=== PATIENT | female | born 1950 | race African-American/Black ===

== ENCOUNTER → 2016-04-20 | Outpatient (CLI) | payer MEDICARE, BC ==
[2015-06-28 17:15] VITALS: BP 125/71
[~2016-04-20] MED LIST: CHOL10003 PO; CRESTOR5 MG PO; DILT180C29 PO; MECL12.52 PO; PARO40TA3 PO
--- NOTE | 2016-04-20 12:37 | RAD ---
Indication: Persistent cough for 4 weeks. Technique: Two-view chest radiograph was obtained. Comparison is from June 28, 2015. Findings: Patient has developed a large right pleural effusion. There is associated atelectasis. Left lung is clear. Heart is not enlarged and there is no heart failure. Bony structures are intact. Impression: New large right pleural effusion.
== END | disposition home or self-care (01) ==
LOC: RAD 11:51
PROVIDERS: ATTEND Internal Medicine
DX: J90 Pleural effusion, not elsewhere classified (principal); J98.11 Atelectasis
CPT/HCPCS: 71020

== ENCOUNTER → 2016-04-21 | Day surgery (SDC) | payer MEDICARE, BC ==
[2016-04-21 15:00] VITALS: BP 143/67
--- NOTE | 2016-04-21 15:01 | PDOC ---
Provider Note Provider Note CONSULT DICTATED ON MY OFFICE LINE CALL OFFICE FOR A COPY CARLINE DOYLE MD Apr 21, 2016 15:01
--- NOTE | 2016-04-21 15:07 | PDOC4 ---
PROCEDURE Procedure THORACENTESIS PERFORMED 1200 CC REMOVED NO COMPLICATION SEE ORDERS CARLINE DOYLE MD Apr 21, 2016 15:07
--- NOTE | 2016-04-21 15:27 | RAD ---
Examination: Single frontal view of the chest. History: History of post thoracentesis Comparison: 04/20/2016 Findings: The cardiomediastinal silhouette grossly appears unremarkable. Mild elevation the right hemidiaphragm is identified. Lung base airspace opacity likely atelectasis or infiltrate. Probable small residual right pleural effusion identified. No evidence of pneumothorax. Impression: 1. No evidence of pneumothorax. Right lung base airspace opacity likely atelectasis or infiltrate with probable small residual right effusion.
[2016-04-21 16:13] LABS: BF CLARITY CLOUDY; BF COLOR YELLOW
--- NOTE | 2016-04-21 18:16 | OP ---
DATE OF SURGERY: 04/21/2016 ATTENDING PHYSICIAN: Carline Doyle MD. PROCEDURE: Thoracentesis. INDICATIONS: The patient with persistent cough presents with abnormal chest x-ray revealing large right-sided effusion. Risks, benefits, and alternatives reviewed with patient. She is undergoing both diagnostic and therapeutic thoracentesis, she is very short of air. DESCRIPTION OF PROCEDURE: Timeout was performed prior to initiating the procedure. The patient was prepped in sterile fashion. I percussed dullness to the right lower mid scapular area. The intercostal space was anesthetized with 1% lidocaine, total of 10 mL. I entered the subpleural space with the small needle that was utilized to anesthetize the intercostal space. There was free flowing fluid. A stab wound was performed. Thereafter a catheter over needle was inserted into the subpleural space. There was free flowing fluid, the catheter was advanced. Needle was removed. The catheter was then attached to a vacuum bottle and a total of 1200 mL of pleural fluid was removed. The patient tolerated procedure well with no immediate complications. IMPRESSION: Right-sided effusion, etiology unclear at this time. PLAN: We will send the pleural fluid for analysis. The patient is to follow up with me in the office next week. We will obtain chest x-ray prior to discharge. CARLINE DOYLE MD DR: LORNE/nishant JOB#: [id number] / [id number] SHANTHI Huff MD
--- NOTE | 2016-04-25 11:56 | PATHOLOGY ---
CYTOPATHOLOGY REPORT CLINICAL HISTORY: Right pleural effusion. SPECIMEN(S) RECEIVED: A.Pleural fluid, Right FINAL DIAGNOSIS: Right pleural fluid, ThinPrep and cell block: - No malignant cells identified. Few mesothelial cells and inflammatory cells identified. (JPM:csd; d/t: 04/25/2016) PATHOLOGIST: Brian Gomez M.D. REPORT ELECTRONICALLY SIGNED BY: Brian Gomez M.D. DATE/TIME: 04/25/2016 11:55 GROSS PATHOLOGY: A. Pleural fluid, Right: The specimen is submitted unfixed, labeled "Lauren Nelson". Received by the Cytology Department is five mL of cloudy yellow fluid. One ThinPrep slide and a cell block were prepared. (clt 04.22.2016) BLUEPRINT ASSEMBLER(S): UCHE Virk(ASCP) INITIAL CPT CODE(S): A; 30154, 63393 Professional services performed by [facility] [place] [address] Technical services performed by [facility] at [address] [place] [address], [address] [address]. PATIENT: LAUREN NELSON /AGE: 5 1950 (Age: 65) SEX: F PATIENT #: [id number] ALT CASE #: SPECIMEN COLLECTION DATE: 04/21/2016 SPECIMEN RECEIVED DATE: 04/22/[address] [facility] [address] [place] [address], [address] [place] [address] PHONE: [phone] DIRECTOR: Jeremy Giron M.D. * * * END OF REPORT * * *
== END | disposition home or self-care (01) ==
LOC: SURG 13:07
PROVIDERS: ATTEND Internal Medicine Pulmonary Disease
DX: J90 Pleural effusion, not elsewhere classified (principal); E78.00 Pure hypercholesterolemia, unspecified; K21.9 Gastro-esophageal reflux disease without esophagitis; Z12.4 Encounter for screening for malignant neoplasm of cervix; M19.90 Unspecified osteoarthritis, unspecified site; F41.9 Anxiety disorder, unspecified; F10.99 Alcohol use, unspecified with unspecified alcohol-induced disorder
CPT/HCPCS: 71010; 82945; 83986; 84157; 87071; 87075; 87102; 87116; 87205; 89050

== ENCOUNTER → 2016-04-25 | Outpatient (CLI) | payer MEDICARE, BC ==
[2016-04-21 15:00] VITALS: BP 143/67
[~2016-04-25] MED LIST changes: +IOHEXOL 300 MG/ML 75 ML VIAL IV ONE
[2016-04-25 12:37] LABS: CREATININE 0.6 mg/dL (0.6-1.0); GFR 120.7
--- NOTE | 2016-04-25 14:24 | RAD ---
Indication pulmonary effusion. Contrast imaging through the chest was performed. No prior CT imaging is available of the chest. 75 cc of Omnipaque 300 was administered intravenously. Note is made of recent plain films and a chest x-ray June 26, 2015 interpreted as unremarkable. The thoracic aorta appears unremarkable. There is no significant hilar or mediastinal adenopathy. The left lung is clear. There is a small right pleural effusion. There is a vascular slightly lobulated soft tissue mass at the right lung base measuring 12 cm in greatest dimension. There are some peripheral calcifications and large central calcification seen associated with the mass. The etiology is unclear. Considerations would include a very aggressive primary neoplasm, possible fungal disease or an amyloidoma . Hydatid disease is felt less likely but cannot be entirely excluded The finding is not typical of pneumonia. An additional finding in the chest is not seen. IMPRESSION: Lobulated 12 cm vascular, partially calcified, mass at the right lung base. The etiology is unclear. See above discussion PQRS Compliance Statement: One or more of the following individualized dose reduction techniques were utilized for this examination: 1. Automated exposure control 2. Adjustment of the mA and/or kV according to patient size 3. Use of iterative reconstruction technique
== END | disposition home or self-care (01) ==
LOC: CT 12:07
PROVIDERS: ATTEND Internal Medicine Pulmonary Disease
DX: R91.8 Other nonspecific abnormal finding of lung field (principal)
CPT/HCPCS: 36415; 71260; 82565; 84520

== ENCOUNTER → 2016-04-28 | Outpatient (CLI) | payer MEDICARE, BC ==
[2016-04-21 15:00] VITALS: BP 143/67
[~2016-04-28] MED LIST changes: -IOHEXOL 300 MG/ML 75 ML VIAL IV ONE
--- NOTE | 2016-04-28 14:38 | RAD ---
Indication lung mass. PET/CT was performed from the skull through the proximal thigh. CT was performed primarily for attenuation and localization purposes as opposed primary diagnostic purposes. 11.8 mCi of FDG was injected. The blood sugar during the examination was 95. No prior PET/CT imaging is available. Note is made of a CT examination of the chest 04/25/2016 demonstrating a complex, vascular and partially calcified mass in the right lower lobe. On CT the visualized brain appears unremarkable. No abnormality is seen in the neck. Known mass in the right lower lobe is reproduced. Known right pleural fluid is additionally noted. These findings are all similar to the recent CT examination. The abdomen and pelvis appear unremarkable. On PET the known mass in the right lower lobe is noted to be moderately FDG avid. There is likely a component of necrosis centrally within the calcific portion of the mass. The FDG avid portion of the mass demonstrates maximum SUVs of approximately 5. There is a more intense focus of FDG activity in the right hilar area, probably representing activity in a lymph node. Maximum SUV associated with this finding is 7.4. No definite abnormal mediastinal activity is seen. The pleural fluid is not FDG avid. The radiopharmaceutical is physiologic distributed in the abdomen and pelvis. IMPRESSION: Known mass in the right lower lobe is moderately FDG avid. Maximum SUVs associated with the mass is approximately 5. (There is likely a component of central necrosis associated with the mass). The mass demonstrates equivocal SUV numbers. Neoplastic disease or infection are still in the differential. (The latter is somewhat favored). Somewhat more avid area of increased uptake in the right hilum probably reflects reactive activity in a lymph node
== END | disposition home or self-care (01) ==
LOC: PETSC 12:30
PROVIDERS: ATTEND Internal Medicine Pulmonary Disease
DX: R91.8 Other nonspecific abnormal finding of lung field (principal)
CPT/HCPCS: 78815; A9552

== ENCOUNTER 2016-05-09 06:42 | Outpatient (CLI) | payer MEDICARE, BC ==
[2016-05-09] VITALS (18 sets, daily range): BP systolic 115–142; BP diastolic 61–71
[2016-05-09] MEDS ORDERED: GLUC100018 PO (07:15)
[2016-05-09] MEDS ORDERED: MULT-129 PO (07:15)
[2016-05-09] MEDS ORDERED: ASPI-482 PO (07:15)
[2016-05-09] MEDS ORDERED: ESTR1TAB3 PO (07:15)
[2016-05-09 07:24] LABS: BASO % 1 % (0-3); EOS % 5 % (0-3); HEMATOCRIT 38.2 % (36.0-47.0); HEMOGLOBIN 12.5 g/dL (12.0-15.5); LYMPH % 17 % (24-48); MEAN CORPUSCULAR HEMOGLOBIN 30 pg (25-35); MEAN CORPUSCULAR HGB CONC 33 g/dL (31-37); MEAN CORPUSCULAR VOLUME 91 fL (79-100); MONO % 7 % (0-9); NEUT % 70 % (31-73); PLATELET COUNT 269 x10^3/uL (140-400); RED BLOOD COUNT 4.19 x10^6/uL (3.50-5.40); RED CELL DISTRIBUTION WIDTH 13.6 % (11.5-14.5); WHITE BLOOD COUNT 6.1 x10^3/uL (4.0-11.0)
[2016-05-09 07:47] LABS: INR 1.1 (0.8-1.1); PROTHROMBIN TIME PATIENT 13.4 SEC (11.7-14.0)
[2016-05-09] MEDS ORDERED: LIDOCAINE 1% / SOD BICARB 8.4% 20 ML VIAL. IJ ONE ×2 (08:11→09:00)
[2016-05-09] MEDS ORDERED: FENTANYL PF 100 MCG/2 ML VIAL. ONE (08:32)
[2016-05-09] MEDS ORDERED: MIDAZOLAM HCL/PF 2 MG/2 ML VIAL. ONE (08:32)
[2016-05-09] MEDS ORDERED: MIDAZOLAM HCL/PF 2 MG/2 ML VIAL. IV ONE (09:00)
[2016-05-09] MEDS ORDERED: FENTANYL PF 100 MCG/2 ML VIAL. IV ONE (09:00)
--- NOTE | 2016-05-09 09:48 | PDOC ---
MODERATE SEDATION ASSESSMENT RISKS/ALTERNATIVES Risks/Alternatives Risks and alternatives of this type of sedation and procedure discussed with: RISK/ALTERNATIVES: Patient H & P ON CHART H & P H & P on chart and reviewed for co-morbid conditions and appropriate labs. H&P ON CHART: Yes STATUS PREG STATUS ASSESSED: N/A MEDS/ALLERGIES REVIEWED Meds/Allergies Reviewed Medications and Allergies including time and route of recently administered narcotics and sedatives. MEDS/ALLERGIES REVIEWED: Yes ASA RATING ASA RATING: II AIRWAY ASSESSMENT Airway Assessment Airway patency, oral function limitations, presence of caps, crowns, dentures, partials, and ability to extend neck assessed. AIRWAY ASSESSMENT: Yes MALLAMPATI SCORE MALLAMPATI SCORE: II PRE-SEDATION ASSESSMENT PRE-SEDATION ASSESSMENT: Yes MITCHEL DE LA ROSA MD May 09, 2016 09:48
--- NOTE | 2016-05-09 09:58 | PDOC ---
Exam News Reporter News Reporter Kimber Audio Visual Facilities Engineer Audio Visual Facilities Engineer B Cates Pre-Procedure Diagnosis Pre-Procedure Diagnosis Large, rim calcified, 12cm x 6 cm right lung mass, with pleural fluid---new since June 2015---Infectious vs neoplastic Post-Procedure Diagnosis Post-Procedure Diagnosis Same Procedure Performed Procedure Performed CT guided Dx/Tx thoracentesis CT guided rt lung mass bx Type of Anesthesia Type of Anesthesia Local + Mod sedation Estimated Blood Loss EBL: Minimal Specimens Specimans 1000 cc right pleural fluid---initially yellow-slt hazy, becoming bloody------ Samples to micro and cyto 6 14G core bx-----3 bx to micro and 3 bx to path Condition of Patient Condition of Patient Stable. No apparent complication. No immediate post bx Ptx. Disposition Disposition From IR/CT to [facility]. 1 hr post thora/bx insp/exp CXR requested. May discharge home from [facility] post recovery, if no Ptx or other problem. F/u with Dr Roque. Full report to follow. MITCHEL DE LA ROSA MD May 09, 2016 09:57
--- NOTE | 2016-05-09 10:03 | PDOC1 ---
History and Physical Date of Procedure Date of Admission 05/09/[address] guided Dx/Tx right thoracentesis CT guided right lung mass bx Indication Indication 65 YO female with very large, partially rim calcified, 12cm x 6cm right lung mass, with pleural fluid-----new since June of 2016-----neoplastic vs infectious Past Medical History Past Medical History See Nursing Pre Procedure PMH Past Surgical History Past Surgical History See Nursing Pre Procedure PSH Current Medications Current Medications Current Medications Lidocaine/Sodium Bicarbonate (Buffered Lidocaine 1%) 20 ml STK-MED ONCE IJ ; Start 05/09/16 at 08:11; Stop 05/09/16 at 08:12; Status DC Fentanyl Citrate (Fentanyl 2ml Vial) 100 mcg STK-MED ONCE .ROUTE ; Start at 08:32; Stop 05/09/16 at 08:33; Status DC Midazolam HCl (Versed) 2 mg STK-MED ONCE .ROUTE ; Start 05/09/16 at 08:32; Stop 05/09/16 at 08:33; Status DC Lidocaine/Sodium Bicarbonate (Buffered Lidocaine 1%) 20 ml 1X ONCE IJ Last administered on 05/09/16 09:44; Start 05/09/16 at 09:00; Stop 05/09/16 at 09:13; Status DC Midazolam HCl (Versed) 2 mg 1X ONCE IV Last administered on 05/09/16 09:45; Start 05/09/16 at 09:00; Stop 05/09/16 at 09:13; Status DC Fentanyl Citrate (Fentanyl 2ml Vial) 100 mcg 1X ONCE IV Last administered on 09:45; Start 05/09/16 at 09:00; Stop 05/09/16 at 09:13; Status DC Active Scripts Active Reported One Daily For Women 50+ Adv Tb (Multivitamins-Min/Fa/Ginkgo) 1 Each Tablet 1 Each PO DAILY Glucosamine (Glucosamine Sulfate 2KCL) 1,000 Mg Tablet 500 Mg PO DAILY Aspir 81 (Aspirin) 81 Mg Tablet.dr 81 Mg PO DAILY Prempro 0.3 Mg-1.5 Mg Tablet (Estrogen,Con/M-Progest Acet) 1 Each Tablet 1 Each PO DAILY Vitamin D3 (Cholecalciferol (Vitamin D3)) 1,000 Unit Tablet 1 Tab PO DAILY Crestor (Rosuvastatin Calcium) 5 Mg Tablet 20 PO HS Diltiazem 24HR Cd (Diltiazem Hcl) 180 Mg Cap.er.24h 180 Mg PO DAILY Paroxetine Hcl 40 Mg Tablet 20 Mg PO DAILY Allergies Allergies: Coded Allergies: Sulfa (Sulfonamide Antibiotics) (Verified Allergy, Severe, facial swelling and rash, 04/21/16) Physical Exam Vital Signs Vital Signs Date Time Temp Pulse Resp B/P Pulse Ox O2 Delivery O2 Flow Rate FiO2 05/09/16 09:45 14 98 Nasal Cannula 3.0 05/09/16 09:41 70 05/09/16 07:51 97.1 133/71 97.1 Lungs: Other (diminished breath sounds rt lung base. Left lung clear) Heart: Regular rate Psych/Mental Status: Mental status NL Diagnostic Data/Imaging Images PMC CT chest from 04/25/16 and PET from 04/28/16 personally reviewed. Assessment Assessment Large, rapidly growing, partially rim calcific 12cm x 6cm rt lung mass, with surrounding pleural fluid-----neoplastic vs infectious Problems: Plan Plan CT guided Dx/Tx right thoracentesis---samples to micro and cyto CT guided rt lung mass bx---samples to micro and path MITCHEL DE LA ROSA MD May 09, 2016 10:03
--- NOTE | 2016-05-09 11:34 | RAD ---
Chest-inspiration and expiration AP views, 05/09/2016: History: Post lung biopsy evaluation Comparison is made to a study from 04/21/2016. There is an ongoing mass with adjacent infiltrate and pleural fluid in the right lower chest. The amount of pleural fluid appears to have increased. The left chest is clear. The heart size and pulmonary vascularity are normal. There is no evidence of pneumothorax. IMPRESSION: 1. Persistent mass with adjacent infiltrate and increasing pleural fluid in the right lower chest. 2. No evidence of pneumothorax status post right lung biopsy.
--- NOTE | 2016-05-10 07:11 | RAD ---
CT-guided right thoracentesis CT-guided right lung mass biopsy Indication: 65-year-old female with a large, elongated, 12 cm x 6 cm rim calcific mass within right lower lung. This mass was not present on a chest x-ray done in June of last year. A moderately large surrounding pleural effusion is present. CT-guided biopsy of the lung mass has been requested. To facilitate the biopsy, preliminary image guided thoracentesis was considered indicated. Anesthesia: 50 minutes moderate sedation was provided utilizing a total of 2 mg Versed and 100 mcg fentanyl, IV. The patient was appropriately monitored by a qualified independent observer throughout the time of moderate sedation. PQRS Compliance Statement: One or more of the following individualized dose reduction techniques was/were utilized for this CT examination or procedure: 1. Automated exposure control. 2. Adjustment of mA and/or kV according to patient size. 3. Iterative reconstruction technique. Procedure: Informed consent was obtained from the patient. She was placed supine on the CT scanner. Preliminary noncontrast CT images confirmed the presence of a large, elongated, rim calcific mass within right lower hemithorax, with a moderately large associated pleural effusion. Moderate sedation was provided with IV Versed and fentanyl. CT-guided thoracentesis: A skin site suitable for CT-guided thoracentesis was selected and marked along the lower lateral aspect of right hemithorax. That area was prepped and draped in the usual sterile fashion. Using aseptic technique, local anesthesia, and CT guidance, a small micropuncture sheath was successfully introduced into right posterolateral pleural space. The micropuncture sheath was exchanged over a guidewire for a 6 Irish drainage catheter. Approximately 1000 cc of pleural fluid was then evacuated. This pleural fluid was initially yellow-slightly hazy, eventually becoming somewhat bloody. Samples of the initial yellow-slightly hazy pleural fluid were submitted to microbiology and to cytology. Post thoracentesis CT images revealed significant reduction in volume of right pleural fluid, without pneumothorax. Patient tolerated the procedure well. The 6 Irish pleural drainage catheter was left in place during the subsequent CT-guided lung biopsy. CT-guided right lung biopsy: Following successful, uneventful CT-guided right thoracentesis, attention was turned to the elongated, large, rim calcific lesion occupying the right lower lung. A skin site suitable for CT-guided biopsy was selected and marked along the lateral aspect of lower right chest. That area was prepped and draped in the usual sterile fashion. Using aseptic technique, local anesthesia, and CT guidance, a 13-gauge needle was successfully introduced into the right lung mass. A total of 6 14-gauge core biopsy samples were obtained. 3 biopsy samples were submitted to microbiology. 3 biopsy samples were submitted in formalin to pathology. The biopsy needle was removed and a sterile dressing was applied. Patient tolerated the procedure well without apparent complication. Completion CT images revealed no postbiopsy pneumothorax. Therefore, the 6 Irish pleural drain previously placed for right thoracentesis was removed and a sterile dressing was applied. Impression: 1. Successful, uneventful CT-guided right diagnostic/therapeutic thoracentesis, as described. 2. Uneventful CT-guided biopsy of large, elongated, rim calcific right lung mass, as described.
--- NOTE | 2016-05-10 16:01 | PATHOLOGY ---
CYTOPATHOLOGY REPORT CLINICAL HISTORY: Very large Right lung mass. SPECIMEN(S) RECEIVED: A.Pleural fluid, Right FINAL DIAGNOSIS: Right pleural fluid, ThinPrep and cell block: - Atypical cells identified. - Few atypical and reactive mesothelial cells identified within a background of mesothelial cells and scattered inflammatory cells. (JPM:mgr; d/t: 05/10/16) PATHOLOGIST: Brian Gomez M.D. REPORT ELECTRONICALLY SIGNED BY: Brian Gomez M.D. DATE/TIME: 05/10/2016 16:00 GROSS PATHOLOGY: A. Pleural fluid, Right: The specimen is submitted unfixed, labeled "Lauren Nelson". Received by the Cytology Department is 25 mL of cloudy yellow fluid. One ThinPrep slide and a cell block were prepared. (clt 05.09.2016) SCREW DRIVER OPERATOR(S): UCHE Gomez(ASCP) INITIAL CPT CODE(S): A; 65201, 03712 Professional services performed [place] [facility] [place] [address] Technical services performed by [facility] at [address] [place] [address], [place] [address]. PATIENT: LAUREN NELSON /AGE: 5 1950 (Age: 65) SEX: F PATIENT #: [id number] ALT CASE #: SPECIMEN COLLECTION DATE: 05/09/2016 SPECIMEN RECEIVED DATE: 05/09/[address] [facility] [address] [place] [address], [address] [place] [address] PHONE: [phone] DIRECTOR: Jeremy Giron M.D. * * * END OF REPORT * * *
== END 2016-05-09 12:10 | disposition home or self-care (01) ==
LOC: INTRAD 06:42
PROVIDERS: ATTEND Internal Medicine Pulmonary Disease
DX: J90 Pleural effusion, not elsewhere classified (principal); E78.00 Pure hypercholesterolemia, unspecified; K21.9 Gastro-esophageal reflux disease without esophagitis; M19.90 Unspecified osteoarthritis, unspecified site; F32.9 Major depressive disorder, single episode, unspecified; Z85.41 Personal history of malignant neoplasm of cervix uteri; Z72.89 Other problems related to lifestyle
CPT/HCPCS: 32405; 32555; 36415; 71035; 77012; 85027; 85610; 87071; 87075; 87102; 87116; 87205; A4215; C1729; C1892; C1894; J2250; J3010; 88112; 88305

== ENCOUNTER → 2016-05-12 | Outpatient (CLI) | payer MEDICARE, BC ==
[2016-05-09 11:30] VITALS: BP 131/68
[~2016-05-12] MED LIST changes: +ASPI-482 PO; +ESTR1TAB3 PO; +GLUC100018 PO; +MULT-129 PO
--- NOTE | 2016-05-17 11:41 | RESP ---
DATE OF SERVICE: 05/12/2016 The patient underwent full pulmonary function testing on 05/12/2016. The FEV1 to FVC ratio was 78%. FEV1 was 1.63 liters at 85% of predicted. FVC was 2.07 liters at 84% of predicted. No bronchodilator was administered. Total lung capacity was 108% of predicted. Diffusion capacity was 78% of predicted. IMPRESSION: 1. Mild air flow limitation. 2. Slightly decrease in diffusion capacity. CARLINE DOYLE MD DR: LORNE/nishant JOB#: [id number] / [id number]
== END | disposition home or self-care (01) ==
LOC: PF 07:54
PROVIDERS: ATTEND Internal Medicine Pulmonary Disease
DX: R06.2 Wheezing (principal)
CPT/HCPCS: 94010; 94729

== ENCOUNTER → 2016-05-20 | Day surgery (SDC) | payer MEDICARE, BC ==
[~2016-05-20] MED LIST changes: +HYDROmorphone 2 MG/ML VIAL IV PRN; +IV RINGERS,LACTATED 1000ML 1,000 ML IV SCH; +LIDOCAINE 1% 1 ML SYRINGE. ID PRN; +MORPHINE SULFATE 2 MG/ML DISP.SYRIN. IV PRN; +ONDANSETRON PF 4 MG/2 ML VIAL. IV PRN; +PROCHLORPERAZINE 10 MG/2 ML VIAL. IV PRN; +PROPOFOL 20 ML IV ONE; +fentaNYL PF VIAL 100 MCG/2 ML VIAL IV PRN
[2016-05-20 12:58] LABS: BASO % 1 % (0-3); EOS % 9 % (0-3); HEMATOCRIT 36.7 % (36.0-47.0); HEMOGLOBIN 12.4 g/dL (12.0-15.5); LYMPH # 1.3 x10^3/uL (1.0-4.8); LYMPH % 18 % (24-48); MEAN CORPUSCULAR HEMOGLOBIN 30 pg (25-35); MEAN CORPUSCULAR HGB CONC 34 g/dL (31-37); MEAN CORPUSCULAR VOLUME 89 fL (79-100); MONO % 9 % (0-9); NEUT % 64 % (31-73); PLATELET COUNT 336 x10^3/uL (140-400); RED BLOOD COUNT 4.14 x10^6/uL (3.50-5.40); RED CELL DISTRIBUTION WIDTH 13.4 % (11.5-14.5); WHITE BLOOD COUNT 7.2 x10^3/uL (4.0-11.0)
[2016-05-20 13:14] LABS: INR 1.1 (0.8-1.1); PROTHROMBIN TIME PATIENT 13.4 SEC (11.7-14.0)
[2016-05-20 15:03] VITALS: BP 126/65
--- NOTE | 2016-05-20 20:24 | OP ---
DATE OF SURGERY: 05/20/2016 ATTENDING PHYSICIAN: Chaka Weber. PROCEDURE: Bronchoscopy. INDICATIONS: The patient with a recent diagnosis of sarcoma of the right lung, undergoing bronchoscopic evaluation to rule out any endobronchial extension of the tumor. Risks, benefits, and alternatives reviewed with patient and she consented. MEDICATIONS: See anesthesia's notes. ____ Timeout was performed prior to sedation. Vital signs and O2 saturation were maintained within normal limits. Bronchoscope was passed through the right naris. Vocal cords were identified moving bilaterally without any dysfunction. Vocal cords were anesthetized with a total of 5 mL of 4% lidocaine. Bronchoscope was passed through the vocal cords into the proximal trachea, which was normal. The distal trachea was normal. The right and left segments and subsegments were all inspected. There was no endobronchial lesion. FINDINGS: 1. Normal vocal cords. 2. No endobronchial lesion. CARLINE DOYLE MD DR: LORNE/nishant JOB#: [id number] / [id number]
== END ==
LOC: SURG 11:54
PROVIDERS: ATTEND Internal Medicine Pulmonary Disease
DX: C34.91 Malignant neoplasm of unspecified part of right bronchus or lung (principal); E78.5 Hyperlipidemia, unspecified; M19.90 Unspecified osteoarthritis, unspecified site; F32.9 Major depressive disorder, single episode, unspecified; K21.9 Gastro-esophageal reflux disease without esophagitis; Z98.890 Other specified postprocedural states; Z86.79 Personal history of other diseases of the circulatory system; Z72.89 Other problems related to lifestyle
CPT/HCPCS: 31622; 36415; 85027; 85610; J2704

== ENCOUNTER → 2016-07-05 | Outpatient (CLI) | payer MEDICARE, BC ==
[2016-05-20 15:03] VITALS: BP 126/65
[~2016-07-05] MED LIST changes: -HYDROmorphone 2 MG/ML VIAL IV PRN; -IV RINGERS,LACTATED 1000ML 1,000 ML IV SCH; -LIDOCAINE 1% 1 ML SYRINGE. ID PRN; -MORPHINE SULFATE 2 MG/ML DISP.SYRIN. IV PRN; -ONDANSETRON PF 4 MG/2 ML VIAL. IV PRN; -PROCHLORPERAZINE 10 MG/2 ML VIAL. IV PRN; -PROPOFOL 20 ML IV ONE; -fentaNYL PF VIAL 100 MCG/2 ML VIAL IV PRN
--- NOTE | 2016-07-05 13:46 | RAD ---
Exam: PA and lateral chest radiograph History: Cough, diagnosis of right lung cancer April 2016. Comparison: 05/09/2016. Findings: Cardiac silhouette appears within normal limits for size. No pneumothorax is seen. Left lung appears clear. There is continued opacification of the right inferior hemithorax, which is probably combination of pleural effusion and known mass. Impression: Opacification of the right inferior hemithorax, likely combination of pleural effusion and mass.
== END | disposition home or self-care (01) ==
LOC: RAD 13:10
PROVIDERS: ATTEND Internal Medicine Pulmonary Disease
DX: C34.91 Malignant neoplasm of unspecified part of right bronchus or lung (principal)
CPT/HCPCS: 71020

== ENCOUNTER → 2016-08-22 | Outpatient (CLI) | payer MEDICARE, BC ==
[2016-05-20 15:03] VITALS: BP 126/65
[~2016-08-22] MED LIST changes: +CONTRAST GIVEN MC PRN; +IOHEXOL 240 MG/ML 50ML VIAL. PO ONE; +IOHEXOL 300 MG/ML 75 ML VIAL IV ONE
--- NOTE | 2016-08-22 11:36 | RAD ---
EXAM: CT OF THE CHEST, ABDOMEN AND PELVIS WITH INTRAVENOUS CONTRAST. HISTORY: Lung cancer restaging. TECHNIQUE: Computed tomography of the chest, abdomen and pelvis was performed after the intravenous administration of 75 mL Omnipaque 300. COMPARISON: 04/25/2016. FINDINGS: Bone windows reveal no suspicious lesions. The rim calcified mass in the right lung base has significantly increased in size since the prior study. It now measures 16.1 x 12.2 x 10.7 cm as compared with approximately 12 x 8 cm previously. A 2nd uncalcified portion inferomedially abuts the right atrial border and measures 4.8 x 4.2 cm. Previously this measured 4.0 x 3.1 cm. It is unclear if this is a pleural or pulmonary lesion. The right lower lobe is mostly atelectatic. A moderate to large right pleural effusion has increased in size. There are no pathologically enlarged mediastinal or axillary lymph nodes. There is a small amount of pericardial fluid. The heart is not enlarged. The left lung remains clear. A subcentimeter cyst in the right hepatic lobe is stable. Uncalcified cholelithiasis is suspected. The pancreas, adrenal glands, kidneys and spleen are unremarkable. There are no pathologically enlarged lymph nodes. The appendix is not inflamed. The uterus is lobulated suggesting fibroids. There is no obstruction. IMPRESSION: 1. Significant interval increase in size and the right pleural or pulmonary mass which now measures 16 x 12 cm. There are rim calcified, cystic and solid uncalcified components. 2. Increased moderate to large right pleural effusion. 3. No evidence of distant metastatic disease. 4. Lobulated uterus suggesting small fibroids. Sonography could further evaluate if there is persistent concern. *One or more of the following individualized dose reduction techniques were utilized for this examination: 1. Automated exposure control. 2. Adjustment of the mA and/or kV according to patient size. 3. Use of iterative reconstruction technique.
== END | disposition home or self-care (01) ==
LOC: CT 08:49
PROVIDERS: ATTEND Internal Medicine Hematology & Oncology
DX: C34.31 Malignant neoplasm of lower lobe, right bronchus or lung (principal); J90 Pleural effusion, not elsewhere classified
CPT/HCPCS: 71260; 74177; Q9966; Q9967

== ENCOUNTER 2016-09-14 08:40 | Outpatient (CLI) | payer MEDICARE, BC ==
[~2016-09-14] VITALS: Ht 162.6 cm; Wt 58.1 kg
[2016-09-14] VITALS (8 sets, daily range): BP systolic 128–140; BP diastolic 69–81
[~2016-09-14 08:40] MED LIST changes: -CONTRAST GIVEN MC PRN; -IOHEXOL 240 MG/ML 50ML VIAL. PO ONE; -IOHEXOL 300 MG/ML 75 ML VIAL IV ONE
[2016-09-14 09:08] LABS: BASO % 1 % (0-3); EOS % 2 % (0-3); HEMATOCRIT 37.3 % (36.0-47.0); LYMPH # 0.8 x10^3/uL (1.0-4.8); LYMPH % 12 % (24-48); MEAN CORPUSCULAR HEMOGLOBIN 28 pg (25-35); MEAN CORPUSCULAR HGB CONC 32 g/dL (31-37); MEAN CORPUSCULAR VOLUME 88 fL (79-100); MONO % 9 % (0-9); NEUT % 77 % (31-73); PLATELET COUNT 284 x10^3/uL (140-400); RED BLOOD COUNT 4.26 x10^6/uL (3.50-5.40); RED CELL DISTRIBUTION WIDTH 19.1 % (11.5-14.5); WHITE BLOOD COUNT 6.6 x10^3/uL (4.0-11.0)
[2016-09-14 09:18] LABS: INR 1.2 (0.8-1.1); PROTHROMBIN TIME PATIENT 14.9 SEC (11.7-14.0)
[2016-09-14] MEDS ORDERED: DOXY100C2 PO (09:22)
--- NOTE | 2016-09-14 09:56 | RAD ---
Indication right lateral effusion. Calcified mass. Prethoracentesis. PA and lateral views of the chest were obtained. Comparison is made to an examination 07/05/2016. Note is made of a CT examination 08/22/2016 demonstrating a right pleural effusion and a pleural-based or parenchymal mass in the right lung. The heart and pulmonary vessels are unremarkable and the left lung is clear. There is diminished aeration of the right lung relative to the previous plain film exam compatible with increasing pleural fluid. IMPRESSION: Increasing pleural fluid in the right lung
[2016-09-14] MEDS ORDERED: LIDOCAINE 1% / SOD BICARB 8.4% 20 ML VIAL. IJ ONE ×2 (10:20→10:30)
--- NOTE | 2016-09-14 12:27 | RAD ---
Indication post thoracentesis. A single view of the chest was obtained at 1211 and is compared to an examination approximately 2 1/2 hours earlier. There is less right pleural fluid compatible with interval thoracentesis. No complication is seen and specifically no pneumothorax is seen. IMPRESSION: No evidence of pneumothorax post thoracentesis
--- NOTE | 2016-09-14 14:46 | RAD ---
Ultrasound-guided right thoracentesis 09/14/2016 Indication: Recurrent malignant effusion Procedure: The risks and benefits of the procedure were discussed patient. Informed consent was obtained. The patient was brought to the interventional suite placed in the seated position. A timeout procedure was performed. The right posterior chest was prepped and draped using sterile barrier technique. Ultrasound evaluation demonstrated a moderate pleural effusion surrounding a atelectatic right lower lobe. Right lower lobe mass which is partially calcified is seen by ultrasound. 1% lidocaine without epinephrine was administered for local anesthesia. A 5 Monegasque Yueh needle was advanced into the pleural space under direct ultrasound guidance. 1.2 L of pleural fluid was removed. The catheter was removed and manual pressure held to achieve hemostasis. A sterile dressing was applied. No immediate complications were identified. Impression: Successful ultrasound-guided right thoracentesis
== END 2016-09-14 12:45 | disposition home or self-care (01) ==
LOC: INTRAD 08:40
PROVIDERS: ATTEND Internal Medicine
DX: J91.0 Malignant pleural effusion (principal); E78.00 Pure hypercholesterolemia, unspecified; I48.91 Unspecified atrial fibrillation; K21.9 Gastro-esophageal reflux disease without esophagitis; M19.90 Unspecified osteoarthritis, unspecified site; F32.9 Major depressive disorder, single episode, unspecified; Z85.41 Personal history of malignant neoplasm of cervix uteri; Z87.39 Personal history of other diseases of the musculoskeletal system and connective tissue; Z72.89 Other problems related to lifestyle; Z88.2 Allergy status to sulfonamides
CPT/HCPCS: 32555; 36415; 71010; 71020; 85027; 85610

== ENCOUNTER → 2016-10-24 | Outpatient (CLI) | payer MEDICARE, BC ==
[2016-09-14 12:25] VITALS: BP 134/79
[~2016-10-24] MED LIST changes: +DOXY100C2 PO
--- NOTE | 2016-10-24 12:10 | RAD ---
Indication shortness of air. Frontal and lateral views of the chest were obtained and are compared to an examination 09/14/2016. There is a large right pleural effusion. The amount of pleural fluid is similar to slightly greater than on the previous exam. The heart and pulmonary vessels appear normal. The left lung is clear. IMPRESSION: Large right pleural effusion
== END | disposition home or self-care (01) ==
LOC: RAD 11:36
PROVIDERS: ATTEND Internal Medicine Pulmonary Disease
DX: J90 Pleural effusion, not elsewhere classified (principal); R06.02 Shortness of breath
CPT/HCPCS: 71020

== ENCOUNTER → 2016-11-02 | Day surgery (SDC) | payer MEDICARE, BC ==
[2016-11-02 12:00] VITALS: BP 151/82
--- NOTE | 2016-11-02 12:07 | RAD ---
EXAM: Chest, 2 views. HISTORY: Pleural effusion. COMPARISON: 10/24/2016. FINDINGS: Frontal and lateral views of the chest are obtained. There is a large right pleural effusion, similar compared to the prior study. The right lung apex remains aerated. There is suspected stable right mid and lower thorax airspace disease. The left lung is clear. The heart is normal in size. IMPRESSION: Large right pleural effusion with mid and lower lung airspace disease, stable in appearance.
--- NOTE | 2016-11-02 13:28 | PDOC4 ---
PROCEDURE Procedure FULL REPORT DICTATED [id number] REMOVED [id number] CC STRAW COLOR FLUID NO IMMEDIATE COMPLICATIONS CARLINE DOYLE MD Nov 02, 2016 13:28
--- NOTE | 2016-11-02 13:51 | RAD ---
EXAM: Chest, 2 views. HISTORY: Thoracentesis. COMPARISON: 11/02/2016. FINDINGS: Frontal and lateral views of the chest are obtained. There has been slight interval decrease in a moderate right pleural effusion. There is a partially peripherally calcified mass within the right lower thorax. There is right middle and lower lobe atelectasis or infiltrate. There is left basilar atelectasis. The heart is normal in size. IMPRESSION: 1. Slight interval decrease in a moderate right pleural effusion. No pneumothorax is seen status post thoracentesis. 2. Partially peripherally calcified right lower lobe mass, better characterized on the CT dated 08/22/2016. 3. Right middle lobe and lower lobe atelectasis or infiltrate.
--- NOTE | 2016-11-02 17:58 | OP ---
DATE OF SURGERY: 11/02/2016 PROCEDURE: Thoracentesis. INDICATIONS: The patient with recurrent pleural effusion, suspect malignant, has a history of cancer, undergoing a diagnostic and therapeutic thoracentesis. She is becoming more short of air. Chest x-ray revealed reaccumulation of pleural fluid on the right side. Risks, benefits and alternatives reviewed with the patient and she consented. DESCRIPTION OF PROCEDURE: The patient was prepped in sterile fashion. I percussed dullness to the right midscapular lower back. A 1% lidocaine was utilized to anesthetize the intercostal space. A stab wound was performed. A catheter over needle was inserted into the pleural space with return of free flowing straw-colored fluid. The needle was removed. The catheter was attached to a vacuum bottle. A total of 1300 mL of fluid was removed. The patient tolerated the procedure well with minimal discomfort ____ and she had some discomfort and cough. IMPRESSION: 1. Recurrent malignant effusion. 2. Progressive dyspnea. PLAN: Therapeutic and diagnostic thoracentesis as indicated above. CARLINE DOYLE MD DR: LORNE/nishant JOB#: [id number] / [id number] Feliciano You MD, Dr.
== END | disposition home or self-care (01) ==
LOC: SURG 11:44
PROVIDERS: ATTEND Internal Medicine Pulmonary Disease
DX: J91.0 Malignant pleural effusion (principal); J98.11 Atelectasis; E78.00 Pure hypercholesterolemia, unspecified; I48.91 Unspecified atrial fibrillation; K21.9 Gastro-esophageal reflux disease without esophagitis; F32.9 Major depressive disorder, single episode, unspecified; Z87.39 Personal history of other diseases of the musculoskeletal system and connective tissue; Z85.118 Personal history of other malignant neoplasm of bronchus and lung; Z72.89 Other problems related to lifestyle; Z88.2 Allergy status to sulfonamides
CPT/HCPCS: 71020

== ENCOUNTER → 2016-12-13 | Day surgery (SDC) | payer MEDICARE, BC ==
[2016-12-13 13:30] VITALS: BP 144/65
--- NOTE | 2016-12-13 15:20 | PDOC4 ---
PROCEDURE Procedure THORACENTESIS PERFORMED REMOVED 1300 CC OF STRAW COLOR FLUID NO COMPLICATION NOTE DICTATED CARLINE DOYLE MD Dec 13, 2016 15:20
--- NOTE | 2016-12-13 15:51 | RAD ---
Portable AP upright chest x-ray performed at 1530 History: Status post right-sided thoracentesis. IMPRESSION: A large right-sided pleural effusion is again evident and is smaller in size since the previous study dated December 12, 2016 after a thoracentesis. A tiny pneumothorax is seen laterally. Left lung field remains clear.
--- NOTE | 2016-12-13 18:19 | OP ---
DATE OF SURGERY: 12/13/2016 PROCEDURE: Thoracentesis. INDICATIONS: Recurrent pleural effusion. The patient is undergoing cancer treatment under the direction of Dr. Jordan. The patient called the office with increasing shortness of breath. Chest x-ray was obtained revealing increasing right-sided effusion. Risks, benefits and alternatives to thoracentesis were reviewed with the patient. She consented. DESCRIPTION OF PROCEDURE: Timeout was performed prior to performing the procedure. The patient was sat up at the edge of the bed. I percussed dullness to the right midscapular lower back area. The skin was prepped in sterile fashion. The intercostal space was anesthetized with a total of 10 mL of 1% lidocaine. I entered this pleural space with a small needle. There was free flowing fluid. The needle was removed. A stab wound was performed. The catheter over needle was inserted into the pleural space. There was free flowing fluid. The needle was removed. The catheter was attached to a vacuum bottle and a total of 1300 mL of straw-colored fluid was removed. The patient tolerated the procedure well with no immediate complications. IMPRESSION: Suspect recurrent pleural effusion related to malignancy. PLAN: Repeat chest x-ray. Follow up with Dr. Jordan. CARLINE DOYLE MD DR: LORNE/nishant JOB#: [id number] / [id number] ALEXEY Saleh MD
== END | disposition home or self-care (01) ==
LOC: SURG 13:09
PROVIDERS: ATTEND Internal Medicine Pulmonary Disease
DX: J90 Pleural effusion, not elsewhere classified (principal); K21.9 Gastro-esophageal reflux disease without esophagitis; F32.9 Major depressive disorder, single episode, unspecified; E78.00 Pure hypercholesterolemia, unspecified; I48.91 Unspecified atrial fibrillation; Z85.118 Personal history of other malignant neoplasm of bronchus and lung; Z88.2 Allergy status to sulfonamides
CPT/HCPCS: 71010

== ENCOUNTER 2017-02-21 11:23 | Outpatient (CLI) | payer MEDICARE, BC ==
[2017-02-21] MEDS ORDERED: LIDOCAINE WITH 8.4% SOD BICARB 3 ML DISP.SYRIN. IJ (12:57)
[2017-02-21 13:34] LABS: INR 1.2 (0.8-1.1); PROTHROMBIN TIME PATIENT 14.7 SEC (11.7-14.0)
[2017-02-21] MEDS: LIDOCAINE WITH 8.4% SOD BICARB 3 ML DISP.SYRIN. IJ (14:13)
== END 2017-02-21 15:55 | disposition home or self-care (01) ==
LOC: RAD 11:23
DX: J90 Pleural effusion, not elsewhere classified (principal); J98.11 Atelectasis
CPT/HCPCS: 32555; 36415; 71045; 71046; 85610; 87102; 87116; 87205; 88112; 88305

== ENCOUNTER → 2017-03-22 | Day surgery (SDC) | payer MEDICARE, BC | END | disposition home or self-care (01) | LOC: SURG 12:07 | DX: J90 Pleural effusion, not elsewhere classified (principal); E78.00 Pure hypercholesterolemia, unspecified; I48.91 Unspecified atrial fibrillation; K21.9 Gastro-esophageal reflux disease without esophagitis; M19.90 Unspecified osteoarthritis, unspecified site; F32.9 Major depressive disorder, single episode, unspecified; Z72.89 Other problems related to lifestyle; Z87.39 Personal history of other diseases of the musculoskeletal system and connective tissue; Z88.2 Allergy status to sulfonamides | CPT/HCPCS: 32554; 71045 ==

== ENCOUNTER 2017-04-14 07:14 | Outpatient (CLI) | payer MEDICARE, BC ==
[2017-04-14 07:37] LABS: ADD MAN DIFF? NO
[2017-04-14 07:40] LABS: BASO % 1 % (0-3); EOS # 0.1 x10^3/uL (0.0-0.7); EOS % 2 % (0-3); HEMATOCRIT 37.4 % (36.0-47.0); LYMPH # 0.8 x10^3/uL (1.0-4.8); LYMPH % 13 % (24-48); MEAN CORPUSCULAR HEMOGLOBIN 28 pg (25-35); MEAN CORPUSCULAR HGB CONC 32 g/dL (31-37); MEAN CORPUSCULAR VOLUME 87 fL (79-100); MONO # 0.5 x10^3/uL (0.0-1.1); MONO % 9 % (0-9); NEUT # 4.5 x10^3uL (1.8-7.7); NEUT % 75 % (31-73); PLATELET COUNT 307 x10^3/uL (140-400); RED CELL DISTRIBUTION WIDTH 15.7 % (11.5-14.5)
[2017-04-14 08:00] LABS: INR 1.2 (0.8-1.1); PROTHROMBIN TIME PATIENT 14.1 SEC (11.7-14.0)
== END 2017-04-14 11:32 | disposition home or self-care (01) ==
LOC: INTRAD 07:14
DX: J90 Pleural effusion, not elsewhere classified (principal); E78.00 Pure hypercholesterolemia, unspecified; I48.91 Unspecified atrial fibrillation; M19.90 Unspecified osteoarthritis, unspecified site; F32.9 Major depressive disorder, single episode, unspecified; K21.9 Gastro-esophageal reflux disease without esophagitis; Z88.1 Allergy status to other antibiotic agents; Z85.118 Personal history of other malignant neoplasm of bronchus and lung; Z86.010 Personal history of colon polyps; Z98.890 Other specified postprocedural states; Z88.2 Allergy status to sulfonamides
CPT/HCPCS: 32555; 36415; 71045; 85025; 85610

== ENCOUNTER 2017-05-09 08:38 | Outpatient (CLI) | payer MEDICARE, BC ==
[2017-05-09 09:08] LABS: ADD MAN DIFF? NO
[2017-05-09 09:13] LABS: BASO % 1 % (0-3); EOS # 0.2 x10^3/uL (0.0-0.7); EOS % 2 % (0-3); HEMATOCRIT 35.5 % (36.0-47.0); HEMOGLOBIN 11.4 g/dL (12.0-15.5); LYMPH # 0.7 x10^3/uL (1.0-4.8); LYMPH % 10 % (24-48); MEAN CORPUSCULAR HEMOGLOBIN 28 pg (25-35); MEAN CORPUSCULAR HGB CONC 32 g/dL (31-37); MEAN CORPUSCULAR VOLUME 86 fL (79-100); MONO # 0.7 x10^3/uL (0.0-1.1); MONO % 10 % (0-9); NEUT # 5.6 x10^3uL (1.8-7.7); NEUT % 78 % (31-73); PLATELET COUNT 319 x10^3/uL (140-400); RED BLOOD COUNT 4.13 x10^6/uL (3.50-5.40); RED CELL DISTRIBUTION WIDTH 16.3 % (11.5-14.5); WHITE BLOOD COUNT 7.2 x10^3/uL (4.0-11.0)
[2017-05-09] MEDS ORDERED: LIDOCAINE WITH 8.4% SOD BICARB 3 ML DISP.SYRIN. (09:19)
[2017-05-09 09:22] LABS: INR 1.2 (0.8-1.1); PROTHROMBIN TIME PATIENT 14.2 SEC (11.7-14.0)
[2017-05-09] MEDS: LIDOCAINE WITH 8.4% SOD BICARB 3 ML DISP.SYRIN. IJ (10:15)
[2017-05-09] MEDS ORDERED: ACETAMINOPHEN 325 MG TABLET. PO ×2 (11:45→12:00)
== END 2017-05-09 12:33 | disposition home or self-care (01) ==
LOC: INTRAD 08:38
DX: J90 Pleural effusion, not elsewhere classified (principal)
CPT/HCPCS: 32555; 36415; 71045; 85025; 85610

== ENCOUNTER 2017-06-02 07:04 | Outpatient (CLI) | payer MEDICARE, BC ==
[2017-06-02] MEDS ORDERED: LIDOCAINE WITH 8.4% SOD BICARB 3 ML DISP.SYRIN. (07:55)
[2017-06-02] MEDS: LIDOCAINE WITH 8.4% SOD BICARB 3 ML DISP.SYRIN. IJ (08:15)
== END 2017-06-02 13:16 | disposition home or self-care (01) ==
LOC: INTRAD 07:04
DX: J90 Pleural effusion, not elsewhere classified (principal)
CPT/HCPCS: 32555; 71045; 71046

== ENCOUNTER 2017-06-04 08:41 | Emergency (ER) | payer MEDICARE, BC ==
[2017-06-04] MEDS ORDERED: fentaNYL PF VIAL 100 MCG/2 ML VIAL IV (09:30)
[2017-06-04 09:51] LABS: ADD MAN DIFF? NO
[2017-06-04 09:54] LABS: BASO % 1 % (0-3); EOS # 0.2 x10^3/uL (0.0-0.7); EOS % 2 % (0-3); HEMATOCRIT 36.1 % (36.0-47.0); LYMPH # 0.7 x10^3/uL (1.0-4.8); LYMPH % 9 % (24-48); MEAN CORPUSCULAR HEMOGLOBIN 28 pg (25-35); MEAN CORPUSCULAR HGB CONC 33 g/dL (31-37); MEAN CORPUSCULAR VOLUME 85 fL (79-100); MONO # 0.8 x10^3/uL (0.0-1.1); MONO % 9 % (0-9); NEUT # 6.4 x10^3uL (1.8-7.7); NEUT % 79 % (31-73); PLATELET COUNT 349 x10^3/uL (140-400); RED BLOOD COUNT 4.26 x10^6/uL (3.50-5.40); RED CELL DISTRIBUTION WIDTH 16.8 % (11.5-14.5); WHITE BLOOD COUNT 8.1 x10^3/uL (4.0-11.0)
[2017-06-04 10:04] LABS: ANION GAP 7 (6-14); BLOOD UREA NITROGEN 14 mg/dL (7-20); BUN/CREATININE RATIO 28 (6-20); CALCIUM 9.6 mg/dL (8.5-10.1); CARBON DIOXIDE 31 mmol/L (21-32); CHLORIDE 105 mmol/L (98-107); CREATININE 0.5 mg/dL (0.6-1.0); GFR 148.5; GLUCOSE 103 mg/dL (70-99); POTASSIUM 4.4 mmol/L (3.5-5.1); SODIUM 143 mmol/L (136-145)
[2017-06-04 10:10] LABS: ALBUMIN/GLOBULIN RATIO 0.6 (1.0-1.7); ALK PHOS 120 U/L (46-116); ALT (SGPT) 15 U/L (14-59); AST (SGOT) 15 U/L (15-37); TOTAL BILIRUBIN 0.5 mg/dL (0.2-1.0); TOTAL PROTEIN 7.7 g/dL (6.4-8.2)
[2017-06-04 10:11] LABS: TROPONINI < 0.017 ng/mL (0.000-0.055)
[2017-06-04 10:14] LABS: NT-PRO BNP 130 pg/mL (0-124)
[2017-06-04 10:21] LABS: INR 1.1 (0.8-1.1); PROTHROMBIN TIME PATIENT 13.8 SEC (11.7-14.0)
[2017-06-04 10:22] LABS: BILIRUBIN,URINE NEGATIVE (NEG); CLARITY,URINE CLEAR; COLOR,URINE YELLOW; GLUCOSE,URINE NEGATIVE (NEG); NITRITE,URINE NEGATIVE (NEG); PROTEIN,URINE NEGATIVE (NEG-TRACE)
[2017-06-04 10:29] LABS: PARTIAL THROMBOPLASTIN TIME 34 SEC (24-38)
[2017-06-04 10:43] LABS: BACTERIA,URINE MANY /HPF (0-FEW); SQUAMOUS EPITHELIAL CELL,UR MOD /LPF
[2017-06-04] MEDS: HYDROcodone/APAP 5/325MG 1 TAB TABLET PO (10:49)
[2017-06-04] MEDS: ONDANSETRON PF 4 MG/2 ML VIAL. IV (11:27)
[2017-06-04] MEDS: IOHEXOL 300 MG/ML 100ML VIAL. IV (11:43)
[2017-06-04] MEDS: IV NORMAL SALINE 1000ML BAG 1,000 ML IV (13:11)
== END 2017-06-04 14:52 | disposition home or self-care (01) ==
LOC: ER 08:41
DX: R07.89 Other chest pain (principal); E78.00 Pure hypercholesterolemia, unspecified; K21.9 Gastro-esophageal reflux disease without esophagitis; F32.9 Major depressive disorder, single episode, unspecified; Z88.2 Allergy status to sulfonamides
CPT/HCPCS: 36415; 71046; 71275; 80053; 81001; 83880; 84484; 85025; 85610; 85730; 87086; 93005; 96361; 96374; 99285-25; J2405; J7030; Q9967

== ENCOUNTER 2017-06-18 23:09 | Inpatient (IN) | payer MEDICARE, BC ==
[2017-06-18] MEDS ORDERED: CONTRAST GIVEN MC (23:45)
[2017-06-18 23:46] LABS: ADD MAN DIFF? NO
[2017-06-18 23:49] LABS: BASO % 0 % (0-3); EOS # 0.1 x10^3/uL (0.0-0.7); EOS % 1 % (0-3); HEMATOCRIT 31.5 % (36.0-47.0); HEMOGLOBIN 10.2 g/dL (12.0-15.5); LYMPH # 0.7 x10^3/uL (1.0-4.8); LYMPH % 6 % (24-48); MEAN CORPUSCULAR HEMOGLOBIN 28 pg (25-35); MEAN CORPUSCULAR HGB CONC 32 g/dL (31-37); MEAN CORPUSCULAR VOLUME 85 fL (79-100); MONO % 9 % (0-9); NEUT # 9.8 x10^3uL (1.8-7.7); NEUT % 85 % (31-73); PLATELET COUNT 430 x10^3/uL (140-400); RED BLOOD COUNT 3.69 x10^6/uL (3.50-5.40); RED CELL DISTRIBUTION WIDTH 16.7 % (11.5-14.5); WHITE BLOOD COUNT 11.5 x10^3/uL (4.0-11.0)
[2017-06-19 00:02] LABS: ANION GAP 6 (6-14); BLOOD UREA NITROGEN 11 mg/dL (7-20); BUN/CREATININE RATIO 18 (6-20); CALCIUM 9.4 mg/dL (8.5-10.1); CARBON DIOXIDE 31 mmol/L (21-32); CHLORIDE 101 mmol/L (98-107); CREATININE 0.6 mg/dL (0.6-1.0); GFR 119.9; GLUCOSE 106 mg/dL (70-99); POTASSIUM 3.8 mmol/L (3.5-5.1); SODIUM 138 mmol/L (136-145)
[2017-06-19 00:08] LABS: ALBUMIN 2.9 g/dL (3.4-5.0); ALBUMIN/GLOBULIN RATIO 0.6 (1.0-1.7); ALK PHOS 129 U/L (46-116); ALT (SGPT) 19 U/L (14-59); AST (SGOT) 26 U/L (15-37); TOTAL BILIRUBIN 0.5 mg/dL (0.2-1.0); TOTAL PROTEIN 7.5 g/dL (6.4-8.2)
[2017-06-19 00:11] LABS: LACTIC ACID 1.4 mmol/L (0.4-2.0); TROPONINI < 0.017 ng/mL (0.000-0.055)
[2017-06-19 00:14] LABS: NT-PRO BNP 119 pg/mL (0-124)
[2017-06-19] MEDS: IOHEXOL 300 MG/ML 100ML VIAL. IV (00:43)
[2017-06-19] MEDS ORDERED: fentaNYL PF VIAL 100 MCG/2 ML VIAL IV (01:15)
[2017-06-19] MEDS ORDERED: ACETAMINOPHEN 325 MG TABLET. PO ×2 (08:30)
[2017-06-19] MEDS ORDERED: MAGNESIUM HYDROXIDE 2,400 MG/30 ML ORAL.SUSP. PO (08:30)
[2017-06-19] MEDS: ESTROGEN/M-PROGEST 0.3/1.5MG TABLET. PO (09:00)
[2017-06-19] MEDS: CHOLECALCIFEROL (VITAMIN D3) 1,000 UNIT TABLET PO (09:00)
[2017-06-19] MEDS: PARoxetine 20 MG TABLET PO (09:51)
[2017-06-19] MEDS ORDERED: LIDOCAINE WITH 8.4% SOD BICARB 3 ML DISP.SYRIN. (12:09)
[2017-06-19] MEDS: LIDOCAINE WITH 8.4% SOD BICARB 3 ML DISP.SYRIN. INJ (12:53)
[2017-06-19] MEDS: HYDROcodone/APAP 5/325MG 1 TAB TABLET PO ×2 (14:03→21:52)
[2017-06-19 15:56] LABS: BF CLARITY TURBID; BF COLOR RED; BF SOURCE PLEURAL; BF WBC COUNT 1400 /cmm
[2017-06-19 15:57] LABS: BF MON % 57 %; BF PMN % 43 %; BF RBC COUNT 466316 /cmm
[2017-06-19] MEDS: ATORVASTATIN CALCIUM 40 MG TABLET. PO (19:55)
[2017-06-19] MEDS: ONDANSETRON PF 4 MG/2 ML VIAL. IV (21:55)
[2017-06-20 05:05] LABS: ADD MAN DIFF? NO
[2017-06-20 05:14] LABS: BASO % 0 % (0-3); EOS # 0.3 x10^3/uL (0.0-0.7); EOS % 4 % (0-3); HEMATOCRIT 28.9 % (36.0-47.0); HEMOGLOBIN 9.6 g/dL (12.0-15.5); LYMPH # 0.5 x10^3/uL (1.0-4.8); LYMPH % 7 % (24-48); MEAN CORPUSCULAR HEMOGLOBIN 28 pg (25-35); MEAN CORPUSCULAR HGB CONC 33 g/dL (31-37); MEAN CORPUSCULAR VOLUME 86 fL (79-100); MONO # 0.7 x10^3/uL (0.0-1.1); MONO % 10 % (0-9); NEUT # 5.8 x10^3uL (1.8-7.7); NEUT % 79 % (31-73); PLATELET COUNT 373 x10^3/uL (140-400); RED BLOOD COUNT 3.37 x10^6/uL (3.50-5.40); RED CELL DISTRIBUTION WIDTH 16.7 % (11.5-14.5); WHITE BLOOD COUNT 7.3 x10^3/uL (4.0-11.0)
[2017-06-20 05:43] LABS: ANION GAP 4 (6-14); BLOOD UREA NITROGEN 9 mg/dL (7-20); CARBON DIOXIDE 34 mmol/L (21-32); CHLORIDE 104 mmol/L (98-107); CREATININE 0.4 mg/dL (0.6-1.0); GFR 191.5; GLUCOSE 87 mg/dL (70-99); POTASSIUM 3.8 mmol/L (3.5-5.1); SODIUM 142 mmol/L (136-145)
[2017-06-20] MEDS: PARoxetine 20 MG TABLET PO (08:00)
[2017-06-20] MEDS: CHOLECALCIFEROL (VITAMIN D3) 1,000 UNIT TABLET PO (08:00)
[2017-06-20] MEDS: ESTROGEN/M-PROGEST 0.3/1.5MG TABLET. PO (09:00)
== END 2017-06-20 15:00 | disposition home or self-care (01) | DRG 180 ==
LOC: ER 23:09 → 4 NORTH 23:39
PROC: 0W993ZZ Drainage of Right Pleural Cavity, Percutaneous Approach (ICD-10-PCS; principal; 2017-06-19)
DX: C34.31 Malignant neoplasm of lower lobe, right bronchus or lung (principal); J96.91 Respiratory failure, unspecified with hypoxia; J90 Pleural effusion, not elsewhere classified; D72.829 Elevated white blood cell count, unspecified; D63.0 Anemia in neoplastic disease; E78.00 Pure hypercholesterolemia, unspecified; E78.5 Hyperlipidemia, unspecified; K21.9 Gastro-esophageal reflux disease without esophagitis; F32.9 Major depressive disorder, single episode, unspecified; Z85.41 Personal history of malignant neoplasm of cervix uteri; Z88.1 Allergy status to other antibiotic agents; Z51.11 Encounter for antineoplastic chemotherapy; Z80.9 Family history of malignant neoplasm, unspecified
CPT/HCPCS: 32555; 36415; 71045; 71275; 80048; 80053; 83605; 83880; 84484; 85025; 87040; 87071; 87075; 87205; 89050; 93005; 94618; 96365; 99285; 99285-25; J1956; J2405; Q9967

== ENCOUNTER 2017-07-07 08:47 | Outpatient (CLI) | payer MEDICARE, BC ==
[2017-07-07] MEDS ORDERED: LIDOCAINE WITH 8.4% SOD BICARB 3 ML DISP.SYRIN. (09:14)
[2017-07-07] MEDS: LIDOCAINE WITH 8.4% SOD BICARB 3 ML DISP.SYRIN. INJ (09:48)
[2017-07-07] MEDS: diphenhydrAMINE HCL 25 MG CAPSULE PO (11:17)
[2017-07-07] MEDS: TRIAMCINOLONE ACETONIDE 0.1% TOPICAL CREAM 15GM TUBE. TP (11:18)
== END 2017-07-07 11:48 | disposition home or self-care (01) ==
LOC: INTRAD 08:47
DX: J90 Pleural effusion, not elsewhere classified (principal); Z88.1 Allergy status to other antibiotic agents; E78.00 Pure hypercholesterolemia, unspecified; F32.9 Major depressive disorder, single episode, unspecified; K21.9 Gastro-esophageal reflux disease without esophagitis; I48.91 Unspecified atrial fibrillation; Z85.118 Personal history of other malignant neoplasm of bronchus and lung; Z87.01 Personal history of pneumonia (recurrent); Z86.010 Personal history of colon polyps; Z98.890 Other specified postprocedural states; M17.11 Unilateral primary osteoarthritis, right knee; Z72.89 Other problems related to lifestyle; M06.841 Other specified rheumatoid arthritis, right hand
CPT/HCPCS: 32555; 71045; Q0163

== ENCOUNTER 2017-07-27 07:11 | Outpatient (CLI) | payer MEDICARE, BC ==
[2017-07-27 07:41] LABS: ADD MAN DIFF? NO
[2017-07-27 07:46] LABS: BASO % 0 % (0-3); EOS # 0.1 x10^3/uL (0.0-0.7); EOS % 2 % (0-3); HEMATOCRIT 29.4 % (36.0-47.0); HEMOGLOBIN 9.4 g/dL (12.0-15.5); LYMPH # 0.4 x10^3/uL (1.0-4.8); LYMPH % 6 % (24-48); MEAN CORPUSCULAR HEMOGLOBIN 26 pg (25-35); MEAN CORPUSCULAR HGB CONC 32 g/dL (31-37); MEAN CORPUSCULAR VOLUME 82 fL (79-100); MONO # 0.7 x10^3/uL (0.0-1.1); MONO % 10 % (0-9); NEUT # 5.2 x10^3uL (1.8-7.7); NEUT % 81 % (31-73); PLATELET COUNT 319 x10^3/uL (140-400); RED BLOOD COUNT 3.59 x10^6/uL (3.50-5.40); RED CELL DISTRIBUTION WIDTH 17.2 % (11.5-14.5); WHITE BLOOD COUNT 6.4 x10^3/uL (4.0-11.0)
[2017-07-27] MEDS ORDERED: LIDOCAINE WITH 8.4% SOD BICARB 3 ML DISP.SYRIN. (07:54)
[2017-07-27 08:00] LABS: INR 1.2 (0.8-1.1); PROTHROMBIN TIME PATIENT 14.7 SEC (11.7-14.0)
[2017-07-27] MEDS: LIDOCAINE WITH 8.4% SOD BICARB 3 ML DISP.SYRIN. INJ (08:23)
== END 2017-07-27 10:07 | disposition home or self-care (01) ==
LOC: INTRAD 07:11
DX: J90 Pleural effusion, not elsewhere classified (principal); C45.7 Mesothelioma of other sites; E78.00 Pure hypercholesterolemia, unspecified; I48.91 Unspecified atrial fibrillation; M06.9 Rheumatoid arthritis, unspecified; F32.9 Major depressive disorder, single episode, unspecified; Z72.89 Other problems related to lifestyle; Z98.890 Other specified postprocedural states
CPT/HCPCS: 32555; 36415; 71045; 85025; 85610

== ENCOUNTER 2017-08-18 07:12 | Outpatient (CLI) | payer MEDICARE, BC ==
[2017-08-18] MEDS ORDERED: LIDOCAINE WITH 8.4% SOD BICARB 3 ML DISP.SYRIN. (08:11)
[2017-08-18] MEDS: LIDOCAINE WITH 8.4% SOD BICARB 3 ML DISP.SYRIN. INJ (08:36)
== END 2017-08-18 10:10 | disposition home or self-care (01) ==
LOC: INTRAD 07:12
DX: J90 Pleural effusion, not elsewhere classified (principal); Z88.1 Allergy status to other antibiotic agents; E78.00 Pure hypercholesterolemia, unspecified; I48.91 Unspecified atrial fibrillation; Z85.118 Personal history of other malignant neoplasm of bronchus and lung; Z87.01 Personal history of pneumonia (recurrent); K21.9 Gastro-esophageal reflux disease without esophagitis; Z98.890 Other specified postprocedural states; M17.11 Unilateral primary osteoarthritis, right knee; M06.841 Other specified rheumatoid arthritis, right hand; F32.9 Major depressive disorder, single episode, unspecified; Z72.89 Other problems related to lifestyle
CPT/HCPCS: 32555; 71045

== ENCOUNTER → 2017-09-11 | Outpatient (CLI) | payer MEDICARE, BC | END | disposition home or self-care (01) | LOC: RAD 08:47 | DX: J90 Pleural effusion, not elsewhere classified (principal); I10 Essential (primary) hypertension; E78.00 Pure hypercholesterolemia, unspecified; E78.5 Hyperlipidemia, unspecified; M17.11 Unilateral primary osteoarthritis, right knee; F41.9 Anxiety disorder, unspecified; R91.8 Other nonspecific abnormal finding of lung field; Z86.2 Personal history of diseases of the blood and blood-forming organs and certain disorders involving the immune mechanism; Z85.118 Personal history of other malignant neoplasm of bronchus and lung; Z79.899 Other long term (current) drug therapy; Z87.01 Personal history of pneumonia (recurrent); Z86.79 Personal history of other diseases of the circulatory system; Z85.41 Personal history of malignant neoplasm of cervix uteri; Z92.3 Personal history of irradiation; Z87.39 Personal history of other diseases of the musculoskeletal system and connective tissue; Z80.3 Family history of malignant neoplasm of breast; Z83.3 Family history of diabetes mellitus; Z88.2 Allergy status to sulfonamides | CPT/HCPCS: 71046 ==

== ENCOUNTER 2017-09-13 07:40 | Outpatient (CLI) | payer MEDICARE, BC ==
[2017-09-13] MEDS ORDERED: LIDOCAINE WITH 8.4% SOD BICARB 3 ML DISP.SYRIN. (08:03)
[2017-09-13] MEDS: LIDOCAINE WITH 8.4% SOD BICARB 3 ML DISP.SYRIN. INJ (08:59)
== END 2017-09-13 11:00 | disposition home or self-care (01) ==
LOC: INTRAD 07:40
DX: J90 Pleural effusion, not elsewhere classified (principal); E78.00 Pure hypercholesterolemia, unspecified; I10 Essential (primary) hypertension; F32.9 Major depressive disorder, single episode, unspecified; E43 Unspecified severe protein-calorie malnutrition; I48.0 Paroxysmal atrial fibrillation; I47.1 Supraventricular tachycardia; I48.92 Unspecified atrial flutter; Z85.118 Personal history of other malignant neoplasm of bronchus and lung; J96.21 Acute and chronic respiratory failure with hypoxia; Z87.01 Personal history of pneumonia (recurrent); Z86.010 Personal history of colon polyps; K21.9 Gastro-esophageal reflux disease without esophagitis; Z98.890 Other specified postprocedural states; M17.11 Unilateral primary osteoarthritis, right knee; M06.841 Other specified rheumatoid arthritis, right hand; Z72.89 Other problems related to lifestyle; Z79.899 Other long term (current) drug therapy; Z88.2 Allergy status to sulfonamides; Z86.73 Personal history of transient ischemic attack (TIA), and cerebral infarction without residual deficits; Z82.49 Family history of ischemic heart disease and other diseases of the circulatory system; Z80.3 Family history of malignant neoplasm of breast; Z80.1 Family history of malignant neoplasm of trachea, bronchus and lung; Z83.3 Family history of diabetes mellitus; Z85.41 Personal history of malignant neoplasm of cervix uteri; Z99.81 Dependence on supplemental oxygen
CPT/HCPCS: 32555; 71045

== ENCOUNTER 2017-09-19 09:01 | Inpatient (IN) | payer MEDICARE, BC ==
[2017-09-19] VITALS (20 sets, daily range): BP systolic 95–149; BP diastolic 52–86
[~2017-09-19] VITALS: Ht 162.6 cm; Wt 48.8 kg
[~2017-09-19 09:01] MED LIST changes: +CHOL10002 PO; +DILT240C77 PO; +DOCU-109 PO; +ESOM20CA PO; +HYDR-2758 PO; +LEVO500T59 PO; +LORA0.5T PO; +METO25TA4 PO; +MULT1TAB90 PO; +ONDA4TAB7 PO
[2017-09-19] MEDS ORDERED: IV NORMAL SALINE 1000ML BAG 1,000 ML IV SCH (09:18)
--- NOTE | 2017-09-19 09:23 | PHYS DOC ---
Past Medical History Past Medical History: Cancer, Depression, GERD, High Cholesterol, Other Additional Past Medical Histor: RIGHT LUNG CA TREATED W/ CHEMO/RADIATION Past Surgical History: Other Additional Past Surgical Histo: D&C,MULTIPLE THORACENTESIS,R LUNG BIOPSY 2017 Alcohol Use: Rarely Drug Use: None Adult General Chief Complaint Chief Complaint: RAPID HEART RATE HPI HPI Patient is a 67-year-old female with a past history of lung cancer, who has a history of recurrent thoracenteses, on the right, and was scheduled for another one this morning. Her last thoracentesis was approximately 3 weeks ago. She states that when she checked in this morning they checked her vital signs and her heart rate was found to be elevated in the 160s, confirmed upon arrival to the emergency department. She does report some generalized left-sided chest discomfort but states that this has been present for months and is not new. She denies any sensation of palpitations, denies any other chest pain, any significant shortness of breath different than her baseline, and denies any dizziness or lightheadedness. She states that in August, her Cardizem was increased from 180 to 240mg daily, she states she has had "palpitations" in the past, but has not had any definitive arrhythmia that she is aware of. She does see Dr. Gloria is her process control technician. There are no alleviating, or exacerbating factors to her symptoms. Review of Systems Review of Systems Constitutional: Denies fever or chills [] Eyes: Denies change in visual acuity, redness, or eye pain [] HENT: Denies nasal congestion or sore throat [] Respiratory: Denies cough or shortness of breath [] Cardiovascular: No additional information not addressed in HPI [] GI: Denies abdominal pain, nausea, vomiting, bloody stools or diarrhea [] : Denies dysuria or hematuria [] Musculoskeletal: Denies back pain or joint pain [] Integument: Denies rash or skin lesions [] Neurologic: Denies headache, focal weakness or sensory changes [] Endocrine: Denies polyuria or polydipsia [] All other systems were reviewed and found to be within normal limits, except as documented in this note. Current Medications Current Medications Current Medications Medications (Trade) Dose Ordered Sig/Priya Start Time Stop Time Status Last Admin Dose Admin Diltiazem HCl (Cardizem) 20 mg 1X ONCE 09/19/17 09:45 09/19/17 09:46 DC 09/19/17 09:39 20 MG Diltiazem HCl 125 mg/Dextrose 125 ml @ 5 mls/hr CONT PRN 09/19/17 09:30 09/19/17 09:39 5 MLS/HR Sodium Chloride 1,000 ml @ 100 mls/hr Q10H 09/19/17 09:18 09/19/17 19:17 09/19/17 09:45 100 MLS/HR Allergies Allergies Allergies Coded Allergies Type Severity Reaction Last Updated Verified Sulfa (Sulfonamide Antibiotics) Allergy Severe facial swelling and rash Yes Physical Exam Physical Exam PHYSICAL EXAM: CONSTITUTIONAL: Well developed, well nourished HEAD: normocephalic, atraumatic EENT: PERRL, EOMI. Conjunctivae normal color, sclerae non-icteric; moist mucous membranes. NECK: Supple, non-tender; no meningismus.. There is no JVD. LUNGS: There are diminished breath sounds in the right lung martinez, the right upper lobe and the left lung martinez are clear to auscultation, breathing even and unlabored. Normal air movement. HEART: Rapid, regular rhythm, no murmur CHEST: No deformity; non-tender ABDOMEN: The abdomen is soft, and non-tender, no masses or bruits. EXTREM: Normal ROM; no deformity, no calf tenderness. Normal pulses palpable in all extremities. There is no pedal edema. SKIN: No rash; no diaphoresis NEURO: Alert; normal speech and cognition; CN's grossly intact; strength grossly intact without focal deficit. BACK: No CVA TTP. Current Patient Data Vital Signs Vital Signs Date Time Temp Pulse Resp B/P (MAP) Pulse Ox O2 Delivery O2 Flow Rate FiO2 09/19/17 10:17 87 17 107/60 (76) Nasal Cannula 2.0 09/19/17 09:18 98.4 2 98.4 Lab Values Laboratory Tests Test 09/19/17 09:20 White Blood Count 9.9 x10^3/uL (4.0-11.0) Red Blood Count 3.73 x10^6/uL (3.50-5.40) Hemoglobin 10.0 g/dL (12.0-15.5) L Hematocrit 31.4 % (36.0-47.0) L Mean Corpuscular Volume 84 fL (79-100) Mean Corpuscular Hemoglobin 27 pg (25-35) Mean Corpuscular Hemoglobin Concent 32 g/dL (31-37) Red Cell Distribution Width 19.4 % (11.5-14.5) H Platelet Count 279 x10^3/uL (140-400) Neutrophils (%) (Auto) 80 % (31-73) H Lymphocytes (%) (Auto) 7 % (24-48) L Monocytes (%) (Auto) 12 % (0-9) H Eosinophils (%) (Auto) 0 % (0-3) Basophils (%) (Auto) 0 % (0-3) Neutrophils # (Auto) 7.9 x10^3uL (1.8-7.7) H Lymphocytes # (Auto) 0.7 x10^3/uL (1.0-4.8) L Monocytes # (Auto) 1.2 x10^3/uL (0.0-1.1) H Eosinophils # (Auto) 0.0 x10^3/uL (0.0-0.7) Basophils # (Auto) 0.0 x10^3/uL (0.0-0.2) Prothrombin Time 16.0 SEC (11.7-14.0) H Prothrombin Time INR 1.3 (0.8-1.1) H Sodium Level 139 mmol/L (136-145) Potassium Level 4.0 mmol/L (3.5-5.1) Chloride Level 104 mmol/L (98-107) Carbon Dioxide Level 29 mmol/L (21-32) Anion Gap 6 (6-14) Blood Urea Nitrogen 17 mg/dL (7-20) Creatinine 0.5 mg/dL (0.6-1.0) L Estimated GFR (Cockcroft-Gault) 148.0 BUN/Creatinine Ratio 34 (6-20) H Glucose Level 122 mg/dL (70-99) H Calcium Level 10.0 mg/dL (8.5-10.1) Magnesium Level 1.9 mg/dL (1.8-2.4) Total Bilirubin 0.5 mg/dL (0.2-1.0) Aspartate Amino Transferase (AST) 20 U/L (15-37) Alanine Aminotransferase (ALT) 22 U/L (14-59) Alkaline Phosphatase 140 U/L (46-116) H Creatine Kinase 13 U/L (26-192) L Creatine Kinase MB (Mass) < 0.5 ng/mL (0.0-3.6) Creatine Kinase MB Relative Index % (0-4) Troponin I Quantitative < 0.017 ng/mL (0.000-0.055) OG-Ydl-O-Type Natriuretic Peptide 1078 pg/mL (0-124) H Total Protein 7.0 g/dL (6.4-8.2) Albumin 2.8 g/dL (3.4-5.0) L Albumin/Globulin Ratio 0.7 (1.0-1.7) L Thyroid Stimulating Hormone (TSH) 1.439 uIU/mL (0.358-3.74) Free Thyroxine 1.26 ng/dL (0.76-1.46) Laboratory Tests 09/19/17 09:20 Laboratory Tests 09/19/17 09:20 EKG EKG [Atrial flutter at a rate of 162 beats for minute, normal axis, normal intervals , there are no acute ischemic ST/T changes.] Repeat EKG, done at 10:28 AM shows sinus rhythm at a rate of 86 beats for minute , normal axis, normal intervals, there are no acute ischemic ST/T changes. Radiology/Procedures Radiology/Procedures [PROCEDURE: PORTABLE CHEST 1V Exam: AP portable chest History: Shortness of breath, lung cancer. Comparison: September 13, 2017. Findings: Evaluation of cardiac silhouette is limited, but probably unchanged. There is interval enlargement of right pleural effusion. Large calcified right lung mass is again seen. There may be small left pleural effusion. Impression: 1. Large calcified right lung mass. Interval enlargement of right pleural effusion. 2. Question small left pleural effusion. ] Course & Med Decision Making Course & Med Decision Making Pertinent Labs and Imaging studies reviewed. (See chart for details) [10:30 AM: The patient's condition remains stable at this time, she has converted back to normal sinus rhythm. I discussed the case with her process control technician, Dr. Gloria, who would like her admitted to the hospital for further evaluation. The patient's PCP, Dr. Macdonald, has seen her in the emergency department and will admit her for further evaluation.] CRITICAL CARE TIME: 40 Minutes, excluding any procedures and care of other patients. Dragon Disclaimer Dragon Disclaimer This electronic medical record was generated, in whole or in part, using a voice recognition dictation system. Departure Departure Impression: Primary Impression: Atrial flutter with rapid ventricular response Additional Impressions: Lung cancer Pleural effusion Admitting Physician: Feliciano Macdonald Condition: STABLE Referrals: FELICIANO MACDONALD MD (PCP) Problem Qualifiers PACO BURK MD Sep 19, 2017 09:23
[2017-09-19] MEDS ORDERED: dilTIAZem INJ 125 MG in IV DEXTROSE 5% 100ML 100 ML IV PRN (09:30)
[2017-09-19 09:44] LABS: BASO % 0 % (0-3); EOS % 0 % (0-3); HEMATOCRIT 31.4 % (36.0-47.0); LYMPH # 0.7 x10^3/uL (1.0-4.8); LYMPH % 7 % (24-48); MEAN CORPUSCULAR HEMOGLOBIN 27 pg (25-35); MEAN CORPUSCULAR HGB CONC 32 g/dL (31-37); MEAN CORPUSCULAR VOLUME 84 fL (79-100); MONO # 1.2 x10^3/uL (0.0-1.1); MONO % 12 % (0-9); NEUT # 7.9 x10^3uL (1.8-7.7); NEUT % 80 % (31-73); PLATELET COUNT 279 x10^3/uL (140-400); RED BLOOD COUNT 3.73 x10^6/uL (3.50-5.40); RED CELL DISTRIBUTION WIDTH 19.4 % (11.5-14.5); WHITE BLOOD COUNT 9.9 x10^3/uL (4.0-11.0)
[2017-09-19] MEDS ORDERED: dilTIAZem IV PUSH 25 MG/5 ML VIAL IVP ONE (09:45)
[2017-09-19 09:56] LABS: CREATININE 0.5 mg/dL (0.6-1.0)
[2017-09-19 10:06] LABS: ALBUMIN 2.8 g/dL (3.4-5.0); ALBUMIN/GLOBULIN RATIO 0.7 (1.0-1.7); MAGNESIUM 1.9 mg/dL (1.8-2.4); TOTAL BILIRUBIN 0.5 mg/dL (0.2-1.0)
[2017-09-19 10:08] LABS: FREE T4 1.26 ng/dL (0.76-1.46); THYROID STIM HORMONE (TSH) 1.439 uIU/mL (0.358-3.74)
[2017-09-19 10:09] LABS: CREATINE KINASE 13 U/L (26-192)
--- NOTE | 2017-09-19 10:33 | RAD ---
Exam: AP portable chest History: Shortness of breath, lung cancer. Comparison: September 13, 2017. Findings: Evaluation of cardiac silhouette is limited, but probably unchanged. There is interval enlargement of right pleural effusion. Large calcified right lung mass is again seen. There may be small left pleural effusion. Impression: 1. Large calcified right lung mass. Interval enlargement of right pleural effusion. 2. Question small left pleural effusion. Electronically signed by: Feliciano Gomez MD (09/19/2017 10:30 AM) [facility]
--- NOTE | 2017-09-19 11:22 | EKG ---
[facility] [address] [place] [address] Test Date: 2017-09-19 Test Time: 09:12:44 Pat Name: CHARMAINE RIVAS Department: Room: 202 1 Gender: F Pump Attendant: : 1950 Requested By: PACO BURK Order Number: [id number] Reading MD: Austin Cabrera MD Measurements Intervals [place] Rate: 163 P: 80 SC: 64 QRS: 21 QRSD: 76 T: -111 QT: 308 QTc: 513 Interpretive Statements SVT NON-SPECIFIC ST/T CHANGES Electronically Signed On 09-21-2017 15:18:42 CDT by Austin Cabrera MD
[2017-09-19] MEDS ORDERED: SENN8.6T99 PO (12:04)
[2017-09-19] MEDS: HYDROcodone/APAP 5/325MG 1 TAB TABLET PO PRN ×3 (13:10→22:17)
[2017-09-19] MEDS ORDERED: LIDOCAINE WITH 8.4% SOD BICARB 3 ML DISP.SYRIN. ONE (14:25)
--- NOTE | 2017-09-19 14:30 | CONS ---
DATE OF CONSULTATION: ATTENDING PHYSICIAN: Dr. Macdonald. REASON FOR CONSULTATION: Recurrent pleural effusion. 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 She had history of recurrent right-sided pleural effusions with thoracentesis at least 9-10 times. She has declined to have any PleurX catheter. She was scheduled to have a thoracentesis as an outpatient, but was noted to have an elevated heart rate in the 160s and as a result, she was hospitalized. She is currently on a Cardizem drip. She states that she has been having some increased dyspnea. There is also chest wall pain, which came back and she has this pain which is chronically in the past, but she said when she received the immunotherapy, it did improve. I have reviewed the patient's chest x-ray. It does show a large calcified right lung mass. There was enlargement of the right-sided pleural effusion as well. There is some mediastinal shift. PAST MEDICAL HISTORY: 1. Significant for sarcomatoid cancer of the right lung, status post chemo and immunotherapy and radiation with no response and slow progression. 2. History of right-sided malignant pleural effusion, which has required thoracentesis at least 9-10 times. She has declined a PleurX catheter. 3. History of depression. 4. GERD. 5. Dyslipidemia. PAST SURGICAL HISTORY: She had multiple thoracenteses and lung biopsy in 2017. ALLERGIES: SULFA. MEDICATIONS: Reviewed, as listed in the MRAD. REVIEW OF SYSTEMS: A 10-point system obtained. Pertinent positives discussed in my history of present illness, otherwise noncontributory. All systems that were negative were reviewed as well. SOCIAL HISTORY: Nonsmoker. PHYSICAL EXAMINATION: VITAL SIGNS: Reviewed. Pulse ox 96% on 2 liters. Her pulse is now 102. HEENT: Sclerae nonicteric. NECK: Supple. LUNGS: Diminished breath sounds right mid lung. CARDIOVASCULAR: Regular rate. ABDOMEN: Soft. EXTREMITIES: With no pitting edema. LABORATORY DATA: Reviewed. White cell count 9.9. BUN is 17, creatinine 0.5. IMPRESSION: Dyspnea with acute hypoxic respiratory failure secondary to recurrent right-sided pleural effusion. This is a patient who has a diagnosis of sarcomatoid carcinoma involving the right lung. She is status post chemo and immunotherapy along with radiation with ongoing continued progression of her mass. She has required thoracentesis at least 9-10 times and had declined to have PleurX catheter in the past and continues to do so. She was supposed to have elective thoracentesis today, but was hospitalized due to tachycardia. RECOMMENDATIONS: 1. From a pulmonary standpoint, I did discuss about the option of a PleurX catheter. She is not interested in it. She would like to have another thoracentesis done, which will be scheduled in the morning. 2. Follow Oncology recommendations. 3. Follow Cardiology recommendations. Currently, she is on a Cardizem drip. Her heart rate is controlled. 4. P.r.n. bronchodilators. 5. We will follow along with you. DALTON PETERSON MD DR: SHELLY/nishant JOB#: [id number] / [id number]
[2017-09-19] MEDS ORDERED: ACETAMINOPHEN 325 MG TABLET. PO PRN (15:15)
--- NOTE | 2017-09-19 15:20 | PDOC ---
Provider Note Provider Note history and physical dictated # [id number] SHANTHI VARGAS MD Sep 19, 2017 15:20
--- NOTE | 2017-09-19 16:13 | EKG ---
[facility] [address] [place] [address] Test Date: 2017-09-19 Test Time: 10:28:39 Pat Name: CHARMAINE RIVAS Department: Room: 202 1 Gender: F Engineer Specialist: : 1950 Requested By: PACO BURK Order Number: [id number] Reading MD: Austin Cabrera MD Measurements Intervals [place] Rate: 86 P: 56 [place]: 126 QRS: 10 QRSD: 70 T: 43 QT: 344 QTc: 414 Interpretive Statements SINUS RHYTHM Electronically Signed On 09-21-2017 15:19:10 CDT by Austin Cabrera MD
--- NOTE | 2017-09-19 16:34 | HP ---
ADMIT DATE: 09/19/2017 LOCATION: She is in room 202. HISTORY OF PRESENT ILLNESS: The patient is a 67-year-old female with history of sarcomatoid carcinoma of the right lung, has undergone chemotherapy and now immunotherapy and had limited radiation therapy, followed by Dr. Jordan and also at the [facility]. She has had several right-sided thoracentesis and she had one done last Monday, with I think about 700 mL of fluid removed. She notes that she was supposed to have another outpatient thoracentesis today and she went over to the Interventional Radiology, was noted to have a rapid heart rate and was sent to the Emergency Room where EKG showed she was in atrial flutter with a rapid ventricular response, received 20 mg of Cardizem IV, started on a Cardizem drip and she converted to sinus rhythm. She also had some left-sided chest discomfort that she had before and has been worked up in the past. It is more of an ache and was thought to be related to her tumor. It was the same type of pain she had before. She did have an echocardiogram in 07/2017, which showed a left ventricular ejection fraction of around 70% and there was a mass seen in the vicinity of the right atrium. This is related to her lung tumor. She is therefore admitted for further evaluation of her paroxysmal atrial flutter and also for thoracentesis. ALLERGIES AND INTOLERANCES: SULFA. MEDICATIONS: Prior to admission include vitamin D 1000 units every day, paroxetine 20 mg every day, [place] 5/325 one every 4 hours p.r.n., multiple vitamin once a day, metoprolol tartrate 25 mg b.i.d., diltiazem ER 240 mg every day, Crestor 20 mg every day, Deisy 180 mg every day p.r.n. PAST MEDICAL HISTORY: Significant for sarcomatoid carcinoma of the right lung, treated with chemotherapy and now immunotherapy and she had limited radiation therapy also. She is followed by Dr. Jordan and also followed at the [facility]. She has had numerous right-sided thoracenteses for recurrent pleural effusions. She declined a PleurX. She also has a history of hyperlipidemia, supraventricular tachycardia, gastroesophageal reflux disease. She had a colonoscopy in 2012, a LEEP procedure for carcinoma in situ. Had a D and C in 2009, EGD in 2010, benign left breast biopsy in 2005. She has had colon polyps in the past in 2013, history of depression and hyperlipidemia. SOCIAL HISTORY: She does not drink alcohol nor does she smoke cigarettes. She has been within the last year. FAMILY HISTORY: Mother had congestive heart failure and diabetes mellitus. REVIEW OF SYSTEMS: GENERAL: There has been no fever, chills or sweats. CARDIOVASCULAR: No angina, but does have some chest wall pain. PULMONARY: No cough. She is not short of breath at rest. ENDOCRINE: No diabetes mellitus. SKIN: No rashes. The rest of systems reviewed are negative except as stated in history of present illness. PHYSICAL EXAMINATION: VITAL SIGNS: Temperature is 98.4 degrees, apical pulse 82, respiratory rate 20, blood pressure 105/61. Oxygen saturation 96% on 2 liters per nasal cannula. HEENT: Eyes: Gaze is conjugate. Mouth: Tongue is midline. NECK: There is no cervical lymphadenopathy. HEART: Reveals an S1, S2. There is no S3 or murmur. LUNGS: Revealed decreased breath sounds in the right lung and she has clear lungs on the left. ABDOMEN: Soft, nontender with no hepatosplenomegaly, masses, or tenderness. EXTREMITIES: Lower extremities without edema. SKIN: No rashes. NEUROLOGIC: Revealed no focal weakness of the extremities or facial asymmetry. LABORATORY DATA: The white count is 9.9, hemoglobin 10, platelet count 279,000, 80 polys and 7 lymphocytes. INR was 1.3. Sodium 139, potassium 4.0, chloride 104, total CO2 of 29, BUN 17, creatinine 0.5, blood sugar 122. Liver function tests were okay. Alkaline phosphatase 140. CPK of 13. Troponin level was less than 0.017. BNP was 1078. Albumin 2.8 and thyroid function tests were normal. She had a chest x-ray done, which showed a large calcified right lung mass with an increased right pleural effusion and questionable small left pleural effusion. The electrocardiogram showed atrial flutter with a rapid ventricular response and then she converted to normal sinus rhythm in the Emergency Room after the Cardizem bolus and drip. ASSESSMENT: 1. Paroxysmal atrial flutter with a rapid ventricular response, converted to normal sinus rhythm with IV Cardizem bolus and drip. 2. Right pleural effusion, which is recurrent. 3. 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 4. Anemia of chronic disease. 5. Moderate protein calorie malnutrition. 6. Hyperlipidemia. PLAN: At this time is to consult Dr. Lenz for Pulmonary who has already seen the patient. We will consult Dr. Gloria for Cardiology. We will put her on a telemetry unit. Continue with the Cardizem drip and also her metoprolol. She will be seen by the interventional radiologist for a right-sided thoracentesis. Repeat her labs again tomorrow. Concern is that the tumor has invaded the right atrium and is contributing to the arrhythmias. Defer any anticoagulation to Dr. Gloria. SHANTHI VARGAS MD DR: RUBIO/nishant JOB#: [id number] / [id number]
[2017-09-19] MEDS: PARoxetine 20 MG TABLET PO SCH (17:18)
[2017-09-19] MEDS ORDERED: dilTIAZem HCL 30 MG TABLET PO ONE (17:30)
--- NOTE | 2017-09-19 18:26 | PDOC2 ---
CONSULT Date of Consult Date of Consult DATE: 09/19/17 TIME: 18:20 Reason for Consult Reason for Consult: Atrial flutter Referring Physician Referring Physician: Dr. Macdonald Identification/Chief Complaint Chief Complaint Dyspnea and atrial flutter History of Present Illness Reason for Visit: This patient is a very pleasant 67-year-old lady that has a known history of paroxysmal atrial fibrillation and atrial flutter. She has been well controlled in the past with by mouth Cardizem. The patient was found to have a lung cancer that is stage IV with recurrent pleural effusion and has been having multiple thoracentesis. She came in for a thoracentesis and was found to be in atrial flutter with a rate of about 160. The patient was seen and evaluated in the ER and I was called to see her. I instructed them to give her a bolus of IV Cardizem and to start her on a drip. With this she converted to sinus rhythm. At the time that I am seeing the patient she is in sinus and is feeling a little better. She is quite anxious with the whole situation. Past Medical History Cardiovascular: AFIB, HTN Pulmonary: Other GI: GERD, Gastritis Heme/Onc: Cancer Musculoskeletal: Osteoarthritis Current Problem List Problem List Problems Medical Problems: (1) Atrial flutter with rapid ventricular response Status: Acute Current Medications Current Medications Current Medications Diltiazem HCl (Cardizem) 20 mg 1X ONCE IVP Last administered on 09/19/17at 09: 39; Start 09/19/17 at 09:45; Stop 09/19/17 at 09:46; Status DC Sodium Chloride 1,000 ml @ 100 mls/hr Q10H IV Last administered on 09/19/17at 09:45; Start 09/19/17 at 09:18; Stop 09/19/17 at 19:17 Diltiazem HCl 125 mg/Dextrose 125 ml @ 5 mls/hr CONT PRN IV SEE I/O RECORD Last administered on 09/19/17at 09:39; Start 09/19/17 at 09:30 Acetaminophen/ Hydrocodone Bitart (Lortab 5/325) 1 tab PRN Q4HRS PRN PO PAIN Last administered on 09/19/17at 17:18; Start 09/19/17 at 10:45 Lidocaine/Sodium Bicarbonate (Buffered Lidocaine 1%) 3 ml STK-MED ONCE .ROUTE ; Start 09/19/17 at 14:25; Stop 09/19/17 at 14:26; Status DC Vitamin D (Vitamin D3) 1,000 unit DAILY PO ; Start 09/20/17 at 09:00 Paroxetine HCl (Paxil) 20 mg DAILY PO Last administered on 09/19/17at 17:18; Start 09/19/17 at 16:00 Multivitamins (Thera M Plus) 1 tab DAILY PO ; Start 09/20/17 at 09:00 Metoprolol Tartrate (Lopressor) 25 mg BID PO ; Start 09/19/17 at 21:00 Atorvastatin Calcium (Lipitor) 40 mg QHS PO ; Start 09/19/17 at 21:00 Acetaminophen (Tylenol) 650 mg PRN Q6HRS PRN PO MILD PAIN / TEMP; Start at 15:15 Diltiazem HCl (Cardizem Cd) 300 mg DAILY PO ; Start 09/20/17 at 09:00 Diltiazem HCl (Cardizem) 60 mg 1X ONCE PO Last administered on 09/19/17at 17:17 ; Start 09/19/17 at 17:30; Stop 09/19/17 at 17:31; Status DC Active Scripts Active Thera-M Tablet (Multivits,Ca,Minerals/Iron/Fa) 1 Each Tablet 1 Tab PO DAILY 30 Days Hydrocodone-Apap 5-325 (Hydrocodone Bit/Acetaminophen) 1 Each Tablet 1 Tab PO PRN Q6HRS PRN Metoprolol Tartrate 25 Mg Tablet 25 Mg PO BID 30 Days Diltiazem 24Hr Cd (Diltiazem HCl) 240 Mg Cap.er.24h 240 Mg PO DAILY 30 Days Vitamin D (Cholecalciferol (Vitamin D3)) 1,000 Unit Tablet 1,000 Unit PO DAILY 30 Days Reported Senokot (Sennosides) 8.6 Mg Tablet 1 Tab PO PRN BID PRN Zofran (Ondansetron Hcl) 4 Mg Tablet 4 Mg PO Q6HRS PRN Crestor (Rosuvastatin Calcium) 5 Mg Tablet 20 PO HS Paroxetine Hcl 40 Mg Tablet 20 Mg PO DAILY Allergies Allergies: Coded Allergies: Sulfa (Sulfonamide Antibiotics) (Verified Allergy, Severe, facial swelling and rash, 08/23/17) Physical Exam General: Alert, Oriented X3, Cooperative HEENT: PERRLA Lungs: Other (patient's with bilateral crackles and decreased breath sounds more on the right than on the left) Heart: Other (regular rate and rhythm S1-S2 1 to 2/6 systolic murmur.No rub heard) Abdomen: Normal bowel sounds, Soft Extremities: Other Vitals VITALS Vital Signs Date Time Temp Pulse Resp B/P (MAP) Pulse Ox O2 Delivery O2 Flow Rate FiO2 09/19/17 18:15 20 97 2.0 09/19/17 18:02 107 123/69 (87) 09/19/17 15:00 98.4 Nasal Cannula 98.4 Labs Labs Laboratory Tests Test 09/19/17 09:20 White Blood Count 9.9 x10^3/uL (4.0-11.0) Red Blood Count 3.73 x10^6/uL (3.50-5.40) Hemoglobin 10.0 g/dL (12.0-15.5) Hematocrit 31.4 % (36.0-47.0) Mean Corpuscular Volume 84 fL (79-100) Mean Corpuscular Hemoglobin 27 pg (25-35) Mean Corpuscular Hemoglobin Concent 32 g/dL (31-37) Red Cell Distribution Width 19.4 % (11.5-14.5) Platelet Count 279 x10^3/uL (140-400) Neutrophils (%) (Auto) 80 % (31-73) Lymphocytes (%) (Auto) 7 % (24-48) Monocytes (%) (Auto) 12 % (0-9) Eosinophils (%) (Auto) 0 % (0-3) Basophils (%) (Auto) 0 % (0-3) Neutrophils # (Auto) 7.9 x10^3uL (1.8-7.7) Lymphocytes # (Auto) 0.7 x10^3/uL (1.0-4.8) Monocytes # (Auto) 1.2 x10^3/uL (0.0-1.1) Eosinophils # (Auto) 0.0 x10^3/uL (0.0-0.7) Basophils # (Auto) 0.0 x10^3/uL (0.0-0.2) Prothrombin Time 16.0 SEC (11.7-14.0) Prothromb Time International Ratio 1.3 (0.8-1.1) Sodium Level 139 mmol/L (136-145) Potassium Level 4.0 mmol/L (3.5-5.1) Chloride Level 104 mmol/L (98-107) Carbon Dioxide Level 29 mmol/L (21-32) Anion Gap 6 (6-14) Blood Urea Nitrogen 17 mg/dL (7-20) Creatinine 0.5 mg/dL (0.6-1.0) Estimated GFR (Cockcroft-Gault) 148.0 BUN/Creatinine Ratio 34 (6-20) Glucose Level 122 mg/dL (70-99) Calcium Level 10.0 mg/dL (8.5-10.1) Magnesium Level 1.9 mg/dL (1.8-2.4) Total Bilirubin 0.5 mg/dL (0.2-1.0) Aspartate Amino Transf (AST/SGOT) 20 U/L (15-37) Alanine Aminotransferase (ALT/SGPT) 22 U/L (14-59) Alkaline Phosphatase 140 U/L (46-116) Creatine Kinase 13 U/L (26-192) Creatine Kinase MB (Mass) < 0.5 ng/mL (0.0-3.6) Creatine Kinase MB Relative Index % (0-4) Troponin I Quantitative < 0.017 ng/mL (0.000-0.055) IG-Sqc-L-Type Natriuretic Peptide 1078 pg/mL (0-124) Total Protein 7.0 g/dL (6.4-8.2) Albumin 2.8 g/dL (3.4-5.0) Albumin/Globulin Ratio 0.7 (1.0-1.7) Thyroid Stimulating Hormone (TSH) 1.439 uIU/mL (0.358-3.74) Free Thyroxine 1.26 ng/dL (0.76-1.46) Laboratory Tests Test 09/19/17 09:20 White Blood Count 9.9 x10^3/uL (4.0-11.0) Red Blood Count 3.73 x10^6/uL (3.50-5.40) Hemoglobin 10.0 g/dL (12.0-15.5) Hematocrit 31.4 % (36.0-47.0) Mean Corpuscular Volume 84 fL (79-100) Mean Corpuscular Hemoglobin 27 pg (25-35) Mean Corpuscular Hemoglobin Concent 32 g/dL (31-37) Red Cell Distribution Width 19.4 % (11.5-14.5) Platelet Count 279 x10^3/uL (140-400) Neutrophils (%) (Auto) 80 % (31-73) Lymphocytes (%) (Auto) 7 % (24-48) Monocytes (%) (Auto) 12 % (0-9) Eosinophils (%) (Auto) 0 % (0-3) Basophils (%) (Auto) 0 % (0-3) Neutrophils # (Auto) 7.9 x10^3uL (1.8-7.7) Lymphocytes # (Auto) 0.7 x10^3/uL (1.0-4.8) Monocytes # (Auto) 1.2 x10^3/uL (0.0-1.1) Eosinophils # (Auto) 0.0 x10^3/uL (0.0-0.7) Basophils # (Auto) 0.0 x10^3/uL (0.0-0.2) Prothrombin Time 16.0 SEC (11.7-14.0) Prothromb Time International Ratio 1.3 (0.8-1.1) Sodium Level 139 mmol/L (136-145) Potassium Level 4.0 mmol/L (3.5-5.1) Chloride Level 104 mmol/L (98-107) Carbon Dioxide Level 29 mmol/L (21-32) Anion Gap 6 (6-14) Blood Urea Nitrogen 17 mg/dL (7-20) Creatinine 0.5 mg/dL (0.6-1.0) Estimated GFR (Cockcroft-Gault) 148.0 BUN/Creatinine Ratio 34 (6-20) Glucose Level 122 mg/dL (70-99) Calcium Level 10.0 mg/dL (8.5-10.1) Magnesium Level 1.9 mg/dL (1.8-2.4) Total Bilirubin 0.5 mg/dL (0.2-1.0) Aspartate Amino Transf (AST/SGOT) 20 U/L (15-37) Alanine Aminotransferase (ALT/SGPT) 22 U/L (14-59) Alkaline Phosphatase 140 U/L (46-116) Creatine Kinase 13 U/L (26-192) Creatine Kinase MB (Mass) < 0.5 ng/mL (0.0-3.6) Creatine Kinase MB Relative Index % (0-4) Troponin I Quantitative < 0.017 ng/mL (0.000-0.055) WU-Tpp-N-Type Natriuretic Peptide 1078 pg/mL (0-124) Total Protein 7.0 g/dL (6.4-8.2) Albumin 2.8 g/dL (3.4-5.0) Albumin/Globulin Ratio 0.7 (1.0-1.7) Thyroid Stimulating Hormone (TSH) 1.439 uIU/mL (0.358-3.74) Free Thyroxine 1.26 ng/dL (0.76-1.46) Assessment/Plan Assessment/Plan 1+ edema this patient with stage IV lung cancer that is having recurrent pleural effusions requiring multiple thoracentesis came in in atrial flutter with a rapid ventricular response. The patient has converted to sinus rhythm. I would increase her by mouth Cardizem to 300 mg a day and if she is stable in the morning I would proceed with the thoracentesis and then possible discharge. If the patient deteriorates any further we may need to consider hospice care. Thank you very much for asking me to participate in the care of this patient JEFERSON STEINER MD Sep 19, 2017 18:26
[2017-09-19] MEDS: ATORVASTATIN CALCIUM 40 MG TABLET. PO SCH (20:25)
[2017-09-19] MEDS: METOPROLOL TART IMMED RELEASE 25 MG TABLET. PO SCH (20:26)
[2017-09-19] MEDS: SENNOSIDES 8.6 MG TABLET PO PRN (20:57)
[2017-09-19] MEDS ORDERED: fentaNYL PF VIAL 100 MCG/2 ML VIAL IV PRN ×2 (23:15)
[2017-09-19] MEDS: ONDANSETRON PF 4 MG/2 ML VIAL. IV PRN (23:17)
[2017-09-20] VITALS (10 sets, daily range): BP systolic 94–146; BP diastolic 56–76
[2017-09-20] MEDS: MULTIVITAMIN with MINERAL TABLET. PO SCH (08:17)
[2017-09-20] MEDS: PARoxetine 20 MG TABLET PO SCH (08:17)
[2017-09-20] MEDS: CHOLECALCIFEROL (VITAMIN D3) 1,000 UNIT TABLET PO SCH (08:17)
[2017-09-20] MEDS: METOPROLOL TART IMMED RELEASE 25 MG TABLET. PO SCH ×2 (08:20→20:56)
[2017-09-20 09:50] LABS: CALCIUM 9.9 mg/dL (8.5-10.1); CREATININE 0.5 mg/dL (0.6-1.0); MAGNESIUM 1.7 mg/dL (1.8-2.4); POTASSIUM 3.7 mmol/L (3.5-5.1)
--- NOTE | 2017-09-20 10:38 | PDOC ---
Pulmonary Progress Note. 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 Was admitted yesterday with tachycardia and shortness of breath with anticipated thoracentesis today (pending). At present she is resting comfortably on 2 L O2. She is on oxygen chronically. She has some chest pain (not new). Ventilator Settings: ABG Laboratory Tests Test 09/20/17 08:40 Sodium Level 140 mmol/L (136-145) Potassium Level 3.7 mmol/L (3.5-5.1) Chloride Level 102 mmol/L (98-107) Carbon Dioxide Level 31 mmol/L (21-32) Anion Gap 7 (6-14) Blood Urea Nitrogen 16 mg/dL (7-20) Creatinine 0.5 mg/dL (0.6-1.0) Estimated GFR (Cockcroft-Gault) 148.0 Glucose Level 129 mg/dL (70-99) Calcium Level 9.9 mg/dL (8.5-10.1) Magnesium Level 1.7 mg/dL (1.8-2.4) Current Medications: Current Medications: Current Medications Medications (Trade) Dose Ordered Sig/Priya Start Time Stop Time Status Last Admin Dose Admin Acetaminophen (Tylenol) 650 mg PRN Q6HRS PRN 09/19/17 15:15 Acetaminophen/ Hydrocodone Bitart (Lortab 5/325) 1 tab PRN Q4HRS PRN 09/19/17 10:45 09/19/17 22:17 1 TAB Atorvastatin Calcium (Lipitor) 40 mg QHS 09/19/17 21:00 09/19/17 20:25 40 MG Diltiazem HCl (Cardizem 24hr Cd) 300 mg DAILY 09/20/17 09:00 09/20/17 08:21 300 MG Diltiazem HCl (Cardizem) 60 mg 1X ONCE 09/19/17 17:30 09/19/17 17:31 DC 09/19/17 17:17 60 MG Diltiazem HCl 125 mg/Dextrose 125 ml @ 5 mls/hr CONT PRN 09/19/17 09:30 09/19/17 09:39 5 MLS/HR Fentanyl Citrate (Fentanyl 2ml Vial) 50 mcg PRN Q4HRS PRN 09/19/17 23:15 Lidocaine/Sodium Bicarbonate (Buffered Lidocaine 1%) 3 ml STK-MED ONCE 09/19/17 14:25 09/19/17 14:26 DC Metoprolol Tartrate (Lopressor) 25 mg BID 09/19/17 21:00 09/20/17 08:20 25 MG Multivitamins (Thera M Plus) 1 tab DAILY 09/20/17 09:00 09/20/17 08:17 1 TAB Ondansetron HCl (Zofran) 4 mg PRN Q6HRS PRN 09/19/17 23:15 09/19/17 23:17 4 MG Paroxetine HCl (Paxil) 20 mg DAILY 09/19/17 16:00 09/20/17 08:17 20 MG Sennosides (Senna) 8.6 mg PRN BID PRN 09/19/17 20:45 09/19/17 20:57 8.6 MG Sodium Chloride 1,000 ml @ 100 mls/hr Q10H 09/19/17 09:18 09/19/17 19:17 DC 09/19/17 09:45 100 MLS/HR Vitamin D (Vitamin D3) 1,000 unit DAILY 09/20/17 09:00 09/20/17 08:17 1,000 UNIT ROS: ROS: A 12 point ROS was obtained and positive for chest pain. Otherwise the 12 point ROS was negative. Physical Exam: Vital Signs: Vital Signs Date Time Temp Pulse Resp B/P (MAP) Pulse Ox O2 Delivery O2 Flow Rate FiO2 09/19/17 09:18 98.4 162 24 117/74 (88) 2 Nasal Cannula 98.4 09/19/17 09:22 2.0 Vital Signs Date Time Temp Pulse Resp B/P (MAP) Pulse Ox O2 Delivery O2 Flow Rate FiO2 09/20/17 08:21 64 146/76 09/20/17 08:00 Nasal Cannula 2.0 09/20/17 07:00 98.6 20 97 98.6 Physical Exam: The HEENT exam was unremarkable. There was diminished breath sounds in the right hemithorax. The cardiovascular exam revealed an ifregular rate and rhythm without murmur or gallop. The abdomen was soft without masses The extremities did not have any cyanosis, clubbing or edema. The patient was alert , oriented and appropriate. Cranial nerves, motor and coordination were grossly intact. There were no hot, swollen or deformed joints. There was no rash. Images: Images: CXR 09/19 showed right lung mass and effusion. The CV silhouette was enlarged. Impression & Plan: Impression & Plan: 1. 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 2. atrial fibrillation Plan: 1.Therapeutic thoracentesis today. If that goes well she can be discharged from pulmonary perspective. 2. Outpatient follow up with Dr. Roque after discharge MARIFER MCGRATH MD Sep 20, 2017 10:38
[2017-09-20] MEDS: HYDROcodone/APAP 5/325MG 1 TAB TABLET PO PRN ×2 (11:10→20:56)
[2017-09-20] MEDS: ONDANSETRON PF 4 MG/2 ML VIAL. IV PRN (11:12)
[2017-09-20] MEDS ORDERED: MAGNESIUM SULFATE 2GM 50 ML IV ONE (12:00)
[2017-09-20] MEDS ORDERED: LIDOCAINE WITH 8.4% SOD BICARB 3 ML DISP.SYRIN. ONE (12:14)
[2017-09-20] MEDS ORDERED: LIDOCAINE WITH 8.4% SOD BICARB 3 ML DISP.SYRIN. INJ ONE (12:30)
--- NOTE | 2017-09-20 13:17 | RAD ---
Ultrasound-guided right-sided thoracentesis 09/20/2017 1:12 PM Indication: Lung Cancer, Recurrent Right Pleural Effusion Procedure: Informed consent was obtained. A timeout procedure was performed. Sonographic evaluation of the right chest was performed demonstrating moderate pleural effusion. The right posterior chest was prepped and draped in sterile fashion. 1% lidocaine without epinephrine was administered for local anesthesia. Real-time ultrasonographic guidance was used in passing a 5 Georgian Celletraeh catheter into the right pleural space. 0.7 L of pleural fluid was aspirated. The catheter was removed and pressure held to achieve hemostasis. A sterile dressing was applied. No immediate complications were identified. The patient tolerated the procedure well. Impression: Right sided ultrasound-guided thoracentesis
--- NOTE | 2017-09-20 14:37 | RAD ---
Exam: AP portable chest History: Status post thoracentesis. Comparison: September 19, 2017. Findings: Cardiac silhouette and calcified right lung mass are unchanged. There is slightly increased density in the retrocardiac region, may be worsening atelectasis. There is slightly improved aeration of the right lung field, compatible with interval thoracentesis. A majority of the right hemithorax is opacified. No pneumothorax is seen. Impression: 1. Mild improved aeration of the right lung field, compatible with interval thoracentesis. No pneumothorax is identified. Electronically signed by: Feliciano Gomez MD (09/20/2017 2:33 PM) [place] [id number]
--- NOTE | 2017-09-20 16:34 | PDOC ---
PROGRESS NOTES Subjective Subjective seen earlier today. converted to nsr and started on higher dose of diltiazem. magnesium low. potassium 3.7. feels the same.. not short of breath at rest. Objective Objective Vital Signs Date Time Temp Pulse Resp B/P (MAP) Pulse Ox O2 Delivery O2 Flow Rate FiO2 09/20/17 15:00 98.1 89 20 113/64 (80) 94 Nasal Cannula 2.0 98.1 Intake and Output 09/20/17 06:59 Intake Total 1322 ml Output Total 300 ml Balance 1022 ml Intake Oral 320 ml IV Total 1002 ml Output Urine Total 300 ml Physical Exam Abdomen: Soft Heart: Regular rate, Normal S1, Normal S2 Extremities: No edema General: Alert HEENT: Atraumatic Lungs: Other (clear on left and decrease breath sounds on right) Neuro: Normal speech Psych/Mental Status: Mental status NL Skin: No rashes Assessment Assessment Problems1. Paroxysmal atrial flutter with a rapid ventricular response, converted to normal sinus rhythm 2. Right pleural effusion, which is recurrent. 3. 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 4. Anemia of chronic disease. 5. Moderate protein calorie malnutrition. 6. Hyperlipidemia. hypomagnesemia Medical Problems: (1) Atrial flutter with rapid ventricular response Status: Acute Plan Plan of Care thoracentesis today kcl today iv magnesium continue telemetry continue diltiazem lab tomorrow Comment Review of Relevant I have reviewed the following items edmundo (where applicable) has been applied. Labs Laboratory Tests Test 09/19/17 09:20 09/20/17 08:40 White Blood Count 9.9 x10^3/uL (4.0-11.0) Red Blood Count 3.73 x10^6/uL (3.50-5.40) Hemoglobin 10.0 g/dL (12.0-15.5) Hematocrit 31.4 % (36.0-47.0) Mean Corpuscular Volume 84 fL (79-100) Mean Corpuscular Hemoglobin 27 pg (25-35) Mean Corpuscular Hemoglobin Concent 32 g/dL (31-37) Red Cell Distribution Width 19.4 % (11.5-14.5) Platelet Count 279 x10^3/uL (140-400) Neutrophils (%) (Auto) 80 % (31-73) Lymphocytes (%) (Auto) 7 % (24-48) Monocytes (%) (Auto) 12 % (0-9) Eosinophils (%) (Auto) 0 % (0-3) Basophils (%) (Auto) 0 % (0-3) Neutrophils # (Auto) 7.9 x10^3uL (1.8-7.7) Lymphocytes # (Auto) 0.7 x10^3/uL (1.0-4.8) Monocytes # (Auto) 1.2 x10^3/uL (0.0-1.1) Eosinophils # (Auto) 0.0 x10^3/uL (0.0-0.7) Basophils # (Auto) 0.0 x10^3/uL (0.0-0.2) Prothrombin Time 16.0 SEC (11.7-14.0) Prothromb Time International Ratio 1.3 (0.8-1.1) Sodium Level 139 mmol/L (136-145) 140 mmol/L (136-145) Potassium Level 4.0 mmol/L (3.5-5.1) 3.7 mmol/L (3.5-5.1) Chloride Level 104 mmol/L (98-107) 102 mmol/L (98-107) Carbon Dioxide Level 29 mmol/L (21-32) 31 mmol/L (21-32) Anion Gap 6 (6-14) 7 (6-14) Blood Urea Nitrogen 17 mg/dL (7-20) 16 mg/dL (7-20) Creatinine 0.5 mg/dL (0.6-1.0) 0.5 mg/dL (0.6-1.0) Estimated GFR (Cockcroft-Gault) 148.0 148.0 BUN/Creatinine Ratio 34 (6-20) Glucose Level 122 mg/dL (70-99) 129 mg/dL (70-99) Calcium Level 10.0 mg/dL (8.5-10.1) 9.9 mg/dL (8.5-10.1) Magnesium Level 1.9 mg/dL (1.8-2.4) 1.7 mg/dL (1.8-2.4) Total Bilirubin 0.5 mg/dL (0.2-1.0) Aspartate Amino Transf (AST/SGOT) 20 U/L (15-37) Alanine Aminotransferase (ALT/SGPT) 22 U/L (14-59) Alkaline Phosphatase 140 U/L (46-116) Creatine Kinase 13 U/L (26-192) Creatine Kinase MB (Mass) < 0.5 ng/mL (0.0-3.6) Creatine Kinase MB Relative Index % (0-4) Troponin I Quantitative < 0.017 ng/mL (0.000-0.055) UL-Tyk-S-Type Natriuretic Peptide 1078 pg/mL (0-124) Total Protein 7.0 g/dL (6.4-8.2) Albumin 2.8 g/dL (3.4-5.0) Albumin/Globulin Ratio 0.7 (1.0-1.7) Thyroid Stimulating Hormone (TSH) 1.439 uIU/mL (0.358-3.74) Free Thyroxine 1.26 ng/dL (0.76-1.46) Laboratory Tests Test 09/20/17 08:40 Sodium Level 140 mmol/L (136-145) Potassium Level 3.7 mmol/L (3.5-5.1) Chloride Level 102 mmol/L (98-107) Carbon Dioxide Level 31 mmol/L (21-32) Anion Gap 7 (6-14) Blood Urea Nitrogen 16 mg/dL (7-20) Creatinine 0.5 mg/dL (0.6-1.0) Estimated GFR (Cockcroft-Gault) 148.0 Glucose Level 129 mg/dL (70-99) Calcium Level 9.9 mg/dL (8.5-10.1) Magnesium Level 1.7 mg/dL (1.8-2.4) Medications Current Medications Diltiazem HCl (Cardizem) 20 mg 1X ONCE IVP Last administered on 09/19/17at 09: 39; Start 09/19/17 at 09:45; Stop 09/19/17 at 09:46; Status DC Sodium Chloride 1,000 ml @ 100 mls/hr Q10H IV Last administered on 09/19/17at 09:45; Start 09/19/17 at 09:18; Stop 09/19/17 at 19:17; Status DC Diltiazem HCl 125 mg/Dextrose 125 ml @ 5 mls/hr CONT PRN IV SEE I/O RECORD Last administered on 09/19/17 09:39; Start 09/19/17 at 09:30; Stop 09/20/17 at 13:38; Status DC Acetaminophen/ Hydrocodone Bitart (Lortab 5/325) 1 tab PRN Q4HRS PRN PO MODERATE - SEVERE PAIN Last administered on 09/20/17 11:10; Start 09/19/17 at 10:45 Lidocaine/Sodium Bicarbonate (Buffered Lidocaine 1%) 3 ml STK-MED ONCE .ROUTE ; Start 09/19/17 at 14:25; Stop 09/19/17 at 14:26; Status DC Vitamin D (Vitamin D3) 1,000 unit DAILY PO Last administered on 09/20/17 08:17 ; Start 09/20/17 at 09:00 Paroxetine HCl (Paxil) 20 mg DAILY PO Last administered on 09/20/17 08:17; Start 09/19/17 at 16:00 Multivitamins (Thera M Plus) 1 tab DAILY PO Last administered on 09/20/17 08: 17; Start 09/20/17 at 09:00 Metoprolol Tartrate (Lopressor) 25 mg BID PO Last administered on 09/20/17 08: 20; Start 09/19/17 at 21:00 Atorvastatin Calcium (Lipitor) 40 mg QHS PO Last administered on 09/19/17 20: 25; Start 09/19/17 at 21:00 Acetaminophen (Tylenol) 650 mg PRN Q6HRS PRN PO MILD PAIN / TEMP; Start at 15:15 Diltiazem HCl (Cardizem 24hr Cd) 300 mg DAILY PO Last administered on 08:21; Start 09/20/17 at 09:00 Diltiazem HCl (Cardizem) 60 mg 1X ONCE PO Last administered on 09/19/17 17:17 ; Start 09/19/17 at 17:30; Stop 09/19/17 at 17:31; Status DC Sennosides (Senna) 8.6 mg PRN BID PRN PO CONSTIPATION Last administered on 09/19 20:57; Start 09/19/17 at 20:45 Fentanyl Citrate (Fentanyl 2ml Vial) 25 mcg PRN Q4HRS PRN IV PAIN Last administered on 8/14/18at 23:17; Start 09/19/17 at 23:15 Fentanyl Citrate (Fentanyl 2ml Vial) 50 mcg PRN Q4HRS PRN IV PAIN; Start at 23:15 Ondansetron HCl (Zofran) 4 mg PRN Q6HRS PRN IV NAUSEA/VOMITING Last administered on 09/20/17at 11:12; Start 09/19/17 at 23:15 Magnesium Sulfate 50 ml @ 25 mls/hr 1X ONCE IV Last administered on 09/20/17at 13:01; Start 09/20/17 at 12:00; Stop 09/20/17 at 13:59; Status DC Lidocaine/Sodium Bicarbonate (Buffered Lidocaine 1%) 3 ml STK-MED ONCE .ROUTE ; Start 09/20/17 at 12:14; Stop 09/20/17 at 12:16; Status DC Lidocaine/Sodium Bicarbonate (Buffered Lidocaine 1%) 3 ml 1X ONCE INJ Last administered on 09/20/17at 12:49; Start 09/20/17 at 12:30; Stop 09/20/17 at 12:31 ; Status DC Active Scripts Active Thera-M Tablet (Multivits,Ca,Minerals/Iron/Fa) 1 Each Tablet 1 Tab PO DAILY 30 Days Hydrocodone-Apap 5-325 (Hydrocodone Bit/Acetaminophen) 1 Each Tablet 1 Tab PO PRN Q6HRS PRN Metoprolol Tartrate 25 Mg Tablet 25 Mg PO BID 30 Days Diltiazem 24Hr Cd (Diltiazem HCl) 240 Mg Cap.er.24h 240 Mg PO DAILY 30 Days Vitamin D (Cholecalciferol (Vitamin D3)) 1,000 Unit Tablet 1,000 Unit PO DAILY 30 Days Reported Senokot (Sennosides) 8.6 Mg Tablet 1 Tab PO PRN BID PRN Zofran (Ondansetron Hcl) 4 Mg Tablet 4 Mg PO Q6HRS PRN Crestor (Rosuvastatin Calcium) 5 Mg Tablet 20 PO HS Paroxetine Hcl 40 Mg Tablet 20 Mg PO DAILY Vitals/I & O Vital Sign - Last 24 Hours 09/19/17 09/19/17 09/19/17 09/19/17 17:00 17:17 17:18 17:29 Pulse 102 86 101 Resp 20 B/P (MAP) 149/52 (84) 109/82 141/68 (92) Pulse Ox 97 O2 Flow Rate 2.0 09/19/17 09/19/17 09/19/17 09/19/17 18:00 18:02 18:15 18:24 Pulse 107 107 Resp 20 B/P (MAP) 123/69 (87) 123/69 (87) O2 Delivery Nasal Cannula O2 Flow Rate 2.0 09/19/17 09/19/17 09/19/17 09/19/17 18:34 18:57 19:10 20:00 Temp 98.3 98.3 Pulse 88 105 94 Resp 29 B/P (MAP) 129/70 (89) 134/75 (94) 134/75 (94) Pulse Ox 91 O2 Delivery Nasal Cannula Nasal Cannula O2 Flow Rate 2.0 2.0 09/19/17 09/19/17 09/19/17 09/19/17 20:26 22:17 23:10 23:17 Temp 98.3 98.3 Pulse 94 76 Resp 29 B/P (MAP) 150/78 127/58 (81) Pulse Ox 91 91 91 O2 Delivery Nasal Cannula Nasal Cannula Nasal Cannula O2 Flow Rate 2.0 2.0 2.0 09/20/17 09/20/17 09/20/17 09/20/17 00:00 03:10 07:00 08:00 Temp 98.1 98.6 98.1 98.6 Pulse 95 64 Resp 38 20 B/P (MAP) 132/68 (89) 146/76 (99) Pulse Ox 91 93 97 O2 Delivery Nasal Cannula Nasal Cannula Nasal Cannula Nasal Cannula O2 Flow Rate 2.0 2.0 2.0 2.0 09/20/17 09/20/17 09/20/17 09/20/17 08:20 08:21 11:00 11:10 Temp 98.7 98.7 Pulse 64 64 92 Resp 20 B/P (MAP) 146/76 146/76 131/65 (87) Pulse Ox 94 97 O2 Delivery Nasal Cannula Nasal Cannula O2 Flow Rate 2.0 09/20/17 09/20/17 09/20/17 09/20/17 12:33 12:38 12:43 12:45 Pulse 105 93 96 80 Resp 20 20 24 24 B/P (MAP) 113/57 (75) 103/56 (72) 101/57 (72) 133/64 (87) Pulse Ox 97 99 95 94 O2 Delivery Nasal Cannula Nasal Cannula Nasal Cannula Nasal Cannula O2 Flow Rate 2.0 2.0 2.0 2.0 09/20/17 09/20/17 14:02 15:00 Temp 98.1 98.1 Pulse 89 Resp 20 B/P (MAP) 113/64 (80) Pulse Ox 94 94 O2 Delivery Nasal Cannula Nasal Cannula O2 Flow Rate 2.0 2.0 Intake and Output 09/19/17 09/19/17 09/20/17 14:59 22:59 06:59 Intake Total 60 ml 1062 ml 200 ml Output Total 300 ml 0 ml Balance 60 ml 762 ml 200 ml SHANTHI VARGAS MD Sep 20, 2017 16:34
[2017-09-20] MEDS ORDERED: POTASSIUM CHLORIDE 20 MEQ TABLET.ER. PO ONE (16:45)
--- NOTE | 2017-09-20 18:05 | PDOC ---
PROGRESS NOTES Subjective Subjective Patient feels better now. Breathing easier. She had a thoracentesis done earlier. Objective Objective Vital Signs Date Time Temp Pulse Resp B/P (MAP) Pulse Ox O2 Delivery O2 Flow Rate FiO2 09/20/17 15:00 98.1 89 20 113/64 (80) 94 Nasal Cannula 2.0 98.1 Intake and Output 09/20/17 07:00 Intake Total 1322 ml Output Total 300 ml Balance 1022 ml Intake Oral 320 ml IV Total 1002 ml Output Urine Total 300 ml Physical Exam Physical Exam Moving air better. Otherwise no changes in cardiac exam Assessment Assessment Patient continues in sinus rhythm. Seems to be doing better after thoracentesis. I agree with present plan. Comment Review of Relevant I have reviewed the following items edmundo (where applicable) has been applied. Labs Laboratory Tests Test 09/19/17 09:20 09/20/17 08:40 White Blood Count 9.9 x10^3/uL (4.0-11.0) Red Blood Count 3.73 x10^6/uL (3.50-5.40) Hemoglobin 10.0 g/dL (12.0-15.5) Hematocrit 31.4 % (36.0-47.0) Mean Corpuscular Volume 84 fL (79-100) Mean Corpuscular Hemoglobin 27 pg (25-35) Mean Corpuscular Hemoglobin Concent 32 g/dL (31-37) Red Cell Distribution Width 19.4 % (11.5-14.5) Platelet Count 279 x10^3/uL (140-400) Neutrophils (%) (Auto) 80 % (31-73) Lymphocytes (%) (Auto) 7 % (24-48) Monocytes (%) (Auto) 12 % (0-9) Eosinophils (%) (Auto) 0 % (0-3) Basophils (%) (Auto) 0 % (0-3) Neutrophils # (Auto) 7.9 x10^3uL (1.8-7.7) Lymphocytes # (Auto) 0.7 x10^3/uL (1.0-4.8) Monocytes # (Auto) 1.2 x10^3/uL (0.0-1.1) Eosinophils # (Auto) 0.0 x10^3/uL (0.0-0.7) Basophils # (Auto) 0.0 x10^3/uL (0.0-0.2) Prothrombin Time 16.0 SEC (11.7-14.0) Prothromb Time International Ratio 1.3 (0.8-1.1) Sodium Level 139 mmol/L (136-145) 140 mmol/L (136-145) Potassium Level 4.0 mmol/L (3.5-5.1) 3.7 mmol/L (3.5-5.1) Chloride Level 104 mmol/L (98-107) 102 mmol/L (98-107) Carbon Dioxide Level 29 mmol/L (21-32) 31 mmol/L (21-32) Anion Gap 6 (6-14) 7 (6-14) Blood Urea Nitrogen 17 mg/dL (7-20) 16 mg/dL (7-20) Creatinine 0.5 mg/dL (0.6-1.0) 0.5 mg/dL (0.6-1.0) Estimated GFR (Cockcroft-Gault) 148.0 148.0 BUN/Creatinine Ratio 34 (6-20) Glucose Level 122 mg/dL (70-99) 129 mg/dL (70-99) Calcium Level 10.0 mg/dL (8.5-10.1) 9.9 mg/dL (8.5-10.1) Magnesium Level 1.9 mg/dL (1.8-2.4) 1.7 mg/dL (1.8-2.4) Total Bilirubin 0.5 mg/dL (0.2-1.0) Aspartate Amino Transf (AST/SGOT) 20 U/L (15-37) Alanine Aminotransferase (ALT/SGPT) 22 U/L (14-59) Alkaline Phosphatase 140 U/L (46-116) Creatine Kinase 13 U/L (26-192) Creatine Kinase MB (Mass) < 0.5 ng/mL (0.0-3.6) Creatine Kinase MB Relative Index % (0-4) Troponin I Quantitative < 0.017 ng/mL (0.000-0.055) MB-Cux-C-Type Natriuretic Peptide 1078 pg/mL (0-124) Total Protein 7.0 g/dL (6.4-8.2) Albumin 2.8 g/dL (3.4-5.0) Albumin/Globulin Ratio 0.7 (1.0-1.7) Thyroid Stimulating Hormone (TSH) 1.439 uIU/mL (0.358-3.74) Free Thyroxine 1.26 ng/dL (0.76-1.46) Laboratory Tests Test 09/20/17 08:40 Sodium Level 140 mmol/L (136-145) Potassium Level 3.7 mmol/L (3.5-5.1) Chloride Level 102 mmol/L (98-107) Carbon Dioxide Level 31 mmol/L (21-32) Anion Gap 7 (6-14) Blood Urea Nitrogen 16 mg/dL (7-20) Creatinine 0.5 mg/dL (0.6-1.0) Estimated GFR (Cockcroft-Gault) 148.0 Glucose Level 129 mg/dL (70-99) Calcium Level 9.9 mg/dL (8.5-10.1) Magnesium Level 1.7 mg/dL (1.8-2.4) Medications Current Medications Diltiazem HCl (Cardizem) 20 mg 1X ONCE IVP Last administered on 09/19/17at 09: 39; Start 09/19/17 at 09:45; Stop 09/19/17 at 09:46; Status DC Sodium Chloride 1,000 ml @ 100 mls/hr Q10H IV Last administered on 09/19/17at 09:45; Start 09/19/17 at 09:18; Stop 09/19/17 at 19:17; Status DC Diltiazem HCl 125 mg/Dextrose 125 ml @ 5 mls/hr CONT PRN IV SEE I/O RECORD Last administered on 09/19/17at 09:39; Start 09/19/17 at 09:30; Stop 09/20/17 at 13:38; Status DC Acetaminophen/ Hydrocodone Bitart (Lortab 5/325) 1 tab PRN Q4HRS PRN PO MODERATE - SEVERE PAIN Last administered on 09/20/17at 11:10; Start 09/19/17 at 10:45 Lidocaine/Sodium Bicarbonate (Buffered Lidocaine 1%) 3 ml STK-MED ONCE .ROUTE ; Start 09/19/17 at 14:25; Stop 09/19/17 at 14:26; Status DC Vitamin D (Vitamin D3) 1,000 unit DAILY PO Last administered on 09/20/17at 08:17 ; Start 09/20/17 at 09:00 Paroxetine HCl (Paxil) 20 mg DAILY PO Last administered on 09/20/17 08:17; Start 09/19/17 at 16:00 Multivitamins (Thera M Plus) 1 tab DAILY PO Last administered on 09/20/17 08: 17; Start 09/20/17 at 09:00 Metoprolol Tartrate (Lopressor) 25 mg BID PO Last administered on 09/20/17 08: 20; Start 09/19/17 at 21:00 Atorvastatin Calcium (Lipitor) 40 mg QHS PO Last administered on 09/19/17 20: 25; Start 09/19/17 at 21:00 Acetaminophen (Tylenol) 650 mg PRN Q6HRS PRN PO MILD PAIN / TEMP; Start at 15:15 Diltiazem HCl (Cardizem 24hr Cd) 300 mg DAILY PO Last administered on 08:21; Start 09/20/17 at 09:00 Diltiazem HCl (Cardizem) 60 mg 1X ONCE PO Last administered on 09/19/17 17:17 ; Start 09/19/17 at 17:30; Stop 09/19/17 at 17:31; Status DC Sennosides (Senna) 8.6 mg PRN BID PRN PO CONSTIPATION Last administered on 09/19at 20:57; Start 09/19/17 at 20:45 Fentanyl Citrate (Fentanyl 2ml Vial) 25 mcg PRN Q4HRS PRN IV PAIN Last administered on 09/19/17at 23:17; Start 09/19/17 at 23:15 Fentanyl Citrate (Fentanyl 2ml Vial) 50 mcg PRN Q4HRS PRN IV PAIN; Start at 23:15 Ondansetron HCl (Zofran) 4 mg PRN Q6HRS PRN IV NAUSEA/VOMITING Last administered on 09/20/17at 11:12; Start 09/19/17 at 23:15 Magnesium Sulfate 50 ml @ 25 mls/hr 1X ONCE IV Last administered on 09/20/17at 13:01; Start 09/20/17 at 12:00; Stop 09/20/17 at 13:59; Status DC Lidocaine/Sodium Bicarbonate (Buffered Lidocaine 1%) 3 ml STK-MED ONCE .ROUTE ; Start 09/20/17 at 12:14; Stop 09/20/17 at 12:16; Status DC Lidocaine/Sodium Bicarbonate (Buffered Lidocaine 1%) 3 ml 1X ONCE INJ Last administered on 09/20/17at 12:49; Start 09/20/17 at 12:30; Stop 09/20/17 at 12:31 ; Status DC Potassium Chloride (Klor-Con) 20 meq 1X ONCE PO Last administered on at 16:59; Start 09/20/17 at 16:45; Stop 09/20/17 at 16:46; Status DC Active Scripts Active Thera-M Tablet (Multivits,Ca,Minerals/Iron/Fa) 1 Each Tablet 1 Tab PO DAILY 30 Days Hydrocodone-Apap 5-325 (Hydrocodone Bit/Acetaminophen) 1 Each Tablet 1 Tab PO PRN Q6HRS PRN Metoprolol Tartrate 25 Mg Tablet 25 Mg PO BID 30 Days Diltiazem 24Hr Cd (Diltiazem HCl) 240 Mg Cap.er.24h 240 Mg PO DAILY 30 Days Vitamin D (Cholecalciferol (Vitamin D3)) 1,000 Unit Tablet 1,000 Unit PO DAILY 30 Days Reported Senokot (Sennosides) 8.6 Mg Tablet 1 Tab PO PRN BID PRN Zofran (Ondansetron Hcl) 4 Mg Tablet 4 Mg PO Q6HRS PRN Crestor (Rosuvastatin Calcium) 5 Mg Tablet 20 PO HS Paroxetine Hcl 40 Mg Tablet 20 Mg PO DAILY Vitals/I & O Vital Sign - Last 24 Hours 09/19/17 09/19/17 09/19/17 09/19/17 18:15 18:24 18:34 18:57 Pulse 88 105 Resp 20 B/P (MAP) 129/70 (89) 134/75 (94) O2 Delivery Nasal Cannula O2 Flow Rate 2.0 09/19/17 09/19/17 09/19/17 09/19/17 19:10 20:00 20:26 22:17 Temp 98.3 98.3 Pulse 94 94 Resp 29 B/P (MAP) 134/75 (94) 150/78 Pulse Ox 91 91 O2 Delivery Nasal Cannula Nasal Cannula Nasal Cannula O2 Flow Rate 2.0 2.0 2.0 09/19/17 09/19/17 09/20/17/15/18 23:10 23:17 00:00 03:10 Temp 98.3 98.1 98.3 98.1 Pulse 76 95 Resp 29 38 B/P (MAP) 127/58 (81) 132/68 (89) Pulse Ox 91 91 91 93 O2 Delivery Nasal Cannula Nasal Cannula Nasal Cannula Nasal Cannula O2 Flow Rate 2.0 2.0 2.0 2.0 09/20/17 09/20/17 09/20/17 09/20/17 07:00 08:00 08:20 08:21 Temp 98.6 98.6 Pulse 64 64 64 Resp 20 B/P (MAP) 146/76 (99) 146/76 146/76 Pulse Ox 97 O2 Delivery Nasal Cannula Nasal Cannula O2 Flow Rate 2.0 2.0 09/20/17 09/20/17 09/20/17 09/20/17 11:00 11:10 12:33 12:38 Temp 98.7 98.7 Pulse 92 105 93 Resp 20 20 20 B/P (MAP) 131/65 (87) 113/57 (75) 103/56 (72) Pulse Ox 94 97 97 99 O2 Delivery Nasal Cannula Nasal Cannula Nasal Cannula Nasal Cannula O2 Flow Rate 2.0 2.0 2.0 09/20/17 09/20/17 09/20/17 09/20/17 12:43 12:45 14:02 15:00 Temp 98.1 98.1 Pulse 96 80 89 Resp 24 24 20 B/P (MAP) 101/57 (72) 133/64 (87) 113/64 (80) Pulse Ox 95 94 94 94 O2 Delivery Nasal Cannula Nasal Cannula Nasal Cannula Nasal Cannula O2 Flow Rate 2.0 2.0 2.0 2.0 Intake and Output 09/19/17 09/19/17 09/20/17 15:00 23:00 07:00 Intake Total 60 ml 1062 ml 200 ml Output Total 300 ml 0 ml Balance 60 ml 762 ml 200 ml JEFERSON STEINER MD Sep 20, 2017 18:04
[2017-09-20] MEDS ORDERED: WARFARIN 2.5 MG TABLET. PO SCH (18:41)
[2017-09-20] MEDS: SENNOSIDES 8.6 MG TABLET PO PRN (20:02)
[2017-09-20] MEDS: ATORVASTATIN CALCIUM 40 MG TABLET. PO SCH (20:55)
[2017-09-21 03:28] VITALS: BP 98/59
[2017-09-21 05:22] LABS: CALCIUM 9.1 mg/dL (8.5-10.1); CREATININE 0.4 mg/dL (0.6-1.0); GFR 191.5; MAGNESIUM 1.8 mg/dL (1.8-2.4); POTASSIUM 4.1 mmol/L (3.5-5.1)
[2017-09-21 05:23] LABS: BASO % 0 % (0-3); EOS # 0.2 x10^3/uL (0.0-0.7); EOS % 3 % (0-3); HEMATOCRIT 26.9 % (36.0-47.0); HEMOGLOBIN 8.5 g/dL (12.0-15.5); LYMPH # 0.6 x10^3/uL (1.0-4.8); LYMPH % 7 % (24-48); MEAN CORPUSCULAR HEMOGLOBIN 27 pg (25-35); MEAN CORPUSCULAR HGB CONC 32 g/dL (31-37); MEAN CORPUSCULAR VOLUME 84 fL (79-100); MONO # 0.9 x10^3/uL (0.0-1.1); MONO % 11 % (0-9); NEUT # 6.7 x10^3uL (1.8-7.7); NEUT % 80 % (31-73); PLATELET COUNT 244 x10^3/uL (140-400); RED BLOOD COUNT 3.21 x10^6/uL (3.50-5.40); RED CELL DISTRIBUTION WIDTH 18.7 % (11.5-14.5); WHITE BLOOD COUNT 8.4 x10^3/uL (4.0-11.0)
[2017-09-21 05:48] LABS: PROTHROMBIN TIME PATIENT 16.7 SEC (11.7-14.0)
[2017-09-21 07:00] VITALS: BP 124/69
[2017-09-21] MEDS: PARoxetine 20 MG TABLET PO SCH (08:38)
[2017-09-21] MEDS: MULTIVITAMIN with MINERAL TABLET. PO SCH (08:38)
[2017-09-21] MEDS: CHOLECALCIFEROL (VITAMIN D3) 1,000 UNIT TABLET PO SCH (08:38)
[2017-09-21] MEDS: METOPROLOL TART IMMED RELEASE 25 MG TABLET. PO SCH (08:39)
[2017-09-21] MEDS: SENNOSIDES 8.6 MG TABLET PO PRN (08:41)
[2017-09-21 11:00] VITALS: BP 104/64
[2017-09-21] MEDS: HYDROcodone/APAP 5/325MG 1 TAB TABLET PO PRN (12:33)
--- NOTE | 2017-09-21 12:48 | PDOC ---
PULMONARY PROGRESS NOTES Subjective no soa Vitals Vital Signs Date Time Temp Pulse Resp B/P (MAP) Pulse Ox O2 Delivery O2 Flow Rate FiO2 09/21/17 11:00 98.9 78 16 104/64 (77) 95 Nasal Cannula 2.0 98.9 General: Alert Lungs: Other (decrease right) Cardiovascular: S1, S2 Abdomen: Soft, Non-tender Extremities: Other Labs Laboratory Tests Test 09/20/17 08:40 09/21/17 04:50 Sodium Level 140 mmol/L (136-145) 139 mmol/L (136-145) Potassium Level 3.7 mmol/L (3.5-5.1) 4.1 mmol/L (3.5-5.1) Chloride Level 102 mmol/L (98-107) 104 mmol/L (98-107) Carbon Dioxide Level 31 mmol/L (21-32) 33 mmol/L (21-32) Anion Gap 7 (6-14) 2 (6-14) Blood Urea Nitrogen 16 mg/dL (7-20) 16 mg/dL (7-20) Creatinine 0.5 mg/dL (0.6-1.0) 0.4 mg/dL (0.6-1.0) Estimated GFR (Cockcroft-Gault) 148.0 191.5 Glucose Level 129 mg/dL (70-99) 101 mg/dL (70-99) Calcium Level 9.9 mg/dL (8.5-10.1) 9.1 mg/dL (8.5-10.1) Magnesium Level 1.7 mg/dL (1.8-2.4) 1.8 mg/dL (1.8-2.4) White Blood Count 8.4 x10^3/uL (4.0-11.0) Red Blood Count 3.21 x10^6/uL (3.50-5.40) Hemoglobin 8.5 g/dL (12.0-15.5) Hematocrit 26.9 % (36.0-47.0) Mean Corpuscular Volume 84 fL (79-100) Mean Corpuscular Hemoglobin 27 pg (25-35) Mean Corpuscular Hemoglobin Concent 32 g/dL (31-37) Red Cell Distribution Width 18.7 % (11.5-14.5) Platelet Count 244 x10^3/uL (140-400) Neutrophils (%) (Auto) 80 % (31-73) Lymphocytes (%) (Auto) 7 % (24-48) Monocytes (%) (Auto) 11 % (0-9) Eosinophils (%) (Auto) 3 % (0-3) Basophils (%) (Auto) 0 % (0-3) Neutrophils # (Auto) 6.7 x10^3uL (1.8-7.7) Lymphocytes # (Auto) 0.6 x10^3/uL (1.0-4.8) Monocytes # (Auto) 0.9 x10^3/uL (0.0-1.1) Eosinophils # (Auto) 0.2 x10^3/uL (0.0-0.7) Basophils # (Auto) 0.0 x10^3/uL (0.0-0.2) Prothrombin Time 16.7 SEC (11.7-14.0) Prothromb Time International Ratio 1.4 (0.8-1.1) Laboratory Tests Test 09/21/17 04:50 White Blood Count 8.4 x10^3/uL (4.0-11.0) Red Blood Count 3.21 x10^6/uL (3.50-5.40) Hemoglobin 8.5 g/dL (12.0-15.5) Hematocrit 26.9 % (36.0-47.0) Mean Corpuscular Volume 84 fL (79-100) Mean Corpuscular Hemoglobin 27 pg (25-35) Mean Corpuscular Hemoglobin Concent 32 g/dL (31-37) Red Cell Distribution Width 18.7 % (11.5-14.5) Platelet Count 244 x10^3/uL (140-400) Neutrophils (%) (Auto) 80 % (31-73) Lymphocytes (%) (Auto) 7 % (24-48) Monocytes (%) (Auto) 11 % (0-9) Eosinophils (%) (Auto) 3 % (0-3) Basophils (%) (Auto) 0 % (0-3) Neutrophils # (Auto) 6.7 x10^3uL (1.8-7.7) Lymphocytes # (Auto) 0.6 x10^3/uL (1.0-4.8) Monocytes # (Auto) 0.9 x10^3/uL (0.0-1.1) Eosinophils # (Auto) 0.2 x10^3/uL (0.0-0.7) Basophils # (Auto) 0.0 x10^3/uL (0.0-0.2) Prothrombin Time 16.7 SEC (11.7-14.0) Prothromb Time International Ratio 1.4 (0.8-1.1) Sodium Level 139 mmol/L (136-145) Potassium Level 4.1 mmol/L (3.5-5.1) Chloride Level 104 mmol/L (98-107) Carbon Dioxide Level 33 mmol/L (21-32) Anion Gap 2 (6-14) Blood Urea Nitrogen 16 mg/dL (7-20) Creatinine 0.4 mg/dL (0.6-1.0) Estimated GFR (Cockcroft-Gault) 191.5 Glucose Level 101 mg/dL (70-99) Calcium Level 9.1 mg/dL (8.5-10.1) Magnesium Level 1.8 mg/dL (1.8-2.4) Medications Active Scripts Medications Dose Route/Sig Max Daily Dose Days Date Category Senokot (Sennosides) 8.6 Mg Tablet 1 Tab PO PRN BID PRN 09/19/17 Reported Zofran (Ondansetron Hcl) 4 Mg Tablet 4 Mg PO Q6HRS PRN 08/26/17 Reported Thera-M Tablet (Multivits,Ca,Minerals/Iron/Fa) 1 Each Tablet 1 Tab PO DAILY 30 08/26/17 Rx Hydrocodone-Apap 5-325 (Hydrocodone Bit/Acetaminophen) 1 Each Tablet 1 Tab PO PRN Q6HRS PRN 08/26/17 Rx Metoprolol Tartrate 25 Mg Tablet 25 Mg PO BID 30 08/01/17 Rx Diltiazem 24Hr Cd (Diltiazem HCl) 240 Mg Cap.er.24h 240 Mg PO DAILY 30 08/01/17 Rx Vitamin D (Cholecalciferol (Vitamin D3)) 1,000 Unit Tablet 1,000 Unit PO DAILY 30 06/20/17 Rx Crestor (Rosuvastatin Calcium) 5 Mg Tablet 20 PO HS 06/28/15 Reported Paroxetine Hcl 40 Mg Tablet 20 Mg PO DAILY 03/02/14 Reported Impression . 1. 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 2. atrial fibrillation Plan . 1.Therapeutic thoracentesis done. she can be discharged from pulmonary perspective. 2. Outpatient follow up with Dr. Roque after discharge will sign off DALTON PETERSON MD Sep 21, 2017 12:48
--- NOTE | 2017-09-21 13:07 | PDOC ---
PROGRESS NOTES Subjective Subjective thoracentesis done yesterday. lab reviewed,. feels better . nsr. not short of breath Objective Objective Vital Signs Date Time Temp Pulse Resp B/P (MAP) Pulse Ox O2 Delivery O2 Flow Rate FiO2 09/21/17 11:00 98.9 78 16 104/64 (77) 95 Nasal Cannula 2.0 98.9 Intake and Output 09/21/17 07:00 Intake Total 500 ml Output Total 1100 ml Balance -600 ml Intake Oral 500 ml Output Urine Total 450 ml Chest Tube Drainage Total 650 ml Physical Exam Abdomen: Soft Heart: Regular rate, Normal S1, Normal S2 Extremities: No edema General: Alert HEENT: Atraumatic Lungs: Other (clear left and decreased breath sounds 3/4 up on right) Neuro: Normal speech Psych/Mental Status: Mental status NL Skin: No rashes Assessment Assessment Problems1. Paroxysmal atrial flutter with a rapid ventricular response, converted to normal sinus rhythm 2. Right pleural effusion, which is recurrent. thoracentesis done 09/20 3. 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 4. Anemia of chronic disease. 5. Moderate protein calorie malnutrition. 6. Hyperlipidemia. hypomagnesemia resolved Medical Problems: (1) Atrial flutter with rapid ventricular response Status: Acute Plan Plan of Care dismiss today Comment Review of Relevant I have reviewed the following items edmundo (where applicable) has been applied. Labs Laboratory Tests Test 09/20/17 08:40 09/21/17 04:50 Sodium Level 140 mmol/L (136-145) 139 mmol/L (136-145) Potassium Level 3.7 mmol/L (3.5-5.1) 4.1 mmol/L (3.5-5.1) Chloride Level 102 mmol/L (98-107) 104 mmol/L (98-107) Carbon Dioxide Level 31 mmol/L (21-32) 33 mmol/L (21-32) Anion Gap 7 (6-14) 2 (6-14) Blood Urea Nitrogen 16 mg/dL (7-20) 16 mg/dL (7-20) Creatinine 0.5 mg/dL (0.6-1.0) 0.4 mg/dL (0.6-1.0) Estimated GFR (Cockcroft-Gault) 148.0 191.5 Glucose Level 129 mg/dL (70-99) 101 mg/dL (70-99) Calcium Level 9.9 mg/dL (8.5-10.1) 9.1 mg/dL (8.5-10.1) Magnesium Level 1.7 mg/dL (1.8-2.4) 1.8 mg/dL (1.8-2.4) White Blood Count 8.4 x10^3/uL (4.0-11.0) Red Blood Count 3.21 x10^6/uL (3.50-5.40) Hemoglobin 8.5 g/dL (12.0-15.5) Hematocrit 26.9 % (36.0-47.0) Mean Corpuscular Volume 84 fL (79-100) Mean Corpuscular Hemoglobin 27 pg (25-35) Mean Corpuscular Hemoglobin Concent 32 g/dL (31-37) Red Cell Distribution Width 18.7 % (11.5-14.5) Platelet Count 244 x10^3/uL (140-400) Neutrophils (%) (Auto) 80 % (31-73) Lymphocytes (%) (Auto) 7 % (24-48) Monocytes (%) (Auto) 11 % (0-9) Eosinophils (%) (Auto) 3 % (0-3) Basophils (%) (Auto) 0 % (0-3) Neutrophils # (Auto) 6.7 x10^3uL (1.8-7.7) Lymphocytes # (Auto) 0.6 x10^3/uL (1.0-4.8) Monocytes # (Auto) 0.9 x10^3/uL (0.0-1.1) Eosinophils # (Auto) 0.2 x10^3/uL (0.0-0.7) Basophils # (Auto) 0.0 x10^3/uL (0.0-0.2) Prothrombin Time 16.7 SEC (11.7-14.0) Prothromb Time International Ratio 1.4 (0.8-1.1) Laboratory Tests Test 09/21/17 04:50 White Blood Count 8.4 x10^3/uL (4.0-11.0) Red Blood Count 3.21 x10^6/uL (3.50-5.40) Hemoglobin 8.5 g/dL (12.0-15.5) Hematocrit 26.9 % (36.0-47.0) Mean Corpuscular Volume 84 fL (79-100) Mean Corpuscular Hemoglobin 27 pg (25-35) Mean Corpuscular Hemoglobin Concent 32 g/dL (31-37) Red Cell Distribution Width 18.7 % (11.5-14.5) Platelet Count 244 x10^3/uL (140-400) Neutrophils (%) (Auto) 80 % (31-73) Lymphocytes (%) (Auto) 7 % (24-48) Monocytes (%) (Auto) 11 % (0-9) Eosinophils (%) (Auto) 3 % (0-3) Basophils (%) (Auto) 0 % (0-3) Neutrophils # (Auto) 6.7 x10^3uL (1.8-7.7) Lymphocytes # (Auto) 0.6 x10^3/uL (1.0-4.8) Monocytes # (Auto) 0.9 x10^3/uL (0.0-1.1) Eosinophils # (Auto) 0.2 x10^3/uL (0.0-0.7) Basophils # (Auto) 0.0 x10^3/uL (0.0-0.2) Prothrombin Time 16.7 SEC (11.7-14.0) Prothromb Time International Ratio 1.4 (0.8-1.1) Sodium Level 139 mmol/L (136-145) Potassium Level 4.1 mmol/L (3.5-5.1) Chloride Level 104 mmol/L (98-107) Carbon Dioxide Level 33 mmol/L (21-32) Anion Gap 2 (6-14) Blood Urea Nitrogen 16 mg/dL (7-20) Creatinine 0.4 mg/dL (0.6-1.0) Estimated GFR (Cockcroft-Gault) 191.5 Glucose Level 101 mg/dL (70-99) Calcium Level 9.1 mg/dL (8.5-10.1) Magnesium Level 1.8 mg/dL (1.8-2.4) Medications Current Medications Diltiazem HCl (Cardizem) 20 mg 1X ONCE IVP Last administered on 09/19/17at 09: 39; Start 09/19/17 at 09:45; Stop 09/19/17 at 09:46; Status DC Sodium Chloride 1,000 ml @ 100 mls/hr Q10H IV Last administered on 09/19/17at 09:45; Start 09/19/17 at 09:18; Stop 09/19/17 at 19:17; Status DC Diltiazem HCl 125 mg/Dextrose 125 ml @ 5 mls/hr CONT PRN IV SEE I/O RECORD Last administered on 09/19/17at 09:39; Start 09/19/17 at 09:30; Stop 09/20/17 at 13:38; Status DC Acetaminophen/ Hydrocodone Bitart (Lortab 5/325) 1 tab PRN Q4HRS PRN PO MODERATE - SEVERE PAIN Last administered on 09/21/17at 12:33; Start 09/19/17 at 10:45 Lidocaine/Sodium Bicarbonate (Buffered Lidocaine 1%) 3 ml STK-MED ONCE .ROUTE ; Start 09/19/17 at 14:25; Stop 09/19/17 at 14:26; Status DC Vitamin D (Vitamin D3) 1,000 unit DAILY PO Last administered on 09/21/17at 08:38 ; Start 09/20/17 at 09:00 Paroxetine HCl (Paxil) 20 mg DAILY PO Last administered on 09/21/17 08:38; Start 09/19/17 at 16:00 Multivitamins (Thera M Plus) 1 tab DAILY PO Last administered on 09/21/17 08: 38; Start 09/20/17 at 09:00 Metoprolol Tartrate (Lopressor) 25 mg BID PO Last administered on 09/21/17at 08: 39; Start 09/19/17 at 21:00 Atorvastatin Calcium (Lipitor) 40 mg QHS PO Last administered on 09/20/17at 20: 55; Start 09/19/17 at 21:00 Acetaminophen (Tylenol) 650 mg PRN Q6HRS PRN PO MILD PAIN / TEMP; Start at 15:15 Diltiazem HCl (Cardizem 24hr Cd) 300 mg DAILY PO Last administered on at 08:38; Start 09/20/17 at 09:00 Diltiazem HCl (Cardizem) 60 mg 1X ONCE PO Last administered on 09/19/17at 17:17 ; Start 09/19/17 at 17:30; Stop 09/19/17 at 17:31; Status DC Sennosides (Senna) 8.6 mg PRN BID PRN PO CONSTIPATION Last administered on 09/21at 08:41; Start 09/19/17 at 20:45 Fentanyl Citrate (Fentanyl 2ml Vial) 25 mcg PRN Q4HRS PRN IV PAIN Last administered on 09/19/17at 23:17; Start 09/19/17 at 23:15 Fentanyl Citrate (Fentanyl 2ml Vial) 50 mcg PRN Q4HRS PRN IV PAIN; Start at 23:15 Ondansetron HCl (Zofran) 4 mg PRN Q6HRS PRN IV NAUSEA/VOMITING Last administered on 09/20/17at 11:12; Start 09/19/17 at 23:15 Magnesium Sulfate 50 ml @ 25 mls/hr 1X ONCE IV Last administered on 09/20/17at 13:01; Start 09/20/17 at 12:00; Stop 09/20/17 at 13:59; Status DC Lidocaine/Sodium Bicarbonate (Buffered Lidocaine 1%) 3 ml STK-MED ONCE .ROUTE ; Start 09/20/17 at 12:14; Stop 09/20/17 at 12:16; Status DC Lidocaine/Sodium Bicarbonate (Buffered Lidocaine 1%) 3 ml 1X ONCE INJ Last administered on 09/20/17at 12:49; Start 09/20/17 at 12:30; Stop 09/20/17 at 12:31 ; Status DC Potassium Chloride (Klor-Con) 20 meq 1X ONCE PO Last administered on at 16:59; Start 09/20/17 at 16:45; Stop 09/20/17 at 16:46; Status DC Warfarin Sodium (Coumadin) 2.5 mg DAILY16 PO Last administered on 09/20/17at 20: 03; Start 09/20/17 at 18:41 Warfarin Sodium (Coumadin Per Physician) 1 each PRN DAILY PRN MC SEE COMMENTS; Start 09/20/17 at 18:45 Active Scripts Active Thera-M Tablet (Multivits,Ca,Minerals/Iron/Fa) 1 Each Tablet 1 Tab PO DAILY 30 Days Hydrocodone-Apap 5-325 (Hydrocodone Bit/Acetaminophen) 1 Each Tablet 1 Tab PO PRN Q6HRS PRN Metoprolol Tartrate 25 Mg Tablet 25 Mg PO BID 30 Days Diltiazem 24Hr Cd (Diltiazem HCl) 240 Mg Cap.er.24h 240 Mg PO DAILY 30 Days Vitamin D (Cholecalciferol (Vitamin D3)) 1,000 Unit Tablet 1,000 Unit PO DAILY 30 Days Reported Senokot (Sennosides) 8.6 Mg Tablet 1 Tab PO PRN BID PRN Zofran (Ondansetron Hcl) 4 Mg Tablet 4 Mg PO Q6HRS PRN Crestor (Rosuvastatin Calcium) 5 Mg Tablet 20 PO HS Paroxetine Hcl 40 Mg Tablet 20 Mg PO DAILY Vitals/I & O Vital Sign - Last 24 Hours 09/20/17 09/20/17 09/20/17 09/20/17 15:00 19:35 20:00 20:56 Temp 98.1 97.9 98.1 97.9 Pulse 89 105 Resp 20 31 B/P (MAP) 113/64 (80) 126/68 (87) Pulse Ox 94 96 96 O2 Delivery Nasal Cannula Nasal Cannula Nasal Cannula Nasal Cannula O2 Flow Rate 2.0 2.0 2.0 2.0 09/20/17 09/20/17 09/20/17 09/21/17 20:56 21:46 23:35 03:28 Temp 98.3 98.5 98.3 98.5 Pulse 105 78 86 Resp 18 23 B/P (MAP) 126/68 94/58 (70) 98/59 (72) Pulse Ox 96 96 95 O2 Delivery Nasal Cannula Room Air Nasal Cannula O2 Flow Rate 2.0 2.0 2.0 09/21/17 09/21/17 09/21/17 09/21/17 07:00 08:00 08:38 08:39 Temp 98.4 98.4 Pulse 107 107 107 Resp 18 B/P (MAP) 124/69 (87) 124/69 124/69 Pulse Ox 99 O2 Delivery Nasal Cannula Nasal Cannula O2 Flow Rate 2.0 2.0 09/21/17 11:00 Temp 98.9 98.9 Pulse 78 Resp 16 B/P (MAP) 104/64 (77) Pulse Ox 95 O2 Delivery Nasal Cannula O2 Flow Rate 2.0 Intake and Output 09/20/17 09/20/17 09/21/17 15:00 23:00 07:00 Intake Total 400 ml 100 ml Output Total 650 ml 450 ml 0 ml Balance -650 ml -50 ml 100 ml SHANTHI VARGAS MD Sep 21, 2017 13:07
[2017-09-21] MEDS ORDERED: HYDR-2758 PO (13:17)
[2017-09-21] MEDS ORDERED: RIVA20TA2 PO (13:17)
[2017-09-21] MEDS ORDERED: DILT300C52 PO (13:17)
--- NOTE | 2017-09-21 13:23 | PDOC ---
Provider Note Provider Note discharge summary dictated # [id number] SHANTHI VARGAS MD Sep 21, 2017 13:22
--- NOTE | 2017-09-21 13:55 | DS ---
DATE OF DISCHARGE: 09/21/2017 PROCEDURE: Thoracentesis by Interventional Radiology. CONSULTANTS: With Dr. Gloria and Dr. Lenz. FINAL DIAGNOSES: 1. Paroxysmal atrial flutter with a rapid ventricular response. 2. Recurrent right pleural effusion. 3. Sarcomatoid carcinoma of the lung, treated with immunotherapy and some radiation therapy. 4. Anemia of chronic disease. 5. Moderate protein-calorie malnutrition. 6. Hyperlipidemia. HOSPITAL COURSE: The patient is a 67-year-old -[place] female with history of a sarcomatoid carcinoma of the right lung, undergone chemo and now immunotherapy, limited radiation therapy, followed by Dr. Jordan and also seen at the [facility], who has had several right-sided thoracentesis done, the last one was Monday, prior to admission, with 700 mL fluid removed and then she was supposed to have another one on 09/19/2017 Interventional Radiology, she had a rapid heart rate, was sent to the Emergency Room where she was noted to be in atrial flutter with a rapid ventricular response, received 20 mg IV Cardizem and started on a Cardizem drip and converted to normal sinus rhythm. In addition, she was noted to have a large recurrent right-sided thoracentesis and underwent a thoracentesis with removal around 600 mL of fluid, which she tolerated well. She maintained sinus rhythm. She had an echocardiogram done previously in 07/2017, which showed a left ventricular ejection fraction of 70% with some mass seen in the vicinity of the right atrium, probably related to her lung tumor. The patient was seen by Dr. Gloria in consultation, who started the patient on Coumadin and received one dose yesterday. After discussion with Dr. Lenz, he concurred that Xarelto could be used in the setting of her lung cancer since lung cancer is pretty much calcified and it would be okay, so we will discontinue the Coumadin, started on Xarelto. I had called in for Dr. Gloria and waiting for him to return that call. The patient's Cardizem drip was discontinued and her Cardizem dose was increased to 300 mg once a day and she maintained sinus rhythm. She therefore will be dismissed to home on Xarelto 20 mg every day; vitamin D 1000 units every day; Paxil 20 mg every day; Jeffrey 5/325 one every 4 hours p.r.n. 60 tablets, no refill; multiple vitamin once a day; metoprolol tartrate 25 mg b.i.d.; Crestor 20 mg every day, Deisy 180 mg every day p.r.n. We discussed the risks of bleeding with Xarelto. Again, her diltiazem ER was increased to 300 mg every day. She will make an appointment to see Dr. Macdonald in the office next week and follow up with Dr. Roque and Dr. Gloria in the office in 1-2 weeks. SHANTHI MACDONALD MD DR: RUBIO/nishant JOB#: [id number] / [id number]
[2017-09-21 15:00] VITALS: BP 120/67
--- NOTE | 2017-09-21 16:47 | PDOC ---
PROGRESS NOTES Subjective Subjective Patient feels better today. No cardiac complaints. Objective Objective Vital Signs Date Time Temp Pulse Resp B/P (MAP) Pulse Ox O2 Delivery O2 Flow Rate FiO2 09/21/17 15:00 98.7 79 16 120/67 (84) 95 Nasal Cannula 2.0 98.7 Intake and Output 09/21/17 07:00 Intake Total 500 ml Output Total 1100 ml Balance -600 ml Intake Oral 500 ml Output Urine Total 450 ml Chest Tube Drainage Total 650 ml Physical Exam Physical Exam No significant changes in cardiac exam. Assessment Assessment Patient compensated. Agree with discharging the patient today. We will follow the patient as an outpatient Comment Review of Relevant I have reviewed the following items edmundo (where applicable) has been applied. Labs Laboratory Tests Test 09/20/17 08:40 09/21/17 04:50 Sodium Level 140 mmol/L (136-145) 139 mmol/L (136-145) Potassium Level 3.7 mmol/L (3.5-5.1) 4.1 mmol/L (3.5-5.1) Chloride Level 102 mmol/L (98-107) 104 mmol/L (98-107) Carbon Dioxide Level 31 mmol/L (21-32) 33 mmol/L (21-32) Anion Gap 7 (6-14) 2 (6-14) Blood Urea Nitrogen 16 mg/dL (7-20) 16 mg/dL (7-20) Creatinine 0.5 mg/dL (0.6-1.0) 0.4 mg/dL (0.6-1.0) Estimated GFR (Cockcroft-Gault) 148.0 191.5 Glucose Level 129 mg/dL (70-99) 101 mg/dL (70-99) Calcium Level 9.9 mg/dL (8.5-10.1) 9.1 mg/dL (8.5-10.1) Magnesium Level 1.7 mg/dL (1.8-2.4) 1.8 mg/dL (1.8-2.4) White Blood Count 8.4 x10^3/uL (4.0-11.0) Red Blood Count 3.21 x10^6/uL (3.50-5.40) Hemoglobin 8.5 g/dL (12.0-15.5) Hematocrit 26.9 % (36.0-47.0) Mean Corpuscular Volume 84 fL (79-100) Mean Corpuscular Hemoglobin 27 pg (25-35) Mean Corpuscular Hemoglobin Concent 32 g/dL (31-37) Red Cell Distribution Width 18.7 % (11.5-14.5) Platelet Count 244 x10^3/uL (140-400) Neutrophils (%) (Auto) 80 % (31-73) Lymphocytes (%) (Auto) 7 % (24-48) Monocytes (%) (Auto) 11 % (0-9) Eosinophils (%) (Auto) 3 % (0-3) Basophils (%) (Auto) 0 % (0-3) Neutrophils # (Auto) 6.7 x10^3uL (1.8-7.7) Lymphocytes # (Auto) 0.6 x10^3/uL (1.0-4.8) Monocytes # (Auto) 0.9 x10^3/uL (0.0-1.1) Eosinophils # (Auto) 0.2 x10^3/uL (0.0-0.7) Basophils # (Auto) 0.0 x10^3/uL (0.0-0.2) Prothrombin Time 16.7 SEC (11.7-14.0) Prothromb Time International Ratio 1.4 (0.8-1.1) Laboratory Tests Test 09/21/17 04:50 White Blood Count 8.4 x10^3/uL (4.0-11.0) Red Blood Count 3.21 x10^6/uL (3.50-5.40) Hemoglobin 8.5 g/dL (12.0-15.5) Hematocrit 26.9 % (36.0-47.0) Mean Corpuscular Volume 84 fL (79-100) Mean Corpuscular Hemoglobin 27 pg (25-35) Mean Corpuscular Hemoglobin Concent 32 g/dL (31-37) Red Cell Distribution Width 18.7 % (11.5-14.5) Platelet Count 244 x10^3/uL (140-400) Neutrophils (%) (Auto) 80 % (31-73) Lymphocytes (%) (Auto) 7 % (24-48) Monocytes (%) (Auto) 11 % (0-9) Eosinophils (%) (Auto) 3 % (0-3) Basophils (%) (Auto) 0 % (0-3) Neutrophils # (Auto) 6.7 x10^3uL (1.8-7.7) Lymphocytes # (Auto) 0.6 x10^3/uL (1.0-4.8) Monocytes # (Auto) 0.9 x10^3/uL (0.0-1.1) Eosinophils # (Auto) 0.2 x10^3/uL (0.0-0.7) Basophils # (Auto) 0.0 x10^3/uL (0.0-0.2) Prothrombin Time 16.7 SEC (11.7-14.0) Prothromb Time International Ratio 1.4 (0.8-1.1) Sodium Level 139 mmol/L (136-145) Potassium Level 4.1 mmol/L (3.5-5.1) Chloride Level 104 mmol/L (98-107) Carbon Dioxide Level 33 mmol/L (21-32) Anion Gap 2 (6-14) Blood Urea Nitrogen 16 mg/dL (7-20) Creatinine 0.4 mg/dL (0.6-1.0) Estimated GFR (Cockcroft-Gault) 191.5 Glucose Level 101 mg/dL (70-99) Calcium Level 9.1 mg/dL (8.5-10.1) Magnesium Level 1.8 mg/dL (1.8-2.4) Medications Current Medications Diltiazem HCl (Cardizem) 20 mg 1X ONCE IVP Last administered on 09/19/17at 09: 39; Start 09/19/17 at 09:45; Stop 09/19/17 at 09:46; Status DC Sodium Chloride 1,000 ml @ 100 mls/hr Q10H IV Last administered on 09/19/17at 09:45; Start 09/19/17 at 09:18; Stop 09/19/17 at 19:17; Status DC Diltiazem HCl 125 mg/Dextrose 125 ml @ 5 mls/hr CONT PRN IV SEE I/O RECORD Last administered on 09/19/17at 09:39; Start 09/19/17 at 09:30; Stop 09/20/17 at 13:38; Status DC Acetaminophen/ Hydrocodone Bitart (Lortab 5/325) 1 tab PRN Q4HRS PRN PO MODERATE - SEVERE PAIN Last administered on 09/21/17 12:33; Start 09/19/17 at 10:45 Lidocaine/Sodium Bicarbonate (Buffered Lidocaine 1%) 3 ml STK-MED ONCE .ROUTE ; Start 09/19/17 at 14:25; Stop 09/19/17 at 14:26; Status DC Vitamin D (Vitamin D3) 1,000 unit DAILY PO Last administered on 09/21/17 08:38 ; Start 09/20/17 at 09:00 Paroxetine HCl (Paxil) 20 mg DAILY PO Last administered on 09/21/17 08:38; Start 09/19/17 at 16:00 Multivitamins (Thera M Plus) 1 tab DAILY PO Last administered on 09/21/17 08: 38; Start 09/20/17 at 09:00 Metoprolol Tartrate (Lopressor) 25 mg BID PO Last administered on 09/21/17 08: 39; Start 09/19/17 at 21:00 Atorvastatin Calcium (Lipitor) 40 mg QHS PO Last administered on 09/20/17at 20: 55; Start 09/19/17 at 21:00 Acetaminophen (Tylenol) 650 mg PRN Q6HRS PRN PO MILD PAIN / TEMP; Start at 15:15 Diltiazem HCl (Cardizem 24hr Cd) 300 mg DAILY PO Last administered on 08:38; Start 09/20/17 at 09:00 Diltiazem HCl (Cardizem) 60 mg 1X ONCE PO Last administered on 09/19/17 17:17 ; Start 09/19/17 at 17:30; Stop 09/19/17 at 17:31; Status DC Sennosides (Senna) 8.6 mg PRN BID PRN PO CONSTIPATION Last administered on 09/21 08:41; Start 09/19/17 at 20:45 Fentanyl Citrate (Fentanyl 2ml Vial) 25 mcg PRN Q4HRS PRN IV PAIN Last administered on 09/19/17 23:17; Start 09/19/17 at 23:15 Fentanyl Citrate (Fentanyl 2ml Vial) 50 mcg PRN Q4HRS PRN IV PAIN; Start at 23:15 Ondansetron HCl (Zofran) 4 mg PRN Q6HRS PRN IV NAUSEA/VOMITING Last administered on 09/20/17at 11:12; Start 09/19/17 at 23:15 Magnesium Sulfate 50 ml @ 25 mls/hr 1X ONCE IV Last administered on 09/20/17at 13:01; Start 09/20/17 at 12:00; Stop 09/20/17 at 13:59; Status DC Lidocaine/Sodium Bicarbonate (Buffered Lidocaine 1%) 3 ml STK-MED ONCE .ROUTE ; Start 09/20/17 at 12:14; Stop 09/20/17 at 12:16; Status DC Lidocaine/Sodium Bicarbonate (Buffered Lidocaine 1%) 3 ml 1X ONCE INJ Last administered on 09/20/17at 12:49; Start 09/20/17 at 12:30; Stop 09/20/17 at 12:31 ; Status DC Potassium Chloride (Klor-Con) 20 meq 1X ONCE PO Last administered on at 16:59; Start 09/20/17 at 16:45; Stop 09/20/17 at 16:46; Status DC Warfarin Sodium (Coumadin) 2.5 mg DAILY16 PO Last administered on 09/20/17at 20: 03; Start 09/20/17 at 18:41; Stop 09/21/17 at 13:19; Status DC Warfarin Sodium (Coumadin Per Physician) 1 each PRN DAILY PRN MC SEE COMMENTS; Start 09/20/17 at 18:45; Stop 09/21/17 at 13:19; Status DC Rivaroxaban (Xarelto) 20 mg DAILYWSUP PO ; Start 09/21/17 at 17:00 Active Scripts Active Xarelto (Rivaroxaban) 20 Mg Tablet 20 Mg PO DAILY 30 Days Diltiazem 24Hr Cd (Diltiazem HCl) 300 Mg Cap.er.24h 300 Mg PO DAILY 30 Days Hydrocodone-Apap 5-325 (Hydrocodone Bit/Acetaminophen) 1 Each Tablet 1 Tab PO PRN Q6HRS PRN Thera-M Tablet (Multivits,Ca,Minerals/Iron/Fa) 1 Each Tablet 1 Tab PO DAILY 30 Days Metoprolol Tartrate 25 Mg Tablet 25 Mg PO BID 30 Days Vitamin D (Cholecalciferol (Vitamin D3)) 1,000 Unit Tablet 1,000 Unit PO DAILY 30 Days Reported Senokot (Sennosides) 8.6 Mg Tablet 1 Tab PO PRN BID PRN Crestor (Rosuvastatin Calcium) 5 Mg Tablet 20 PO HS Paroxetine Hcl 40 Mg Tablet 20 Mg PO DAILY Vitals/I & O Vital Sign - Last 24 Hours 09/20/17 09/20/17 09/20/17 09/20/17 19:35 20:00 20:56 20:56 Temp 97.9 97.9 Pulse 105 105 Resp 31 B/P (MAP) 126/68 (87) 126/68 Pulse Ox 96 96 O2 Delivery Nasal Cannula Nasal Cannula Nasal Cannula O2 Flow Rate 2.0 2.0 2.0 09/20/17 09/20/17 09/21/17 09/21/17 21:46 23:35 03:28 07:00 Temp 98.3 98.5 98.4 98.3 98.5 98.4 Pulse 78 86 107 Resp 18 B/P (MAP) 94/58 (70) 98/59 (72) 124/69 (87) Pulse Ox 96 96 95 99 O2 Delivery Room Air Nasal Cannula Nasal Cannula O2 Flow Rate 2.0 2.0 2.0 09/21/17 09/21/17 09/21/17 09/21/17 08:00 08:38 08:39 11:00 Temp 98.9 98.9 Pulse 107 107 78 Resp 16 B/P (MAP) 124/69 124/69 104/64 (77) Pulse Ox 95 O2 Delivery Nasal Cannula Nasal Cannula O2 Flow Rate 2.0 2.0 09/21/17 09/21/17 13:53 15:00 Temp 98.7 98.7 Pulse 79 Resp 16 B/P (MAP) 120/67 (84) Pulse Ox 95 O2 Delivery Nasal Cannula Nasal Cannula O2 Flow Rate 2.0 2.0 Intake and Output 09/20/17 09/20/17 09/21/17 15:00 23:00 07:00 Intake Total 400 ml 100 ml Output Total 650 ml 450 ml 0 ml Balance -650 ml -50 ml 100 ml Nutrition Consultation Dietary Evaluation: Recommendations by RD: Protein supplementation Comments: continue w/cardiac diet REC Ensure Clear per pt request TiD Expected Outcomes/Goals: PO intake to meet >75% est needs Interpretation of weight loss: >5% in 1 month Malnutrition Findings: Body Fat Depletion (Non Severe: Mild Depletion Weight Status: Appropriate JEFERSON STEINER MD Sep 21, 2017 16:47
[2017-09-21] MEDS ORDERED: RIVAROXABAN 10 MG TABLET. PO SCH (17:00)
== END 2017-09-21 17:15 | disposition home or self-care (01) | DRG 180 ==
LOC: ER 09:01 → 2 NORTH 10:35
PROVIDERS: ADMIT Internal Medicine; ATTEND Internal Medicine
PROC: 0W993ZZ Drainage of Right Pleural Cavity, Percutaneous Approach (ICD-10-PCS; principal; 2017-09-20)
DX: C34.91 Malignant neoplasm of unspecified part of right bronchus or lung (principal); J96.21 Acute and chronic respiratory failure with hypoxia; I48.92 Unspecified atrial flutter; E44.0 Moderate protein-calorie malnutrition; J91.0 Malignant pleural effusion; Z68.1 Body mass index [BMI] 19.9 or less, adult; E78.00 Pure hypercholesterolemia, unspecified; I48.0 Paroxysmal atrial fibrillation; D63.8 Anemia in other chronic diseases classified elsewhere; E78.5 Hyperlipidemia, unspecified; E83.42 Hypomagnesemia; I10 Essential (primary) hypertension; K21.9 Gastro-esophageal reflux disease without esophagitis; F32.9 Major depressive disorder, single episode, unspecified; M19.90 Unspecified osteoarthritis, unspecified site; Z88.2 Allergy status to sulfonamides; Z92.21 Personal history of antineoplastic chemotherapy; Z86.010 Personal history of colon polyps; Z79.899 Other long term (current) drug therapy; Z92.3 Personal history of irradiation; Z82.49 Family history of ischemic heart disease and other diseases of the circulatory system; Z83.3 Family history of diabetes mellitus
CPT/HCPCS: 32555; 36415; 71045; 80048; 80053; 82553; 83735; 83880; 84439; 84443; 84484; 85025; 85610; 93005; 96365; 96366; 99291; J2405; J3010; J3475; J3490; J7030

== ENCOUNTER 2017-10-12 08:46 | Outpatient (CLI) | payer MEDICARE, BC ==
[~2017-10-12] VITALS: Ht 162.6 cm; Wt 48.5 kg
[2017-10-12] VITALS (10 sets, daily range): BP systolic 100–144; BP diastolic 57–70
[~2017-10-12 08:46] MED LIST changes: +DILT300C65 PO; +RIVA20TA2 PO; +SENN8.6T99 PO
[2017-10-12] MEDS ORDERED: LIDOCAINE WITH 8.4% SOD BICARB 3 ML DISP.SYRIN. ONE (09:17)
[2017-10-12] MEDS ORDERED: LIDOCAINE WITH 8.4% SOD BICARB 3 ML DISP.SYRIN. INJ ONE (09:45)
--- NOTE | 2017-10-12 10:59 | RAD ---
Ultrasound-guided right-sided thoracentesis 10/12/2017 Indication: Lung Cancer, Recurrent Right Pleural Effusion Procedure: Informed consent was obtained. A timeout procedure was performed. Sonographic evaluation of the right chest was performed demonstrating moderate pleural effusion. The right posterior chest was prepped and draped in sterile fashion. 1% lidocaine without epinephrine was administered for local anesthesia. Real-time ultrasonographic guidance was used in passing a 5 Setswana Selfie.comeh catheter into the right pleural space. 0.7 L of pleural fluid was aspirated. The catheter was removed and pressure held to achieve hemostasis. A sterile dressing was applied. No immediate complications were identified. The patient tolerated the procedure well. Impression: Right sided ultrasound-guided thoracentesis
--- NOTE | 2017-10-12 14:02 | RAD ---
Portable chest, 10/12/2017: HISTORY: Postthoracentesis evaluation Comparison is made to a study from 09/20/2017. That study was also obtained following a thoracentesis. There is a large partially calcified lung mass in the right lower chest with adjacent pleural fluid and atelectasis/infiltrate. This is unchanged since the previous study. No pneumothorax is seen postthoracentesis. No significant left lung infiltrate or left-sided pleural fluid is evident. The heart size is unchanged. IMPRESSION: 1. Persistent large calcified right lower chest mass with residual pleural fluid and atelectasis/infiltrate. 2. No evidence of pneumothorax status post right thoracentesis. Electronically signed by: Niels Bernal MD (10/12/2017 1:59 PM) [facility]
== END 2017-10-12 11:45 | disposition home or self-care (01) ==
LOC: INTRAD 08:46
PROVIDERS: ATTEND Internal Medicine Pulmonary Disease
DX: J90 Pleural effusion, not elsewhere classified (principal); K21.9 Gastro-esophageal reflux disease without esophagitis; E78.5 Hyperlipidemia, unspecified; F32.9 Major depressive disorder, single episode, unspecified; Z79.899 Other long term (current) drug therapy; R06.02 Shortness of breath; F41.9 Anxiety disorder, unspecified; M19.90 Unspecified osteoarthritis, unspecified site; Z98.890 Other specified postprocedural states; Z85.118 Personal history of other malignant neoplasm of bronchus and lung; Z88.2 Allergy status to sulfonamides; Z85.41 Personal history of malignant neoplasm of cervix uteri; Z86.73 Personal history of transient ischemic attack (TIA), and cerebral infarction without residual deficits; Z88.1 Allergy status to other antibiotic agents; Z80.1 Family history of malignant neoplasm of trachea, bronchus and lung; Z80.3 Family history of malignant neoplasm of breast
CPT/HCPCS: 32555; 71045

== ENCOUNTER 2017-11-02 10:24 | Outpatient (CLI) | payer MEDICARE, BC ==
[~2017-11-02] VITALS: Ht 162.6 cm; Wt 49.0 kg
[2017-11-02 11:05] LABS: BASO % 0 % (0-3); EOS # 0.2 x10^3/uL (0.0-0.7); EOS % 2 % (0-3); HEMATOCRIT 30.5 % (36.0-47.0); HEMOGLOBIN 9.7 g/dL (12.0-15.5); LYMPH # 0.6 x10^3/uL (1.0-4.8); LYMPH % 8 % (24-48); MEAN CORPUSCULAR HEMOGLOBIN 26 pg (25-35); MEAN CORPUSCULAR HGB CONC 32 g/dL (31-37); MEAN CORPUSCULAR VOLUME 82 fL (79-100); MONO # 0.7 x10^3/uL (0.0-1.1); MONO % 10 % (0-9); NEUT # 5.7 x10^3uL (1.8-7.7); NEUT % 79 % (31-73); PLATELET COUNT 371 x10^3/uL (140-400); RED CELL DISTRIBUTION WIDTH 17.9 % (11.5-14.5); WHITE BLOOD COUNT 7.2 x10^3/uL (4.0-11.0)
[2017-11-02 11:41] VITALS: BP 122/55
== END 2017-11-02 15:00 | disposition home or self-care (01) ==
LOC: INTRAD 10:24
PROVIDERS: ATTEND Internal Medicine Pulmonary Disease
DX: J90 Pleural effusion, not elsewhere classified (principal); Z53.8 Procedure and treatment not carried out for other reasons; Z88.2 Allergy status to sulfonamides
CPT/HCPCS: 36415; 85025; 85610

== ENCOUNTER → 2017-11-07 | Outpatient (CLI) | payer MEDICARE, BC ==
[2017-11-02 11:41] VITALS: BP 122/55
--- NOTE | 2017-11-07 15:37 | RAD ---
Chest, 2 views, 11/07/2017: HISTORY: Cough, lung cancer Comparison is made to a study from 10/12/2017. A large calcified mass is again noted in the right mid and lower chest. There is adjacent pleural thickening compatible with pleural fluid. There is moderate underlying atelectasis/infiltrate. These findings appear unchanged. The heart size is unchanged. The pulmonary vascularity as best seen on the left is within normal limits. There is mild linear atelectasis or scarring in the left base. No left-sided pleural fluid is seen. Moderate spurring is present in the spine. IMPRESSION: 1. Persistent large calcified right chest mass with associated pleural fluid and underlying atelectasis/infiltrate, similar to that seen on 10/12/2017. 2. Mild left basilar linear atelectasis and/or scarring. Electronically signed by: Niels Bernal MD (11/07/2017 3:33 PM) [facility]
== END | disposition home or self-care (01) ==
LOC: OPSVCOP 11:51
PROVIDERS: ATTEND Internal Medicine
DX: R22.2 Localized swelling, mass and lump, trunk (principal); I10 Essential (primary) hypertension; E78.5 Hyperlipidemia, unspecified; E78.00 Pure hypercholesterolemia, unspecified; K21.9 Gastro-esophageal reflux disease without esophagitis; I48.0 Paroxysmal atrial fibrillation; Z86.79 Personal history of other diseases of the circulatory system; Z85.41 Personal history of malignant neoplasm of cervix uteri; Z85.118 Personal history of other malignant neoplasm of bronchus and lung; Z92.3 Personal history of irradiation; Z87.39 Personal history of other diseases of the musculoskeletal system and connective tissue; Z86.010 Personal history of colon polyps; Z92.21 Personal history of antineoplastic chemotherapy; Z86.73 Personal history of transient ischemic attack (TIA), and cerebral infarction without residual deficits; Z83.3 Family history of diabetes mellitus; Z80.1 Family history of malignant neoplasm of trachea, bronchus and lung; Z80.3 Family history of malignant neoplasm of breast; Z82.49 Family history of ischemic heart disease and other diseases of the circulatory system; Z88.2 Allergy status to sulfonamides; Z88.1 Allergy status to other antibiotic agents
CPT/HCPCS: 71046

== ENCOUNTER 2017-11-15 07:15 | Outpatient (CLI) | payer MEDICARE, BC ==
[~2017-11-15] VITALS: Ht 162.6 cm; Wt 49.0 kg
[2017-11-15 07:46] VITALS: BP 114/64
--- NOTE | 2017-11-17 14:28 | RAD ---
Limited CT evaluation of the chest. 11/17/2017 Indication: Evaluate degree of right pleural fluid with possible Thoracentesis Discussion: Limited CT evaluation of the chest was performed. Large peripherally calcified tumor in the right chest is again noted. This occupies the majority of the right mid and inferior thorax. There is a small to moderate loculated appearing right upper pleural effusion. Only scant effusion is seen in the basal areas secondary to the tumor. The left lung demonstrates mild atelectasis but is otherwise unremarkable. There is mediastinal shift secondary to the tumor, similar to prior exam. The patient was offered thoracentesis, but has no significant clinical symptoms at this time. We will perform when necessary thoracentesis, possibly a CT guidance, based on clinical VÁZQUEZ. Impression: [id number] loculated right apical pleural fluid collection. Patient refers thoracentesis at this time. We'll perform thoracentesis on a when necessary basis. PQRS Compliance Statement: One or more of the following individualized dose reduction techniques were utilized for this examination: 1. Automated exposure control 2. Adjustment of the mA and/or kV according to patient size 3. Use of iterative reconstruction technique
== END 2017-11-15 09:27 | disposition home or self-care (01) ==
LOC: INTRAD 07:15
PROVIDERS: ATTEND Internal Medicine Pulmonary Disease
DX: J90 Pleural effusion, not elsewhere classified (principal); J98.11 Atelectasis; Z88.2 Allergy status to sulfonamides; D49.89 Neoplasm of unspecified behavior of other specified sites
CPT/HCPCS: 71250

== ENCOUNTER 2017-11-30 07:20 | Outpatient (CLI) | payer MEDICARE, BC ==
[~2017-11-30] VITALS: Ht 162.6 cm; Wt 49.9 kg
[~2017-11-30 07:20] MED LIST changes: -DILT240C77 PO; +DILT240C82 PO; -HYDR-2758 PO; +HYDR-2761 PO
[2017-11-30 07:41] VITALS: BP 139/74
--- NOTE | 2017-11-30 08:51 | RAD ---
Ultrasound of the chest compared to similar study dated 11/02/2017 for right chest mass and pleural effusion. Technique and findings: Real-time grayscale ultrasound of the posterior and anterior right chest is performed. There is a small amount of pleural fluid at the posterior right lung base as well as at the anterior lateral apex, however there is been no significant interval cannulation of fluid, and there is a large densely calcified mass with intervening lung at the right lung base. Findings were felt to preclude safe ultrasound-guided thoracentesis. Impression: 1. Stable appearing small right basilar and right apical lateral pleural effusion with large right lung mass. The patient states she is experiencing small amount of chest pain, however no shortness of breath. Patient was encouraged to return upon development of difficulty with breathing for CT scan of the chest followed by CT guided thoracentesis.
--- NOTE | 2017-11-30 10:08 | NUR ---
Patient had no fluid to drain so returned to CV/OBS area and waited for her friend to arrive to give her a ride home. Patient left with all of her possessions including her home oxygen tank. Patient will follow up with Nikki's office.
[2018-02-27] MEDS ORDERED: AMOX1TAB11 PO (10:41)
== END 2017-11-30 09:30 | disposition home or self-care (01) ==
LOC: INTRAD 07:20
PROVIDERS: ATTEND Internal Medicine Pulmonary Disease
DX: J90 Pleural effusion, not elsewhere classified (principal); R91.8 Other nonspecific abnormal finding of lung field
CPT/HCPCS: 76882

== ENCOUNTER 2017-12-15 15:59 | Emergency (ER) | payer MEDICARE, BC ==
[~2017-12-15] VITALS: Ht 162.6 cm; Wt 49.0 kg
[~2017-12-15 15:59] MED LIST changes: +DILT240C77 PO; -DILT240C82 PO; +HYDR-2758 PO; -HYDR-2761 PO
[2017-12-15 16:59] LABS: BASO % 1 % (0-3); EOS # 0.2 x10^3/uL (0.0-0.7); EOS % 2 % (0-3); HEMATOCRIT 31.7 % (36.0-47.0); HEMOGLOBIN 10.1 g/dL (12.0-15.5); LYMPH # 0.7 x10^3/uL (1.0-4.8); LYMPH % 10 % (24-48); MEAN CORPUSCULAR HEMOGLOBIN 26 pg (25-35); MEAN CORPUSCULAR HGB CONC 32 g/dL (31-37); MEAN CORPUSCULAR VOLUME 82 fL (79-100); MONO # 0.7 x10^3/uL (0.0-1.1); MONO % 9 % (0-9); NEUT # 5.8 x10^3uL (1.8-7.7); NEUT % 78 % (31-73); PLATELET COUNT 307 x10^3/uL (140-400); RED BLOOD COUNT 3.86 x10^6/uL (3.50-5.40); RED CELL DISTRIBUTION WIDTH 20.4 % (11.5-14.5); WHITE BLOOD COUNT 7.4 x10^3/uL (4.0-11.0)
[2017-12-15 17:17] LABS: PLT ESTIMATE ADEQUATE (ADEQUATE)
[2017-12-15 17:19] LABS: ANISOCYTOSIS MOD
--- NOTE | 2017-12-15 17:21 | PHYS DOC ---
Past Medical History Past Medical History: Cancer, Depression, GERD, High Cholesterol Additional Past Medical Histor: RIGHT LUNG CA TREATED W/ CHEMO/RADIATION Past Surgical History: Other Additional Past Surgical Histo: D&C,MULTIPLE THORACENTESIS,R LUNG BIOPSY 2017 Alcohol Use: Occasionally Drug Use: None Adult General Chief Complaint Chief Complaint: OTHER COMPLAINTS HPI HPI 67-year-old female presents to ER via POV with c/o she noticed her rt breast to be swollen this afternoon. She reports she hadn't noticed any swelling until today and that was after she had some rt areola irritation. She denies any pain , discharge, redness, or recent injury to rt breast. 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 She thinks last drain was in Oct. She denies feeling SOA or having any CP/palpitations. She denies N/V, fever, or other sxs. She reports she had been seen at her PCPs office today however hadn't noticed her rt breast to be swollen. So she hadn't had eval. She called Dr. Macdonald's office and he told her to come to ER for eval. Review of Systems Review of Systems Constitutional: Denies fever or chills [] Eyes: Denies change in visual acuity, redness, or eye pain [] HENT: Denies nasal congestion or sore throat [] Respiratory: Denies cough or shortness of breath- reports O2 dependent Cardiovascular: Denies CP GI: Denies abdominal pain, nausea, vomiting, bloody stools or diarrhea [] : Denies dysuria or hematuria [] Musculoskeletal: Denies back pain or joint pain [] Integument: Denies rash or skin lesions. Reports rt breast swelling- no drainage /discharge, redness, or skin discoloration Neurologic: Denies headache, focal weakness or sensory changes [] All other systems were reviewed and found to be within normal limits, except as documented in this note. Allergies Allergies Allergies Coded Allergies Type Severity Reaction Last Updated Verified Sulfa (Sulfonamide Antibiotics) Allergy Severe facial swelling and rash Yes Physical Exam Physical Exam Constitutional: Well developed, well nourished, no acute distress, non-toxic appearance. [] HENT: Normocephalic, atraumatic, oropharynx moist, no oral exudates, nose normal. [] Eyes: PERRLA, conjunctiva normal, no discharge. [] Neck: Normal range of motion, no tenderness, supple, no stridor.No gross adenopathy Cardiovascular:Heart rate regular rhythm, no murmur [] Lungs & Thorax: Bilateral breath sounds clear to auscultation. Resp. equal/ nonlabored. Unsymmetrical breast with rt breast larger. No skin discoloration. No inversion of areola bilat. Lt breast exam NL- no tenderness. Rt breast exam: soft on palp. with no palp. abscess- no induration. No tenderness on exam- rt axillary exam NL with no tenderness/gross adenopathy Abdomen: Bowel sounds normal, soft, no tenderness, no masses, no pulsatile masses. [] Skin: Warm, dry, no erythema, no rash. [] Back: No tenderness, no CVA tenderness. [] Extremities: No tenderness, no cyanosis, no clubbing, ROM intact, no edema. [] Neurologic: Alert and oriented X 3, normal motor function, normal sensory function, no focal deficits noted. [] Psychologic: Affect normal, judgement normal, mood normal. [] Current Patient Data Vital Signs Vital Signs Date Time Temp Pulse Resp B/P (MAP) Pulse Ox O2 Delivery O2 Flow Rate FiO2 12/15/17 18:20 78 18 128/72 (90) 96 12/15/17 16:27 98.8 Nasal Cannula 2.0 98.8 Lab Values Laboratory Tests Test 12/15/17 16:51 12/15/17 17:15 White Blood Count 7.4 x10^3/uL (4.0-11.0) Red Blood Count 3.86 x10^6/uL (3.50-5.40) Hemoglobin 10.1 g/dL (12.0-15.5) L Hematocrit 31.7 % (36.0-47.0) L Mean Corpuscular Volume 82 fL (79-100) Mean Corpuscular Hemoglobin 26 pg (25-35) Mean Corpuscular Hemoglobin Concent 32 g/dL (31-37) Red Cell Distribution Width 20.4 % (11.5-14.5) H Platelet Count 307 x10^3/uL (140-400) Neutrophils (%) (Auto) 78 % (31-73) H Lymphocytes (%) (Auto) 10 % (24-48) L Monocytes (%) (Auto) 9 % (0-9) Eosinophils (%) (Auto) 2 % (0-3) Basophils (%) (Auto) 1 % (0-3) Neutrophils # (Auto) 5.8 x10^3uL (1.8-7.7) Lymphocytes # (Auto) 0.7 x10^3/uL (1.0-4.8) L Monocytes # (Auto) 0.7 x10^3/uL (0.0-1.1) Eosinophils # (Auto) 0.2 x10^3/uL (0.0-0.7) Basophils # (Auto) 0.0 x10^3/uL (0.0-0.2) Platelet Estimate Adequate (ADEQUATE) Anisocytosis Mod Sodium Level 142 mmol/L (136-145) Potassium Level 3.6 mmol/L (3.5-5.1) Chloride Level 102 mmol/L (98-107) Carbon Dioxide Level 32 mmol/L (21-32) Anion Gap 8 (6-14) Blood Urea Nitrogen 12 mg/dL (7-20) Creatinine 0.5 mg/dL (0.6-1.0) L Estimated GFR (Cockcroft-Gault) 148.0 BUN/Creatinine Ratio 24 (6-20) H Glucose Level 111 mg/dL (70-99) H Calcium Level 9.4 mg/dL (8.5-10.1) Total Bilirubin 0.3 mg/dL (0.2-1.0) Aspartate Amino Transferase (AST) 17 U/L (15-37) Alanine Aminotransferase (ALT) 21 U/L (14-59) Alkaline Phosphatase 121 U/L (46-116) H Total Protein 7.6 g/dL (6.4-8.2) Albumin 3.2 g/dL (3.4-5.0) L Albumin/Globulin Ratio 0.7 (1.0-1.7) L Laboratory Tests 12/15/17 16:51 Laboratory Tests 12/15/17 17:15 EKG EKG [] Radiology/Procedures Radiology/Procedures PROCEDURE: CHEST PA & LATERAL EXAM: Chest, 2 views. HISTORY: Pain. COMPARISON: 11/07/2017 FINDINGS: 2 views of the chest are obtained. There is a large right pleural effusion and diffuse right lung interstitial infiltrate or compression atelectasis, stable in appearance. There is a large calcified mass within the right thorax. There is cardiomegaly. There is no pneumothorax. There is asymmetric enlargement of the right breast. There is hyperinflation likely due to emphysema. IMPRESSION: 1. Large right pleural effusion and diffuse right lung infiltrate or compressive atelectasis, stable in appearance. 2. Partially calcified large right thoracic mass, better characterized on the CT dated 08/23/2017. 3. Cardiomegaly. 4. Right breast asymmetric enlargement, stable in appearance. Electronically signed by: Rosaura Ramirez MD (12/15/2017 6:01 PM) [facility] DICTATED and SIGNED BY: ROSAURA RAMIREZ MD DATE: 12/15/17 628 PROCEDURE: BREAST RIGHT EXAM: Right breast sonogram. HISTORY: Right breast swelling status post thoracentesis. TECHNIQUE: Sonographic imaging of the right breast was performed including all 4 quadrants and the retroareolar region. COMPARISON: Chest radiograph obtained on the same date and chest radiograph dated 09/11/2017. FINDINGS: There is diffuse right breast soft tissue edema. No mass or loculated fluid collection is seen. IMPRESSION: 1. Diffuse right breast soft tissue edema. No mass, cyst or abscess is seen. In the absence of and clinical history suggesting an infectious etiology, the possibility of inflammatory breast cancer or extension of a known large right pulmonary mass is not excluded. Mammography may be useful for characterization if not recently performed. 2. Note is made of asymmetry in the size of the right greater than left breast on chest radiographs dating to 09/11/2017. Electronically signed by: Rosaura Ramirez MD (12/15/2017 6:23 PM) [facility] DICTATED and SIGNED BY: ROSAURA RAMIREZ MD DATE: 12/15/178 Course & Med Decision Making Course & Med Decision Making Pertinent Labs and Imaging studies reviewed. (See chart for details) 1803: Discussed pt's case and imaging with pt's PCP Dr. Macdonald- her lab results similar to previous ones in her records . He is ok with home discharge of pt with her to f/u at his office next week. This was discussed with pt and she is also comfortable with home discharge and plans to call Dr. Macdonald's office Monday- she was advised if sxs worsen or with concerns she should return to ER this for re-eval. Education provided on signs and symptoms to return to ER for. At this time patient is in no visible distress speaking in full sentences with equal nonlabored respirations. Patient denies pain at this time. Patient is smiling and reports if symptoms change or worsen she will return to ER. Discharge instructions were discussed. Patient's case and plan of care was discussed with Dr. Jj. Amaya Disclaimer Amaya Disclaimer This electronic medical record was generated, in whole or in part, using a voice recognition dictation system. Departure Departure Impression: Primary Impression: Breast swelling Disposition: HOME, SELF-CARE Condition: STABLE Referrals: SHANTHI MACDONALD MD (PCP) Patient Instructions: Edema Additional Instructions: You have swelling of the right breast which you should monitor for worsening signs. Follow-up with Dr. Macdonald next week if symptoms persist or with worsening symptoms. [employer] Dec 15, 2017 17:21
[2017-12-15 17:51] LABS: CALCIUM 9.4 mg/dL (8.5-10.1); CREATININE 0.5 mg/dL (0.6-1.0); POTASSIUM 3.6 mmol/L (3.5-5.1)
[2017-12-15 17:58] LABS: ALBUMIN 3.2 g/dL (3.4-5.0); ALBUMIN/GLOBULIN RATIO 0.7 (1.0-1.7); TOTAL BILIRUBIN 0.3 mg/dL (0.2-1.0); TOTAL PROTEIN 7.6 g/dL (6.4-8.2)
--- NOTE | 2017-12-15 18:04 | RAD ---
EXAM: Chest, 2 views. HISTORY: Pain. COMPARISON: 11/07/2017 FINDINGS: 2 views of the chest are obtained. There is a large right pleural effusion and diffuse right lung interstitial infiltrate or compression atelectasis, stable in appearance. There is a large calcified mass within the right thorax. There is cardiomegaly. There is no pneumothorax. There is asymmetric enlargement of the right breast. There is hyperinflation likely due to emphysema. IMPRESSION: 1. Large right pleural effusion and diffuse right lung infiltrate or compressive atelectasis, stable in appearance. 2. Partially calcified large right thoracic mass, better characterized on the CT dated 08/23/2017. 3. Cardiomegaly. 4. Right breast asymmetric enlargement, stable in appearance. Electronically signed by: Rosaura Carrillo MD (12/15/2017 6:01 PM) [facility]
[2017-12-15 18:20] VITALS: BP 128/72
--- NOTE | 2017-12-15 18:26 | RAD ---
EXAM: Right breast sonogram. HISTORY: Right breast swelling status post thoracentesis. TECHNIQUE: Sonographic imaging of the right breast was performed including all 4 quadrants and the retroareolar region. COMPARISON: Chest radiograph obtained on the same date and chest radiograph dated 09/11/2017. FINDINGS: There is diffuse right breast soft tissue edema. No mass or loculated fluid collection is seen. IMPRESSION: 1. Diffuse right breast soft tissue edema. No mass, cyst or abscess is seen. In the absence of and clinical history suggesting an infectious etiology, the possibility of inflammatory breast cancer or extension of a known large right pulmonary mass is not excluded. Mammography may be useful for characterization if not recently performed. 2. Note is made of asymmetry in the size of the right greater than left breast on chest radiographs dating to 09/11/2017. Electronically signed by: Rosaura Carrillo MD (12/15/2017 6:23 PM) [facility]
== END 2017-12-15 18:21 | disposition home or self-care (01) ==
LOC: ER 15:59
DX: N63.10 Unspecified lump in the right breast, unspecified quadrant (principal); J90 Pleural effusion, not elsewhere classified; I51.7 Cardiomegaly; J98.11 Atelectasis; E78.00 Pure hypercholesterolemia, unspecified; K21.9 Gastro-esophageal reflux disease without esophagitis; Z85.118 Personal history of other malignant neoplasm of bronchus and lung; Z88.2 Allergy status to sulfonamides
CPT/HCPCS: 36415; 71046; 76641; 80053; 85025; 99285-25

== ENCOUNTER → 2018-01-05 | Outpatient (CLI) | payer MEDICARE, BC ==
[2017-12-15 18:20] VITALS: BP 128/72
[~2018-01-05] MED LIST changes: -DILT240C77 PO; +DILT240C82 PO; -HYDR-2758 PO; +HYDR-2761 PO
--- NOTE | 2018-01-05 10:57 | RAD ---
DATE: 01/05/2018 EXAM: MAMMO TED ROLA BILAT HISTORY: Right breast enlargement COMPARISON: 03/17/2015 This study was interpreted with the benefit of Computerized Aided Detection (CAD). Breast Density: HETERO The breast parenchyma is heterogenously dense, which could reduce sensitivity of mammography. Breast parenchyma level C. FINDINGS: 2-D and 3-D tomosynthesis imaging was performed in CC and MLO projections. Both breasts demonstrate heterogeneously increased density which has progressed since the previous study. There is skin thickening bilaterally. The findings are compatible with diffuse edema, right greater than left. No discrete breast mass is seen. Benign type calcifications are present on the left. No suspicious microcalcifications have developed. Faint radiopacities in the left axillary region are probably due to her related artifacts. IMPRESSION: 1. Streaky edema and skin thickening in both breasts, right greater than left. The findings are most likely due to central venous or lymphatic obstruction or perhaps radiation therapy changes in this patient with known chest malignancy. 2. No discrete breast mass is identified BI-RADS CATEGORY: 3 PROBABLY BENIGN FINDING(S)-SHORT INTERVAL FOLLOW-UP SUGGESTED RECOMMENDED FOLLOW-UP: CLIN FOLLOW UP IMAGING CLINICALLY INDICATED PQRS compliance statement: Patient information was entered into a reminder system with a target due date for the next mammogram. Mammography is a sensitive method for finding small breast cancers, but it does not detect them all and is not a substitute for careful clinical examination. A negative mammogram does not negate a clinically suspicious finding and should not result in delay in biopsying a clinically suspicious abnormality. "Our facility is accredited by the [employer] Mammography [employer]."
== END | disposition home or self-care (01) ==
LOC: MAMMO 09:54
PROVIDERS: ATTEND Internal Medicine
DX: R60.0 Localized edema (principal); R23.4 Changes in skin texture
CPT/HCPCS: 77066; G0279; 77062

== ENCOUNTER → 2018-01-16 | Outpatient (CLI) | payer MEDICARE, BC ==
[~2018-01-16] MED LIST changes: +IOHEXOL 240 MG/ML 50ML VIAL. PO ONE; +IOHEXOL 300 MG/ML 100ML VIAL. IV ONE
--- NOTE | 2018-01-16 17:14 | RAD ---
Whole body bone scan Clinical indications: Lung cancer. Back pain. TECHNIQUE: After IV infusion of 25.4 mCi of technetium 99m MDP, delayed anterior and posterior planar images of the whole skeleton were performed. COMPARISON: No previous bone scan available. CT study of the chest abdomen and pelvis performed today. FINDINGS: Bilateral renal function is evident. There is asymmetric radiotracer activity involving the right chest related to breast tissue. Right breast appears swollen in comparison to the left side on the chest CT. Degenerative activity is seen involving both knees and feet and shoulders. There is activity seen involving the right lower chest which corresponds to a large calcified mass of the right lower lung zone seen on the chest CT. There is degenerative activity of the sternum. Increased activity of L4- and L5 is seen anteriorly which is positional. No lytic process is seen here on the abdomen and pelvis CT. IMPRESSION: No pattern of uptake is seen to indicate osseous metastatic disease. There is diffuse increased uptake involving the right breast. This corresponds to enlargement of the right breast on chest CT. Right breast appears diffusely swollen on the chest CT. This could be due to mastitis or inflammatory carcinoma of the right breast. Ill-defined activity is seen involving the right lower lung zone as well which corresponds to a large calcified mass seen on chest CT. Electronically signed by: Dennis Moyer MD (01/16/2018 5:10 PM) [facility]
--- NOTE | 2018-01-17 10:00 | RAD ---
PQRS Compliance Statement: One or more of the following individualized dose reduction techniques were utilized for this examination: 1. Automated exposure control 2. Adjustment of the mA and/or kV according to patient size 3. Use of iterative reconstruction technique CT CHEST ABD PELVIS W/CONTRAST Clinical Indication: STAGING LUNG CANCER Comparison: CT chests without contrast, August 23, 2017. CT chest with contrast July 28, 2017. Technique: Helical CT imaging of the chest, abdomen and pelvis is performed after 75 cc of Omnipaque 300 IV contrast. Oral contrast also given. Findings: There is asymmetric subcutaneous edema and skin thickening of the right breast that may be sequela of therapy. There are several mildly enlarged right axillary lymph nodes, for example image 16. There is moderate right pleural effusion but smaller than on prior study. Large partially calcified mass of the right hemithorax is similar in size but there is a soft tissue component that is worse. Contiguous with the partially calcified mass there is heterogeneously enhancing soft tissue mass that is displacing mediastinal contents and is positioned in the anterior mediastinum as seen on coronal image 12. This mass measures on the order of 6.4 cm AP by 10.8 cm transverse by 15.4 cm craniocaudal. This mass was present on the prior study but was nearly inseparable from surrounding pleural fluid. The degree of mediastinal shift is mildly worse. Mass effect on the right atrium has increased. Mass effect on the left atrium is similar. Aeration of the right upper lung is mildly improved. There is consolidated lung with bronchiectasis more inferiorly. Linear opacity in the left lower lobe may be scarring or atelectasis. Tiny hypodensity in the right hepatic lobe, too small to further characterize. Liver otherwise homogeneous. Gallbladder, spleen, pancreas, and adrenal glands are normal. Abdominal aorta normal caliber. No hydronephrosis. Nonobstructing right renal calculi. Tiny right cortical cyst. There appears to be wall thickening of the gastric antrum. No surrounding inflammation. No dilated small bowel. No colon wall thickening. No retroperitoneal adenopathy. Urinary bladder is normal. Trace pelvic free fluid. Myomatous uterus. No osteolytic or blastic lesion is identified. IMPRESSION: 1. Large mass of the right hemithorax has increased in size. The calcified component is similar but soft tissue component medially has increased in size. The superior portion is positioned in the location of the anterior mediastinum, mediastinal shift to the left is mildly worse. There is increased mass effect on the right atrium. 2. Aeration of the right upper lung is mildly improved. 3. Moderate right pleural effusion, smaller than on prior study. 4. There is asymmetric subcutaneous edema of the right breast and skin thickening that is presumably sequela of radiation. There is right axillary adenopathy that may be reactive. Suggest attention on follow-up. 5. No evidence of metastatic disease in the abdomen or pelvis. 6. Question wall thickening of the gastric antrum. Correlate for clinical symptoms of gastritis. 7. Mild pelvic free fluid. Electronically signed by: Blaine Zacarias MD (01/17/2018 9:56 AM) [id number]
== END | disposition home or self-care (01) ==
LOC: NM 08:45
PROVIDERS: ATTEND Internal Medicine Hematology & Oncology
DX: J90 Pleural effusion, not elsewhere classified (principal); Z85.118 Personal history of other malignant neoplasm of bronchus and lung
CPT/HCPCS: 71260; 74177; 78306; 96374; A9503; Q9966; Q9967

== ENCOUNTER → 2018-05-18 | Outpatient (CLI) | payer MEDICARE, BC ==
[2018-02-23 07:00] VITALS: BP 119/75
[~2018-05-18] MED LIST changes: +AMOX1TAB11 PO; +BENZ100C PO; +CONTRAST GIVEN. MC PRN; -ESTR1TAB3 PO; -IOHEXOL 240 MG/ML 50ML VIAL. PO ONE; +PREMPRO 0.3 MG1 EACH PO
--- NOTE | 2018-05-18 13:54 | RAD ---
Examination: CT CHEST W/CONTRAST History: lung cancer Omni 300 75ml
Comparison/Correlation: 01/16/2018 CT chest abdomen and pelvis with contrast, 02/22/2018 CT chest without contrast, 02/25/2018 portable chest x-ray exam Findings: Axial images of chest were obtained following IV contrast. Sagittal and coronal reformatted images were provided. Minimal left costophrenic sulcus linear atelectasis is present. Left lung field is unremarkable otherwise. Moderate to large right pleural effusion is present. Large low-attenuation with a calcified rim structure is again noted within the right mid to low thoracic cavity. Multiple masses are present again involving the anterior mediastinum and at the medial right base. Largest of these measures up to 9.5 cm transverse. Displacement of the mediastinum to the left is evident. Masses are evident posterior to the mediastinum as well. Atelectasis involving the partially aerated right apex noted. Small loculated pericardial effusion is unchanged. Partially visualized upper abdomen is unremarkable. Bony thorax is unremarkable. Impression: No change in multiple right thoracic and mediastinal masses. No change in right pulmonary aeration. Improved aeration of the left lung base with minimal residual linear atelectasis. Small likely pericardial effusion is unchanged. PQRS Compliance Statement: One or more of the following individualized dose reduction techniques were utilized for this examination: 1. Automated exposure control 2. Adjustment of the mA and/or kV according to patient size 3. Use of iterative reconstruction technique Electronically signed by: Macario Johnson MD (05/18/2018 1:51 PM) [facility]
== END | disposition home or self-care (01) ==
LOC: CT 10:11
PROVIDERS: ATTEND Radiology Radiation Oncology
DX: C34.90 Malignant neoplasm of unspecified part of unspecified bronchus or lung (principal); J98.11 Atelectasis; J90 Pleural effusion, not elsewhere classified
CPT/HCPCS: 71260; Q9967

== ENCOUNTER → 2018-07-12 | Outpatient (CLI) | payer MEDICARE, BC ==
[2018-02-23 07:00] VITALS: BP 119/75
[~2018-07-12] MED LIST changes: -CONTRAST GIVEN. MC PRN; -IOHEXOL 300 MG/ML 100ML VIAL. IV ONE
--- NOTE | 2018-07-12 12:04 | RAD ---
PA and lateral chest x-ray compared to portable chest dated February 28, 2018 for cough, sarcoma, left scapular pain. FINDINGS: There is redemonstration wideout throughout the right lung, with densely calcified right lung mass consistent with patient's history of sarcoma. Left lung is grossly clear, though there may be some perihilar infiltrates or early vascular congestion. Blunting on the left suggests trace pleural effusion. No significant soft tissue or osseous abnormalities. IMPRESSION: 1. Grossly stable appearance of the chest, with whiteout on the right and a large calcified tumor. 2. Possible perihilar infiltrates are early vascular congestion on the left. There may be a subtle left basilar effusion as well. Electronically signed by: Osmel Bourgeois MD (07/12/2018 12:01 PM) [id number]
== END | disposition home or self-care (01) ==
LOC: RAD 11:29
PROVIDERS: ATTEND Internal Medicine
DX: R91.8 Other nonspecific abnormal finding of lung field (principal)
CPT/HCPCS: 71046

== ENCOUNTER 2018-07-16 10:25 | Outpatient (CLI) | payer MEDICARE, BC ==
[~2018-07-16] VITALS: Ht 162.6 cm; Wt 48.1 kg
[2018-07-16] VITALS (13 sets, daily range): BP systolic 90–142; BP diastolic 54–68
[2018-07-16 11:04] LABS: BASO % 1 % (0-3); EOS # 0.1 x10^3/uL (0.0-0.7); EOS % 1 % (0-3); HEMATOCRIT 33.7 % (36.0-47.0); HEMOGLOBIN 10.9 g/dL (12.0-15.5); LYMPH # 0.3 x10^3/uL (1.0-4.8); LYMPH % 4 % (24-48); MEAN CORPUSCULAR HEMOGLOBIN 26 pg (25-35); MEAN CORPUSCULAR HGB CONC 32 g/dL (31-37); MEAN CORPUSCULAR VOLUME 81 fL (79-100); MONO # 0.6 x10^3/uL (0.0-1.1); MONO % 7 % (0-9); NEUT # 7.2 x10^3uL (1.8-7.7); NEUT % 88 % (31-73); PLATELET COUNT 291 x10^3/uL (140-400); RED BLOOD COUNT 4.14 x10^6/uL (3.50-5.40); RED CELL DISTRIBUTION WIDTH 18.4 % (11.5-14.5); WHITE BLOOD COUNT 8.2 x10^3/uL (4.0-11.0)
[2018-07-16 11:47] LABS: % BANDS 3 % (0-9); % LYMPHS 4 % (24-48); % MONOS 8 % (0-10); % SEGS 85 % (35-66); ANISOCYTOSIS SLIGHT; PLT ESTIMATE ADEQUATE (ADEQUATE)
[2018-07-16 11:48] LABS: OVALOCYTES FEW
[2018-07-16] MEDS ORDERED: oxyCODONE/APAP 5/325 1 TAB TABLET PO ONE (12:15)
--- NOTE | 2018-07-16 14:24 | RAD ---
CT-guided, right thoracentesis 07/16/2018 Indication: Large partially calcified mass involving the majority of the right hemithorax extending the mediastinum associated small pleural effusion. Patient is experiencing increased shortness of breath, chest pressure, and cough. She is undergone multiple prior thoracentesis, and though the amount of fluid is relatively small desires attempted thoracentesis to see if this can be of any help with chest pressure, another current symptoms. Discussion: The risks and benefits of the procedure were discussed the patient. Informed consent was obtained. Timeout procedure was performed. The posterior right chest was prepped and draped using sterile barrier technique. CT imaging redemonstrates a small superior somewhat loculated appearing pleural fluid collection. Following the administration of 1% lidocaine for local anesthesia a 5 Czech Yueh needle was advanced into this collection and aspiration gently performed. Following the evacuation of approximately 200 cc of serous fluid, the patient began to have mild chest discomfort. Aspiration was discontinued. Repeat CT imaging imaging demonstrates a not unexpected pneumothorax ex vacuo with findings consistent with trapped lung. This is been demonstrated previously following thoracentesis. The catheter was removed and the patient was transferred to the [facility] in stable condition. Impression: CT-guided right thoracentesis
--- NOTE | 2018-07-16 14:55 | RAD ---
CHEST AP ONLY History: Post thoracentesis. Trapped lung. Pneumothorax. COMPARISON: July 12, 2018. FINDINGS: Slightly improved aeration of the upper lobe of the right lung but its distal most of the right hemithorax is opacified. No definite pneumothorax. Densely calcified right lung mass is again seen. Left lung is grossly clear. Some mild parahilar and upper lobe markings are stable. No large left pleural effusion. IMPRESSION: 1. Extensive opacification and consolidation of the right lung is again seen although there is slightly improved aeration at the apex. 2. No definite pneumothorax. Electronically signed by: Feliciano Delaney MD (07/16/2018 2:52 PM) [id number]
--- NOTE | 2018-07-16 14:56 | NUR ---
Discharge Note: CHARMAINE RIVAS Discharge instructions and discharge home medications reviewed with Patient and a copy given. All questions have been answered and understanding verbalized. The following instructions and handouts were given: thoracentesis,incision care Discontinued lines and drains: intact. Patient discharged to Home or Self Care withFriendvia Wheelchair
== END 2018-07-16 14:35 | disposition home or self-care (01) ==
LOC: INTRAD 10:25
PROVIDERS: ATTEND Internal Medicine Pulmonary Disease
DX: J90 Pleural effusion, not elsewhere classified (principal)
CPT/HCPCS: 32555; 36415; 71045; 85007; 85025; 85610